=== PATIENT | female | born 1930 | race Caucasian/White ===

== ENCOUNTER 2016-10-11 08:20 | Emergency (ER) | payer MEDICARE ==
[~2016-10-11 08:20] MED LIST: ACYC400T21 PO; ASP81TEC PO; BACI30OI7 TP; BENZ200C25 PO; CALC-250 PO; CPR250T PO; DOCU-143 PO; DOCU-238 PO; HYDR-3816 PO; HYDR-707 PO; LEVO500T2 PO; LEVO500T69 PO; LEVO50TA6 PO; LEVO50TA63 PO; LVT.025T PO; METR500T PO; NITR-65 PO; POLY17PO23 PO; VIT1TABL93 PO; VITAMIN D 10000 UNIT PO; [UNRECOGNIZED DRUG - REMARK]
--- OUTSIDE RECORDS SUMMARY | 2016-10-11 08:25 | XMS REPORT | Continuity of Care Document ---
Author Author [facility] Organization [facility] Address Unknown Phone Unavailable Care Team Providers Care Body And Frame Man Name Role Phone Sasha Mcneil III PCP [phone] Source Comments Some departments are not documenting in the electronic medical record. If you do not see the information that you expected, contact Release of Information in the Health Information Management department at [phone] for further assistance in locating additional records.[facility] Active Allergies and Adverse Reactions Allergen Noted Date Severity Reactions Comments Pineapple 02/24/2015 Medium HIVES Sulfa (Sulfonamide 02/24/2015 High HIVES, SHORTNESS OF Antibiotics) BREATH, EDEMA Tomato 02/24/2015 Medium HIVES Current Medications Prescription Sig. Disp. Refills Start End Date Status Date levothyroxine (SYNTHROID) Take 50 mcg by mouth Active 50 mcg tablet daily. Cholecalciferol (Vitamin Take 5,000 Units by mouth Active D3) 5,000 unit tab at bedtime daily. senna/docusate Take 1 Tab by mouth twice 60 Tab 2 03/20/20 Active (SENOKOT-S) 8.6/50 mg daily. Hold for loose 15 tablet stools. 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 Sosa is an 85 yo with a diagnosis of Paget's disease of the Vulva. PRIOR THERAPY: 1. Status post WLE of a left vulvar lesion which was thought to be VICKIE III, cannot r/o microinvasion. On 03/19/2015 she underwent the WLE and the pathology was c/w: Pagets disease. 2. She presents to the office for postoperative followup. She had a negative mammogram and colonoscopy. L ast Assessment & Plan: The vulva has healed. However she has noted some LLE weakness, especially in getting up out of a sitting position. PLAN: Recommend that she contact her PCP, Dr. Mcneil, for a referral to PT for evaluation. Recommend that she follow up with her referral MD; however, as the patient lives in [place], she is desirous of seeing someone in [place]; so will have her see Dr. Eliazbeth Roper in [place] for routine followup, q 3 months x 2, then q 6 months. If recurrence I will see back. Syncopal episodes 02/24/2015 Overview: At least 4 episodes since summer. Unclear as to what workup done; told due to dehydration. Last 2 episodes over weekend, after showering. L ast Assessment & Plan: 02/24/2015 Due to the syncopal episodes, she will require a cardiac evaluation and workup prior to surgery. She would like done when she lives, in [place] Will need at least an ECHO; she has an intermittent murmur and may require a Holter. Social History Tobacco Use Types Packs/Day Years Used Date Never Smoker Smokeless Tobacco: Never Used Alcohol Use Drinks/Week oz/Week Comments No Last Filed Vital Signs Vital Sign Reading Time Taken Blood Pressure 137/80 06/30/2015 12:48 PM MERCANTILE REPORTER Pulse 65 06/30/2015 12:48 PM [employer]CANTILE REPORTER Temperature 36.4 C (97.5 F) 06/30/2015 12:48 PM MERCANTILE REPORTER Respiratory Rate - - Height 1.651 m (5' 5") 06/30/2015 12:48 PM MERCANTILE REPORTER Weight 66.679 kg (147 lb) 06/30/2015 12:48 PM MERCANTILE REPORTER Body Mass Index 24.46 06/30/2015 12:48 PM MERCANTILE REPORTER Oxygen Saturation 100% 06/30/2015 12:48 PM MERCANTILE REPORTER Plan of Care Health Maintenance Due Date Last Done Comments Physical (Comprehensive) 1938 Exam Pertussis Vaccine 1942 Tetanus Vaccine 01/29/1948 Shingles Vaccine 1991 Osteoporosis Screening 01/29/1996 Prevnar/Pneumovax (#1) 01/29/1996 Influenza Vaccine 04/29/2016 Results from Last 3 Months Not on file
== END 2016-10-11 08:26 | disposition left against medical advice (07) ==
LOC: EDUNIT# 08:20 → ER 08:21
DX: Z53.21 Procedure and treatment not carried out due to patient leaving prior to being seen by health care provider (principal)

== ENCOUNTER → 2018-08-08 | Outpatient (CLI) | payer MEDICARE ==
[~2018-08-08] MED LIST changes: +HYDR-34 PO; -HYDR-3816 PO; -POLY17PO23 PO; +POLY17PO31 PO
--- NOTE | 2018-08-08 17:36 | Diagnostic Imaging Report ---
PROCEDURE: US carotid duplex, bilateral. TECHNIQUE: Multiple real-time grayscale images were obtained over the carotid arteries in various projections, bilaterally. Additional spectral analysis and color Doppler duplex images were also obtained. DATE: August 08, 2018. INDICATION: 88-year-old female, transient ischemic attack. Altered speech. COMPARISON: November 05, 2013. FINDINGS: Peak systolic velocity in the right common carotid artery measures 84 cm/s. Peak systolic velocity in the right external carotid artery measures 77 cm/s. Peak systolic velocity in the right proximal internal carotid artery measures 62 cm/s, 63 cm/s in the mid right internal carotid artery, and 74 cm/s distally. There is patent antegrade flow in the right vertebral artery. Peak systolic velocity in the left common carotid artery measures 91 cm/s. Peak systolic velocity in the left external carotid artery measures 63 cm/s. Peak systolic velocity in the left proximal internal carotid artery measures 62 cm/s, 90 cm/s in the mid left internal carotid artery, and 63 cm/s distally. There is patent antegrade flow in the left vertebral artery. IMPRESSION: 1. Negative for hemodynamically significant right or left internal carotid artery stenosis. 2. Patent antegrade flow in the bilateral vertebral arteries. Parameters based on the consensus panel De Los Santos-Scale and Doppler ultrasound criteria published June 2003, Radiology, Volume 229. DOPPLER (peak systolic velocity M/S Right Left CCA .84 .73 ICA Proximal .61 .62 ICA Mid .63 .90 ICA Distal .73 .62 RATIO .88 1.23 ECA .77 .62 VERT .27 .31 Dictated by: Dictated on workstation # [id number]
== END ==
LOC: RAD 15:30
PROVIDERS: ATTEND Internal Medicine
DX: G45.9 Transient cerebral ischemic attack, unspecified (principal); R47.81 Slurred speech
CPT/HCPCS: 93880

== ENCOUNTER 2019-08-31 13:16 | Emergency (ER) | payer MEDICARE ==
[~2019-08-31] VITALS: Ht 165.1 cm; Wt 63.6 kg
[2019-08-31] MEDS ORDERED: fentaNYL INJECTION 100 MCG/2 ML AMP ONE (13:25)
--- NOTE | 2019-08-31 13:29 | ED Lower Extremity ---
General Chief Complaint: Trauma-Non Activation Stated Complaint: FALL Source: patient, EMS Exam Limitations: no limitations History of Present Illness Date Seen by Provider: Aug 31, 2019 Time Seen by Provider: 13:27 Initial Comments This 89-year-old white female presents after she fell and sustained an injury to her right hip shortly prior to presentation emergency department. She is complaining of pain and deformity of the right hip. She denies other signifi cant injury interaction. She denies injury to her head. She denies associated neck pain or paresthesias in extremities. She denied trauma to the chest abdomen or other extremities other than an abrasion to the right elbow. Allergies and Home Medications Allergies Coded Allergies: Sulfa (Sulfonamide Antibiotics) (Verified Allergy, Unknown, 05/04/14) Home Medications Cholecalciferol 5,000 Unit Capsule, 5,000 UNIT PO HS, (Reported) Hydrocodone Bit/Acetaminophen 1 Each Tablet, 0 EA PO Q4H PRN for PAIN Prescribed by: PAUL PACHECO on 05/22/16 1228 Levofloxacin 500 Mg Tablet, 500 MG PO DAILY Prescribed by: PAUL PACHECO on 05/22/16 1228 Levothyroxine Sodium 50 Mcg Tablet, 50 MCG PO DAILY, (Reported) Metronidazole 500 Mg Tablet, 500 MG PO TID Prescribed by: PAUL PACHECO on 05/22/16 1228 Polyethylene Glycol 3350 17 Gm Powd.pack, 17 GM PO BID Prescribed by: PAUL PACHECO on 05/22/16 1228 Patient Home Medication List Home Medication List Reviewed: Yes Review of Systems Constitutional: No chills, No fever EENTM: no symptoms reported Respiratory: no symptoms reported Cardiovascular: no symptoms reported; No chest pain Gastrointestinal: no symptoms reported; No abdominal pain, No nausea Musculoskeletal: see HPI, joint pain (right hip and right elbow) Skin: No change in color; other Psychiatric/Neurological: No Symptoms Reported (abrasion right elbow) Past Xeknogr-Fumudq-Xpewjo Hx Past Med/Social Hx: Reviewed Nursing Past Med/Soc Hx Patient Social History Recent Hopitalizations: No Immunizations Up To Date Tetanus Booster (TDap): Unknown Date of Pneumonia Vaccine: Aug 29, 2008 Date of Influenza Vaccine: Jun 19, 2015 Seasonal Allergies Seasonal Allergies: No Past Medical History Gallbladder Chronic Bronchitis Reproductive Disorders: No Bladder Infection, Kidney Stones Gastroesophageal Reflux, Pancreatitis, Gall Bladder Disease Osteoporosis Hypothyroidsim Cataract Eczema Family Medical History Cancer 09 BROTHER (ABDOMINAL CANCER ) Family history: Cardiovascular disease 03 MOTHER Family history: Diabetes mellitus 03 MOTHER 09 BROTHER Hypercholesterolemia 09 BROTHER Kidney disease 03 MOTHER 09 BROTHER Malignant neoplasm of lung 09 BROTHER Parkinson's disease 03 MOTHER No Family History of: Abdominal aortic aneurysm Jose Cruz's disease Alcoholism Cancer of colon Cataract Chest pain Congenital heart disease Congestive heart failure Cystic fibrosis Dementia Dysphagia Family history: Allergy Family history: Alzheimer's disease Family history: Arthritis Family history: Asthma Family history: Breast disease Family history: Coronary thrombosis Family history: Gastrointestinal disease Family history: Glaucoma Family history: Hypertension Family history: Osteoporosis Family history: Thyroid disorder Headache Hearing loss Heart disease Hereditary disease History of - anemia History of - disorder History of - respiratory disease History of drug abuse Human immunodeficiency virus (HIV) seropositivity Infertile Myocardial infarction Prostate cancer Psychotic disorder Seizure disorder Stroke Tuberculosis Visual impairment Physical Exam Vital Signs Vital Signs - First Documented 08/31/19 08/31/19 13:18 13:40 Temp 36.1 Pulse 69 Resp 18 B/P (MAP) 164/87 (112) Pulse Ox 96 O2 Delivery Nasal Cannula O2 Flow Rate 1.00 Capillary Refill : Height, Weight, BMI Height: 5'6.00" Weight: 142lbs. 0.0oz. 64.556531vl; 23.3 BMI Method:Stated General Appearance: WD/WN, mild distress HEENT: normal ENT inspection Neck: full range of motion, supple Cardiovascular: regular rate, rhythm Respiratory: lungs clear Gastrointestinal: normal bowel sounds, soft Back: normal inspection Hips: right hip pain Neurologic/Tendon: normal sensation, normal motor functions, normal tendon functions Neurologic/Psychiatric: no motor/sensory deficits, alert, normal mood/affect, oriented x 3 Skin: normal color, warm/dry Progress/Results/Core Measures Results/Orders Lab Results Laboratory Tests Test 08/31/19 13:29 Range/Units White Blood Count 7.3 4.3-11.0 10^3/uL Red Blood Count 5.54 4.35-5.85 10^6/uL Hemoglobin 16.1 H 11.5-16.0 G/DL Hematocrit 48 35-52 % Mean Corpuscular Volume 87 80-99 FL Mean Corpuscular Hemoglobin 29 25-34 PG Mean Corpuscular Hemoglobin Concent 33 32-36 G/DL Red Cell Distribution Width 13.3 10.0-14.5 % Platelet Count 148 130-400 10^3/uL Mean Platelet Volume 10.5 H 7.4-10.4 FL Neutrophils (%) (Auto) 65 42-75 % Lymphocytes (%) (Auto) 22 12-44 % Monocytes (%) (Auto) 9 0-12 % Eosinophils (%) (Auto) 3 0-10 % Basophils (%) (Auto) 0 0-10 % Neutrophils # (Auto) 4.8 1.8-7.8 X 10^3 Lymphocytes # (Auto) 1.6 1.0-4.0 X 10^3 Monocytes # (Auto) 0.7 0.0-1.0 X 10^3 Eosinophils # (Auto) 0.2 0.0-0.3 10^3/uL Basophils # (Auto) 0.0 0.0-0.1 10^3/uL Sodium Level 140 135-145 MMOL/L Potassium Level 4.4 3.6-5.0 MMOL/L Chloride Level 104 98-107 MMOL/L Carbon Dioxide Level 24 21-32 MMOL/L Anion Gap 12 5-14 MMOL/L Blood Urea Nitrogen 23 H 7-18 MG/DL Creatinine 1.39 H 0.60-1.30 MG/DL Estimat Glomerular Filtration Rate 36 BUN/Creatinine Ratio 17 Glucose Level 153 H 70-105 MG/DL Calcium Level 9.5 8.5-10.1 MG/DL Corrected Calcium 9.5 8.5-10.1 MG/DL Total Bilirubin 0.6 0.1-1.0 MG/DL Aspartate Amino Transf (AST/SGOT) 19 5-34 U/L Alanine Aminotransferase (ALT/SGPT) 15 0-55 U/L Alkaline Phosphatase 106 40-136 U/L Total Protein 7.2 6.4-8.2 GM/DL Albumin 4.0 3.2-4.5 GM/DL My Orders Orders - BRADY THAKKAR MD Fentanyl Injection (Sublimaze Injection (08/31/19 13:25) Fentanyl Injection (Sublimaze Injection (08/31/19 13:30) Cbc With Automated Diff (08/31/19 13:31) Comprehensive Metabolic Panel (08/31/19 13:31) Ua Culture If Indicated (08/31/19 13:31) Chest 1 View, Ap/Pa Only (08/31/19 13:31) Ekg Tracing (08/31/19 13:31) Hip, Right, 2 Views (08/31/19 13:47) Elbow, Right, 2 View (08/31/19 13:47) Morphine Injection (Morphine Injection (08/31/19 14:29) Catheter(Uri) To Dependent Ann-Marie (08/31/19 14:33) Medications Given in ED Current Medications Medications Dose Ordered Sig/Tri Route Start Time Stop Time Status Last Admin Dose Admin Fentanyl Citrate 100 mcg STK-MED ONCE .ROUTE 08/31/19 13:25 08/31/19 13:29 DC 08/31/19 13:30 50 MCG Vital Signs/I&O 08/31/19 08/31/19 13:18 13:40 Temp 36.1 Pulse 69 Resp 18 B/P (MAP) 164/87 (112) Pulse Ox 96 O2 Delivery Nasal Cannula O2 Flow Rate 1.00 Progress Progress Note : Time: 14:52 Progress Note The patient's right hip pain was treated initially with 50 g of fentanyl with good improvement for approximately an hour. The patient was then given 4 mg of morphine IV for her right hip pain which was returning. Patient was placed on supplemental oxygen and maintained sats in the high 90s. Radiographic evaluation demonstrated no evidence of fracture of the right elbow. The chest x-ray was unremarkable. X-ray of the right hip demonstrated a right neck fracture. [facility] has no orthopedic coverage this weekend. Telephone consultation was undertaken with Drs. Dowling and Efrain at [facility]. They were kind enough to accept the patient in transfer. Departure Impression Primary Impression: Closed right hip fracture Qualified Codes: S72.001A - Fracture of unspecified part of neck of right femur, initial encounter for closed fracture Disposition: XFER SHT-TRM HOSP Condition: Improved Transfer Transfer Reason: Exceeds level of care Time Spoke to Accepting Phy: 14:[address] Zuniga and Dr. Dowling. Patient is being transferred as we have no orthopedic coverage this weekend that [facility]. Transfer Time: 14:55 Transfer Facility: [facility]. Method of Transfer: EMS Departure-Patient Inst. Referrals: JUAN CARLOS MURILLO DO (PCP/Family) Primary Care Physician BRADY THAKKAR MD Aug 31, 2019 13:29
[2019-08-31] MEDS ORDERED: fentaNYL INJECTION 100 MCG/2 ML AMP IVP ONE (13:30)
[2019-08-31 13:37] LABS: BASOPHILS % (AUTO) 0 % (0-10); EOSINOPHILS # (AUTO) 0.2 10^3/uL (0.0-0.3); EOSINOPHILS % (AUTO) 3 % (0-10); HEMATOCRIT 48 % (35-52); HEMOGLOBIN 16.1 G/DL (11.5-16.0); LYMPHOCYTES # (AUTO) 1.6 X 10^3 (1.0-4.0); LYMPHOCYTES % (AUTO) 22 % (12-44); MEAN CORPUSCULAR HEMOGLOBIN 29 PG (25-34); MEAN CORPUSCULAR HGB CONC 33 G/DL (32-36); MEAN CORPUSCULAR VOLUME 87 FL (80-99); MEAN PLATELET VOLUME 10.5 FL (7.4-10.4); MONOCYTES # (AUTO) 0.7 X 10^3 (0.0-1.0); MONOCYTES % (AUTO) 9 % (0-12); NEUTROPHILS # (AUTO) 4.8 X 10^3 (1.8-7.8); NEUTROPHILS % (AUTO) 65 % (42-75); PLATELET COUNT 148 10^3/uL (130-400); RED CELL DISTRIBUTION WIDTH 13.3 % (10.0-14.5); WHITE BLOOD COUNT 7.3 10^3/uL (4.3-11.0)
[2019-08-31 13:54] LABS: BILIRUBIN,TOTAL 0.6 MG/DL (0.1-1.0); CALCIUM 9.5 MG/DL (8.5-10.1); CREATININE SERUM 1.39 MG/DL (0.60-1.30); POTASSIUM 4.4 MMOL/L (3.6-5.0); TOTAL PROTEIN 7.2 GM/DL (6.4-8.2)
[2019-08-31] MEDS ORDERED: morphine INJ 10 MG/ML 1ML (SYR OR VIAL) IVP STA ×2 (14:29→16:11)
--- NOTE | 2019-08-31 14:29 | Diagnostic Imaging Report ---
INDICATION: Fall. TIME OF EXAM: 2:08 PM COMPARISON is made with prior chest from 05/04/2014. Heart size is stable. The lungs appear to be clear. No infiltrates are seen. There is no effusion or pneumothorax. There is some linear scarring or atelectasis in the left base. IMPRESSION: Stable chest. No acute feature is detected. Dictated by: Dictated on workstation # [id number]
--- NOTE | 2019-08-31 14:30 | Diagnostic Imaging Report ---
INDICATION: Fall onto right hip. TIME OF EXAM: 2:08 PM 2 views of the right hip demonstrate a fracture of the right femoral neck. Femoral acetabular alignment is maintained. Joint space is maintained. Mild coxa varus deformity is seen. IMPRESSION: Right femoral neck fracture. Dictated by: Dictated on workstation # [id number]
--- NOTE | 2019-08-31 14:34 | Diagnostic Imaging Report ---
INDICATION: Fall with right elbow injury. TIME OF EXAM: 02:09 p.m. FINDINGS: Two views of the right elbow were obtained. Alignment is normal. No fracture, dislocation, or effusion is detected. IMPRESSION: No acute bony abnormality is detected. Dictated by: Dictated on workstation # [id number]
[2019-08-31 15:02] LABS: BILIRUBIN,URINE NEGATIVE (NEGATIVE); CLARITY,URINE CLEAR; COLOR,URINE YELLOW; GLUCOSE, URINE (UA) NEGATIVE (NEGATIVE); KETONES,URINE NEGATIVE (NEGATIVE); LEUKOCYTE ESTERASE ,URINE NEGATIVE (NEGATIVE); NITRITE,URINE NEGATIVE (NEGATIVE); PH,URINE 5.5 (5-9); PROTEIN,URINE NEGATIVE (NEGATIVE)
[2019-08-31 15:14] LABS: AMORPHOUS SEDIMENT,UR MOD AMOR URATES /LPF; BACTERIA,URINE TRACE /HPF
[2019-08-31 16:10] VITALS: BP 136/80
== END 2019-08-31 16:10 | disposition short-term general hospital (02) ==
LOC: EDUNIT# 13:16 → ER 13:17
DX: S72.001A Fracture of unspecified part of neck of right femur, initial encounter for closed fracture (principal); J42 Unspecified chronic bronchitis; K21.9 Gastro-esophageal reflux disease without esophagitis; M81.0 Age-related osteoporosis without current pathological fracture; E03.9 Hypothyroidism, unspecified; Z88.2 Allergy status to sulfonamides; Z87.442 Personal history of urinary calculi; Z88.8 Allergy status to other drugs, medicaments and biological substances; Z82.49 Family history of ischemic heart disease and other diseases of the circulatory system; Z80.1 Family history of malignant neoplasm of trachea, bronchus and lung; W19.XXXA Unspecified fall, initial encounter
CPT/HCPCS: 36415; 51702; 71045; 73070; 73502; 80053; 81000; 85025; 93005; 96374; 96375

== ENCOUNTER 2019-09-04 03:30 | Inpatient (IN) | payer MEDICARE ==
[~2019-09-04] VITALS: Ht 165.1 cm; Wt 66.2 kg
[2019-09-04] MEDS ORDERED: ALPRAZolam 0.25 MG (XANAX) TAB PO PRN (13:15)
[2019-09-04] MEDS ORDERED: ONDANSETRON 4 MG (ZOFRAN) ORAL DISSOLVE TAB PO PRN (13:15)
[2019-09-04] MEDS ORDERED: CALCIUM CARBONATE 500 MG (TUMS) TAB.CHEW PO PRN (13:15)
[2019-09-04] MEDS ORDERED: LOPERAMIDE 2 MG (IMODIUM) TABLET PO PRN (13:15)
[2019-09-04] MEDS ORDERED: guaiFENesin/CODEINE (ROBITUSSIN AC) 10ML UDC PO PRN (13:15)
[2019-09-04] MEDS ORDERED: diphenhydrAMINE 25 MG TAB (BENADRYL) PO PRN (13:15)
[2019-09-04] MEDS ORDERED: DOCUSATE SODIUM 100 MG (COLACE) CAP PO PRN (13:15)
[2019-09-04] MEDS ORDERED: ACETAMINOPHEN 500 MG TAB (TYLENOL) PO PRN (13:15)
[2019-09-04] MEDS ORDERED: LACTULOSE SYRUP 10GM/15ML (ENULOSE) 30ML UDC PO PRN (13:15)
[2019-09-04] MEDS ORDERED: FLEET ENEMA ADULT 1 EA BTL PR PRN (13:15)
[2019-09-04] MEDS ORDERED: RIVA10TA PO (13:31)
[2019-09-04] MEDS ORDERED: HYDR-3812 PO (13:31)
--- NOTE | 2019-09-04 13:32 | NUR ---
UPDATED MED REC WITH THE DISCHARGE ORDERS FROM [facility]. NOTE THE FOLLOWING CHANGES WERE MADE AT THAT DISCHARGE. START TAKING: HYDROCODONE 5-325MG 1 TAB Q4H PRN XARELTO 10MG DAILY STOP TAKING: LEVOTHYROXINE 88MCG DAILY I WILL UPDATE THE MED REC BACK TO THE LIST OF MEDICATIONS THE PATIENT WAS TAKING PRIOR TO THIS DISCHARGE AT A LATER DATE FOR PROPER DISCHARGE TO HOME ORDERS. Addendum: 09/05/19 at [address] [facility] REMOVED THE TWO NEW MEDICATIONS THAT WERE ORDERED AT DISCHARGE, XARELTO AND HYDROCODONE. NURSE HAD ALREADY ADDED BACK THE LEVOTHYROXINE THAT WAS DISCONTINUED AT [facility] AND CONTINUED IT. SHE ALSO ADDED OTC VITAMIN D AND COLACE. I LEFT THEM THEY WERE REPORTED BY NURSE ASSUMING THE OTC MEDS WERE HOME MEDS [facility] DID NOT HAVE ON THE DISCHARGE ORDERS.
--- NOTE | 2019-09-04 15:30 | NUR ---
BECKA HU admitted to room 223, with an admitting diagnosis of RIGHT HIP FX S/P HEMIARTHROPLASTY, on 09/04/18 from [facility] via [facility], accompanied by ORACLE BRM DEVELOPER. BECKA HU introduced to surroundings, call light, bed controls, phone, TV, temperature control, lights, meal times, smoking policy, visitor policy, side rail policy, bathrooms and showers. Patient Rights given to patient in the handbook. BECKA HU verbalizes understanding that [facility] is not responsible for the loss or damage to any personal effects or valuables that are kept in the patient's possession during their hospitalization. The following Patient Care Plans were discussed with the PATIENT: Discharge Planning, IMPAIRED MOBILITY, HIGH RISK: IMPAIRED SKIN INTEGRITY, HIGH RISK: INJURY, POTENTIAL FOR INJURY, HIGH RISK: ACTIVITY INTOLERANCE, and KNOWLEDGE DEFICIT. BECKA HU verbalizes understanding of Interdisciplinary Patient Education. Patient received Patient Rights Booklet, which includes Privacy Act Statement and Data Collection Information Summary.
--- NOTE | 2019-09-04 16:01 | Physical Therapy Evaluation ---
PT Evaluation-General Medical Diagnosis Admission Date Medical Diagnosis: right MILAGRO Onset Date: Sep 04, 2019 Therapy Diagnosis Therapy Diagnosis: impaired mobility, strength, endurance, balance Height/Weight Height (Feet): 5 Height (Inches): 6.00 Weight (Pounds): 142 Weight (Ounces): 0.0 Referral Physician: Areli Vazquez DO Reason for Referral: Evaluation/Treatment Social History Home: Single Level Current Living Status: Children Entry Into Home: Stairs Without Railing PT Steps Into Home: 2 Prior Prior Level of Function SCALE: Activities may be completed with or without assistive devices. 3-Chheyookqx-uuvddvh completes the activity by him/herself with no assistance from a helper. 5-Set-up or Clean-up Assistance-helper sets up or cleans up; patient completes activity. Hague assists only prior to or following the activity. 4-Supervision or Touching Assistance-helper provides verbal cues and/or touching/steadying and/or contact guard assistance as patient completes activity. Assistance may be provided throughout the activity or intermittently. 3-Partial/Moderate Assistance-helper does LESS THAN HALF the effort. Hague lifts, holds or supports trunk or limbs, but provides less than half the effort. 2-Substantial/Maximal Assistance-helper does MORE THAN HALF the effort. Hague lifts or holds trunk or limbs and provides more than half the effort. 8-Fndpeyzuw-xunuys does ALL the effort. Patient does none of the effort to complete the activity. Or, the assistance of 2 or more helpers is required for the patient to complete the activity. If activity was not attempted, code reason: 7-Patient Refused. 9-Not Applicable-not attempted and the patient did not perform the activity before the current illness, exacerbation or injury. 10-Not Attempted due to Environmental Limitations-(lack of equipment, weather restraints, etc.). 88-Not Attempted due to Medical Conditions or Safety Concerns. Bed Mobility: 6 Transfers (B,C,W/C): 6 Gait: 6 Stairs: 6 Indoor Mobility (Ambulation): Independent Stairs: Independent PT Evaluation-Current Subjective Patient in WC pre tx, agrees to PT, has 7/10 pain in right hip. Patient just got to this facility via van. Will be co-treating with OT for part of treatment. Pt/Family Goals to be independent at home Objective Patient Orientation: Person, Place, Situation ROM/Strength ROM Lower Extremities limited due to pain and surgery Strength Lower Extremities knee flexion 3-/5 on the right, knee flexion 3/5, dorsiflexion 4/5, LLE 4/5 gross Sensory Hearing: Functional Sensation Right Lower Extremit: Intact Sensation Left Lower Extremity: Intact Transfers Roll Left to Right (QC): 2 Lying to Sitting/Side of Bed(Q: 2 Sit to Stand (QC): 3 Chair/Tie-hd-Bjzrl Xfer(QC): 3 Toilet Transfer: 3 Patient performs bed mobility with max assist, supine <-> sit max assist, sit <- > stand mod assist, transfers mod assist. Patient doesn't bear much weight on her right leg, very antalgic. Gait Does the Patient Walk?: Yes Mode of Locomotion: Walk Anticipated Mode of Locomotion: Walk Gait Assistive Device: FWW Comments/Gait Description Patient can only ambulate a couple of feet using a rolling walker with mod assist. She cannot bear much weight on her right leg and cannot support her weight through her arms. Wheelchair Training Does the Pt Use a Wheelchair?: Yes Wheel 50 ft with 2 turns (QC): 1 Wheel 150 ft (QC): 1 Type of Wheelchair: Manual Stairs No stairs performed at this time because patient is not able to ambulate more than a couple of feet. Balance Sitting Static: Normal Sitting Dynamic: Fair Standing Static: Poor Standing Dynamic: Poor Picking up an Object (QC): 88 Treatment Patient was toileted, needed mod assist for toilet transfer, she was able to wipe herself while standing. Patient in bed post tx with nurse call, phone, tray, all needs met. Assessment/Needs Patient has impaired mobility, strength, endurance, balance post right MILAGRO. Patient cannot bear much weight through her right leg due to pain and cannot support herself through her arms. Rehab Potential: Fair PT Short Term Goals Short Term Goals Time Frame: Sep 11, 2019 Roll Left & Right: 3 Sit to lyin Lying to sitting on side of be: 3 Sit to stand: 3 Chair/oqa-gt-icfqp transfer: 3 Walk 10 feet: 3 PT Supervisor Audit Clerks Goals Supervisor Audit Clerks Goals PT Intermediate Goals Time Frame: Sep 25, 2019 Roll Left & Right (QC): 6 Sit to Lying (QC): 6 Lying-Sitting on Side/Bed(QC): 6 Sit to Stand (QC): 4 Chair/Izv-by-Qzaru Xfer(QC): 4 Toilet Transfer (QC): 4 Car Transfer (QC): 3 Walk 10 feet (QC): 3 Walk 50ft with 2 Turns (QC): 3 Walk 150 ft (QC): 3 Walking 10ft on Uneven Surface: 3 1 Step (curb) (QC): 3 4 Steps (QC): 3 PT Plan Problem List Problem List: Activity Tolerance, Functional Strength, Safety, Balance, Gait, Transfer, Bed Mobility, ROM Treatment/Plan Treatment Plan: Continue Plan of Care Treatment Plan: Bed Mobility, Education, Functional Activity Dexter, Functional Strength, Group Therapy, Gait, Safety, Therapeutic Exercise, Transfers Treatment Duration: Sep 25, 2019 Frequency: At least 5 of 7 days/Wk (IRF) Estimated Hrs Per Day: 1.5 hours per day Patient and/or Family Agrees t: Yes Safety Risks/Education Patient Education: Gait Training, Transfer Techniques, Reviewed Precautions, Correct Positioning, Safety Issues Teaching Recipient: Patient Teaching Methods: Demonstration, Discussion Response to Teaching: Reinforcement Needed Discharge Recommendations Plan Patient will perform bed mobility and transfer training, balance and endurance training, functional strengthening, stair training, gait training, and education, to improve functional mobility and independence at home. Therapy Discharge Recommendati: Other, See Comments (home with family) Time/GCodes Time In: 1520 Time Out: 1600 Total Billed Treatment Time: 30 Total Billed Treatment 1 visit EVM 10' OT eval from [id number], PT eval from [id number], co-treat from [id number]. ABE LEE PT Sep 04, 2019 16:01
[2019-09-04 16:30] VITALS: BP 142/77
[2019-09-04] MEDS ORDERED: ENOXAPARIN 40 MG/0.4 ML (LOVENOX) SYR SC SCH (16:30)
[2019-09-04 16:34] VITALS: BP 142/77
--- NOTE | 2019-09-04 16:41 | Occupational Therapy Eval ---
OT Evaluation-General/PLF Medical Diagnosis Admission Date Sep 04, 2019 at 03:30 Medical Diagnosis: Right hip fx, hip arthroplasty Onset Date: Sep 04, 2019 Therapy Diagnosis Therapy Diagnosis: Weakness Height/Weight Height (Feet): 5 Height (Inches): 6.00 Weight (Pounds): 142 Weight (Ounces): 0.0 Precautions Precautions/Isolations: Fall Prevention, Standard Precautions, Pressure Ulcer Weight Bear Status Weight Bearing Restriction: Weight Bearing/Tolerated Hip precautions Referral Physician: Dr. Vazquez Referral Reason: Activity Tolerance, Self Care, Evaluation/Treatment, Strengthening/ROM Medical History Current History Pt. fell at home and sustained right hip fx. [place] completed. WBAT. Reviewed History: Yes Social History Home: Single Level Current Living Status: Children Entry Into Home: Stairs With Railing Steps Into Home: 2 ADL-Prior Level of Function SCALE: Activities may be completed with or without assistive devices. 7-Drktvfzpdd-pcxvyvx completes the activity by him/herself with no assistance from a helper. 5-Set-up or Clean-up Assistance-helper sets up or cleans up; patient completes activity. [place] assists only prior to or following the activity. 4-Supervision or Touching Assistance-helper provides verbal cues and/or touchi ng/steadying and/or contact guard assistance as patient completes activity. Assistance may be provided throughout the activity or intermittently. 3-Partial/Moderate Assistance-helper does LESS THAN HALF the effort. [place] lifts, holds or supports trunk or limbs, but provides less than half the effort. 2-Substantial/Maximal Assistance-helper does MORE THAN HALF the effort. [place] lifts or holds trunk or limbs and provides more than half the effort. 5-Yhmdpptqi-zdveom does ALL the effort. Patient does none of the effort to complete the activity. Or, the assistance of 2 or more helpers is required for the patient to complete the activity. If activity was not attempted, code reason: 7-Patient Refused. 9-Not Applicable-not attempted and the patient did not perform the activity before the current illness, exacerbation or injury. 10-Not Attempted due to Environmental Limitations-(lack of equipment, weather restraints, etc.). 88-Not Attempted due to Medical Conditions or Safety Concerns. ADL PLOF Comments Pt. states that she was independent with daily tasks. Reports that she did not use a walker. Self Care: Independent Functional Cognition: Independent OT Current Status Subjective Pt. reports 7/10 pain in right hip. Had pain medication approximately 2 hours previous in prior hospital. Appearance Pt. up in wheelchair. Has just arrived to ARU. Mental Status/Objective Patient Orientation: Person, Place Current Glasses/Contacts: Yes ADL-Treatment Lower Body Dressing (QC): 1 On/Off Footwear (QC): 1 Toileting Hygiene (QC): 3 Pt. stood from wheelchair with max assist. While in stance, another therapist placed BSC. Mod to sit on BSC. Co-treatment completed as pt. has arrived from [place], and reports pain and fatigue. OT facilitated ADL skill with toileting and PT addressed transfer. Pt. stood again with mod assist and able to cleanse autumn area. Pt. does not have underwear on to manage. Pt. stands again and transfers to bedside. All needs met and PT took over session. Education OT Patient Education: Correct positioning, Modified ADL techniques, Progress toward Goal/Update tx plan, Purpose of tx/functional activities, Reviewed precautions, Rehab process, Transfer techniques Teaching Recipient: Patient Teaching Methods: Demonstration, Discussion Response to Teaching: Verbalize Understanding, Return Demonstration OT Short Term Goals Short Term Goals Time Frame: Sep 11, 2019 Eatin Oral hygiene: 5 Toileting hygiene: 4 Shower/bathe self: 3 Upper body dressin Lower body dressin Putting on/taking off footwear: 3 OT Fci Goals Fci Goals Time Frame: Sep 18, 2019 Eating (QC): 6 Oral Hygiene (QC): 6 Toileting Hygiene (QC): 5 Shower/Bathe Self (QC): 5 Upper Body Dressing (QC): 5 Lower Body Dressing (QC): 5 On/Off Footwear (QC): 5 Additional Goals: 1-Demonstrate ADL Tasks, 2-Verbalize Understanding, 3- ImproveStrength/[place] 1=Demonstrate adherence to instructed precautions during ADL tasks. 2=Patient will verbalize/demonstrate understanding of assistive devices/modifications for ADL. 3=Patient will improve strength/tolerance for activity to enable patient to perform ADL's. OT Education/Plan Problem List/Assessment Assessment: Decreased Activ Tolerance, Dependent Transfers, Impaired Bed M obility, Impaired Funct Balance, Impaired I ADL's, Impaired Self-Care Skills Discharge Recommendations Plan/Recommendations: Continue POC Therapy Discharge Recommendati: Home & Family, Post Acute OT Comment Further equipment needs to be determined. Treatment Plan/Plan of Care Treatment,Training & Education: Yes Patient would benefit from OT for education, treatment and training to promote independence in ADL's, mobility, safety and/or upper extremity function for ADL's. Plan of Care: ADL Retraining, Functional Mobility, Group Exercise/Act as Ind, UE Funct Exercise/Act Treatment Duration: Sep 18, 2019 Frequency: At least 5 of 7 days/Wk (IRF) Estimated Hrs Per Day: 1.5 hours per day Agreement: Yes Rehab Potential: Good Time/GCodes Start Time: 15:20 Stop Time: 15:45 Total Time Billed (hr/min): 15 Billed Treatment Time [id number] 1, EVH x 10 minutes [id number] PT eval, no charge [phone] 1, visit no charge- co-treatment briefly. Please see above note for designated roles. SEAN MORIN OT Sep 04, 2019 16:41
--- NOTE | 2019-09-04 17:00 | NUR ---
NO BM X 4 DAYS AND MEDICATED WITH DULCOLAX SUPPOSITORY. DENIES PAIN WHILE LYING STILL, BUT RIGHT HIP PAIN WITH ANY MOVEMENT. REFUSES NEED FOR LORTAB. SON VISITING. STATES HAS POOR APPETITE AND ENSURE ADDED TO MEALS.
[2019-09-04 17:04] VITALS: BP 142/77
[2019-09-04] MEDS ORDERED: DOCU-238 PO (17:25)
[2019-09-04] MEDS ORDERED: CALC-250 PO (17:25)
[2019-09-04] MEDS ORDERED: LEVO88TA54 PO (17:25)
[2019-09-04] MEDS ORDERED: RX-HYDROCODONE/APAP 5/325 MG #4 TAB PK PO PRN (17:45)
[2019-09-04] MEDS: BISACODYL 10 MG SUPP (DULCOLAX) PR PRN (17:54)
[2019-09-04] MEDS: POLYETHYLENE GLYCOL 17 GM (MIRALAX) PACK PO SCH (19:48)
[2019-09-04] MEDS: DOCUSATE SODIUM 100 MG (COLACE) CAP PO SCH (19:49)
[2019-09-04] MEDS: HYDROcodone/APAP 5 MG/325 MG (LORTAB) TAB PO PRN (19:49)
[2019-09-04] MEDS: SENNA W/DOCUSATE (SENOKOT S) TABLET PO SCH (19:49)
[2019-09-04] MEDS: MELATONIN 3 MG TABLET PO PRN (19:49)
[2019-09-05 05:21] LABS: BASOPHILS % (AUTO) 0 % (0-10); EOSINOPHILS # (AUTO) 0.5 10^3/uL (0.0-0.3); EOSINOPHILS % (AUTO) 5 % (0-10); HEMATOCRIT 33 % (35-52); LYMPHOCYTES # (AUTO) 1.4 X 10^3 (1.0-4.0); LYMPHOCYTES % (AUTO) 15 % (12-44); MEAN CORPUSCULAR HEMOGLOBIN 29 PG (25-34); MEAN CORPUSCULAR HGB CONC 33 G/DL (32-36); MEAN CORPUSCULAR VOLUME 88 FL (80-99); MEAN PLATELET VOLUME 10.6 FL (7.4-10.4); MONOCYTES % (AUTO) 11 % (0-12); NEUTROPHILS # (AUTO) 6.2 X 10^3 (1.8-7.8); NEUTROPHILS % (AUTO) 68 % (42-75); PLATELET COUNT 158 10^3/uL (130-400); RED CELL DISTRIBUTION WIDTH 13.1 % (10.0-14.5); WHITE BLOOD COUNT 9.2 10^3/uL (4.3-11.0)
[2019-09-05 05:26] LABS: HEMOGLOBIN 10.7 G/DL (11.5-16.0)
[2019-09-05] MEDS: LEVOTHYROXINE 88 MCG (LEVOTHORID) TAB PO SCH (05:41)
[2019-09-05] MEDS: HYDROcodone/APAP 5 MG/325 MG (LORTAB) TAB PO PRN ×3 (05:41→20:03)
[2019-09-05 05:45] LABS: ALBUMIN 2.8 GM/DL (3.2-4.5); BILIRUBIN,TOTAL 0.9 MG/DL (0.1-1.0); CALCIUM 8.8 MG/DL (8.5-10.1); CREATININE SERUM 0.96 MG/DL (0.60-1.30); POTASSIUM 4.3 MMOL/L (3.6-5.0); TOTAL PROTEIN 5.6 GM/DL (6.4-8.2)
[2019-09-05 06:00] VITALS: BP 134/78
--- NOTE | 2019-09-05 06:48 | NUR ---
CONTACTED DR. PACHECO OF [facility] 10.1 THIS MORNING FROM PREVIOUS [facility] ON 08/31 BEING 16.1, OF SUCH A DRASTIC CHANGE. NO NEW ORDERS AT THIS TIME.
--- NOTE | 2019-09-05 08:00 | NUR ---
COMPLAIN RESTLESS NIGHT - "KEPT TRYING TO GET SUZANNE HOSE OFF". K PAD ORDERED FOR COMPLAINTS OF BACK SPASMS. STATES LORTAB IS HELPING RIGHT HIP PAIN. NO BM AFTER DULCOLAX SUPPOSITORY YESTERDAY AFTERNOON AND WILL REMEDICATE THIS AM. 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
[2019-09-05] MEDS: RIVAROXABAN 10 MG TABLET (XARELTO) PO SCH (08:17)
[2019-09-05] MEDS: SENNA W/DOCUSATE (SENOKOT S) TABLET PO SCH ×2 (08:17→20:01)
[2019-09-05] MEDS: VITAMIN D3 5,000 UNITS (CHOLECALCIFEROL ) CAPSULE PO SCH (08:17)
[2019-09-05] MEDS: DOCUSATE SODIUM 100 MG (COLACE) CAP PO SCH ×2 (08:17→20:01)
[2019-09-05] MEDS: BISACODYL 10 MG SUPP (DULCOLAX) PR PRN (08:18)
[2019-09-05] MEDS: POLYETHYLENE GLYCOL 17 GM (MIRALAX) PACK PO SCH ×2 (08:18→19:52)
--- NOTE | 2019-09-05 10:02 | PM&R Post Admission Assessment ---
PM&R HP Date of Visit: Sep 05, 2019 Time of Visit: 09:00 History of Present Illness Chief complaint: Right hip fracture sustained in fall in need of inpatient rehabilitation for recovery History of present illness: This is an 89-year-old white female clinic patient of Dr. Mcneil who has a past medical history of diverticulosis, Paget's disease and hypothyroidism who presents to the [facility] inpatient rehabilitation to recover after suffering a right hip fracture in a fall at home. 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 We will work on aggressive therapies in order to regain function enough to return to independent living. She is the sister of one of my current patient's and she helps out a great deal taking care of her who is about to turn 89. Her bowels have not moved for 5 days so we have given a great deal of laxatives and will try another suppository that's not successful will initiate a soapsuds enema. Patient does not like to take the hydrocodone but when she takes it it does help with the pain. We did restart all of her home medications which also includes Eliquis for DVT prophylaxis which was started at [facility]. 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[place]) Alcohol Use: Denies Use Recreational Drug Use: No Smoking Status: Never a Smoker 2nd Hand Smoke Exposure: No Physical Abuse Screen: No Sexual Abuse: No Recent Foreign Travel: No Contact w/other who traveled: No Recent Hopitalizations: No (AT [facility] FOR RIGHT HIP HEMIARTHOPLASTY 20) Recent Infectious Disease Expo: No Immunizations Up To Date Tetanus Booster (TDap): Unknown Date of Pneumonia Vaccine: Aug 29, 2008 Date of Influenza Vaccine: May 29, 2019 Seasonal Allergies Seasonal Allergies: No Past Medical History Surgeries: Gallbladder, Orthopedic Currently Using CPAP: No Currently Using BIPAP: No Reproductive: No Genitourinary: Kidney Stones Gastrointestinal: Gastroesophageal Reflux, Diverticulosis, Pancreatitis, Gall Bladder Disease Musculoskeletal: Osteoporosis Paget's disease Endocrine: Hypothyroidsim HEENT: Cataract Skin/Integumentary: Eczema History of Blood Disorders: No Family History Cancer 09 BROTHER (ABDOMINAL CANCER ) Family history: Cardiovascular disease 03 MOTHER Family history: Diabetes mellitus 03 MOTHER 09 BROTHER Hypercholesterolemia 09 BROTHER Kidney disease 03 MOTHER 09 BROTHER Malignant neoplasm of lung 09 BROTHER Parkinson's disease 03 MOTHER No Family History of: Abdominal aortic aneurysm [place]'s disease Alcoholism Cancer of colon Cataract Chest pain Congenital heart disease Congestive heart failure Cystic fibrosis Dementia Dysphagia Family history: Allergy Family history: Alzheimer's disease Family history: Arthritis Family history: Asthma Family history: Breast disease Family history: Coronary thrombosis Family history: Gastrointestinal disease Family history: Glaucoma Family history: Hypertension Family history: Osteoporosis Family history: Thyroid disorder Headache Hearing loss Heart disease Hereditary disease History of - anemia History of - disorder History of - respiratory disease History of drug abuse Human immunodeficiency virus (HIV) seropositivity Infertile Myocardial infarction Prostate cancer Psychotic disorder Seizure disorder Stroke Tuberculosis Visual impairment Prior Level of Function Bed Mobility: 6 Transfers: 6 Gait: 6 Stairs: 6 Indoor Mobility (Ambulation): Independent Stairs: Independent Self Care: Independent Functional Cognition: Independent Current Level of Fuctioning Roll Left to Right: 2 Lying to Sitting/Side of Bed: 2 Sit to Stand: 3 Chair/Got-fc-Hemjh Xfer: 3 Does the Patient Walk: Yes Mode of Locomotion: Walk Anticipated Mode of Locomotion: Walk Gait Assistive Device: FWW Does the Pt Use a Wheelchair: Yes Wheel 50 ft with 2 turns: 1 Wheel 150 ft: 1 Type of Wheelchair: Manual Picking up an Object: 89 Lower Body Dressin On/Off Footwear: 1 Toileting Hygiene: 3 PM&R Allergy/Meds/Data Review Allergies Coded Allergies: Sulfa (Sulfonamide Antibiotics) (Verified Allergy, Unknown, 05/04/14) Home Medications Scheduled Cholecalciferol (Vitamin D), 5,000 UNIT PO DAILY Docusate Sodium (Stool Softener), 100 MG PO DAILY Levothyroxine Sodium (Levothyroxine Sodium), 88 MCG PO DAILY Discontinued Medications Cholecalciferol (Vitamin D), 5,000 UNIT PO HS, (Reported) Discontinued Reason: No Longer Taking Hydrocodone Bit/Acetaminophen (Lortab 7.5 Mg Tablet), 0 EA PO Q4H PRN for PAIN Discontinued Reason: No Longer Taking Levofloxacin (Levaquin), 500 MG PO DAILY Discontinued Reason: No Longer Taking Levothyroxine Sodium (Levothyroxine Sodium), 50 MCG PO DAILY, (Reported) Discontinued Reason: No Longer Taking Metronidazole (Flagyl), 500 MG PO TID Discontinued Reason: No Longer Taking Polyethylene Glycol 3350 (Polyethylene Glycol 3350), 17 GM PO BID Discontinued Reason: No Longer Taking Current Medications Current Medications Reviewed Laboratory Data Laboratory Tests 09/05/19 05:04: White Blood Count 9.2, Red Blood Count 3.70L, Hemoglobin 10.7#L, Hematocrit 33L, Mean Corpuscular Volume 88, Mean Corpuscular Hemoglobin 29, Mean Corpuscular Hemoglobin Concent 33, Red Cell Distribution Width 13.1, Platelet Count 158, Mean Platelet Volume 10.6H, Neutrophils (%) (Auto) 68, Lymphocytes (%) (Auto) 15, Monocytes (%) (Auto) 11, Eosinophils (%) (Auto) 5, Basophils (%) (Auto) 0, Neutrophils # (Auto) 6.2, Lymphocytes # (Auto) 1.4, Monocytes # (Auto) 1.0, Eosinophils # (Auto) 0.5H, Basophils # (Auto) 0.0, Sodium Level 138, Potassium Level 4.3, Chloride Level 105, Carbon Dioxide Level 23, Anion Gap 10, Blood Urea Nitrogen 25H, Creatinine 0.96, Estimat Glomerular Filtration Rate 55, BUN/Creatinine Ratio 26, Glucose Level 149H, Calcium Level 8.8, Corrected Calcium 9.8, Total Bilirubin 0.9, Aspartate Amino Transf (AST/SGOT) 30, Alanine Aminotransferase (ALT/SGPT) 22, Alkaline Phosphatase 83, Total Protein 5.6L, Albumin 2.8L Review of Systems Constitutional: see HPI, dizziness, malaise, weakness EENTM: no symptoms reported Respiratory: no symptoms reported Cardiovascular: no symptoms reported Gastrointestinal: constipation Genitourinary: incontinence Musculoskeletal: back pain, joint pain Skin: no symptoms reported Psychiatric/Neurological: Depressed All Other Systems Reviewed Negative Unless Noted: Yes Physical Exam Physical Exam Vital Signs Vital Signs - First Documented 09/04/19 16:30 Temp 36.2 Pulse 86 Resp 16 B/P (MAP) 142/77 (98) Pulse Ox 93 O2 Delivery Room Air Capillary Refill : Less Than 3 SecondsLess Than 3 Seconds Height, Weight, BMI Height: 5'6.00" Weight: 142lbs. 0.0oz. [id number]; 25.31 BMI Method:Stated General Appearance: No Apparent Distress, WD/WN, Chronically ill, Thin Eyes: Bilateral Eye Normal Inspection, Bilateral Eye PERRL HEENT: PERRL/EOMI, Normal ENT Inspection, Pharynx Normal Neck: Full Range of Motion, Normal Inspection, Non Tender, Supple, Carotid Bruit Respiratory: Chest Non Tender, Lungs Clear, Normal Breath Sounds, No Accessory Muscle Use, No Respiratory Distress Cardiovascular: Regular Rate, Rhythm, No Edema, No Gallop, No JVD, No Murmur, Normal Peripheral Pulses Gastrointestinal: Normal Bowel Sounds, No Organomegaly, No Pulsatile Mass, Non Tender, Soft Back: Normal Inspection, Decreased Range of Motion Extremity: Normal Capillary Refill, Normal Inspection, Normal Range of Motion (right leg limited range of motion due to pain), Non Tender, No Calf Tenderness, No Pedal Edema Neurologic/Psychiatric: Alert, Oriented x3, No Motor/Sensory Deficits, Normal Mood/Affect, 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 II-XII Norm as Tested, Other (limited range of motion from right leg pain) Skin: Normal Color, Warm/Dry Lymphatic: No Adenopathy PM&R Medical Assessment & Plan REHAB/MEDICAL ASSESSMENT AND PLAN: REHAB IMPAIRMENT GROUP: Right femoral neck fracture ETIOLOGIC DIAGNOSIS: Right femoral neck fracture The comorbidities that impact the patients function and/or functional outcome by: Advanced age of 89, Paget's disease, history of diverticulosis, narcotic ginger wel severe constipation currently REHAB PLAN: The patient is being admitted to our comprehensive inpatient rehabilitation facility and can tolerate the intensity of service consisting of at least: 180 minutes of therapy a day, 5 out of 7 days a week Rehab treatment will consist of: Physical therapy and occupational therapy will work on regaining enough independence to return home to live independently The patient/family has a good understanding of our discharge process and will benefit from an interdisciplinary inpatient rehabilitation program. The patient has potential to make improvement and is in need of at least two of the following multidisciplinary therapies including but not limited to physical, occupational, speech, and prosthetics and orthotics. Additionally the patient will need services from respiratory, nutritional services, wound care, psychology, etc. (Customize this to each patient). Given the patients complex condition and risk of further medical complications, rehabilitation services cannot be safely or effectively provided at a lower level of care such as a residential facility. BARRIERS TO DISCHARGE: Lives alone and currently having severe pain ESTIMATED LOS: 10 days DISPOSITION: Home with home care RELEVANT CHANGES SINCE PREADMISSION SCREENING: I have compared the patients medical and functional status at the time of the preadmission screening and there are: no changes PROGNOSIS: Good REHABILITATION GOALS: 1. PT OT ST will focus on regaining enough independence in order to return back to independent living while decreasing pain and the use of assistive devices All the above goals were reviewed with the patient and he/she is in agreement. By signing this document, I acknowledge that I have personally performed a full physical examination on this patient within 24 hours of admission to this inpatient rehabilitation facility and have determined the patient to be able to tolerate the above course of treatment at an intensive level for a reasonable period of time. I will be completing a detailed individualized Plan of Care for this patient by day #4 of the patients stay based upon the Preadmission Screen, the Post-Admission Evaluation, and the therapy evaluations. Admission Dx/Comorbidities: (1) Closed right hip fracture Status: Acute ICD Codes: S72.001A - Fracture of unspecified part of neck of right femur, initial encounter for closed fracture (2) Hypothyroidism ICD Codes: E03.9 - Hypothyroidism, unspecified (3) Paget's disease (4) Osteoporosis ICD Codes: M81.0 - Age-related osteoporosis without current pathological fracture (5) Falls ICD Codes: W19.XXXA - Unspecified fall, initial encounter (6) DVT prophylaxis ICD Codes: Z29.9 - Encounter for prophylactic measures, unspecified (7) Anemia ICD Codes: D64.9 - Anemia, unspecified (8) Diverticulosis ICD Codes: K57.90 - Diverticulosis of intestine, part unspecified, without perforation or abscess without bleeding (9) Constipation ICD Codes: K59.00 - Constipation, unspecified (10) Incontinence ICD Codes: R32 - Unspecified urinary incontinence (11) Advanced age ICD Codes: R54 - Age-related physical debility PAUL PACHECO DO Sep 05, 2019 10:02
--- NOTE | 2019-09-05 10:15 | ST Cognitive Linguistic Eval ---
Speech Evaluation-General Medical Diagnosis Right hip fx, hip arthroplasty Onset Date: Sep 04, 2019 Therapy Diagnosis Therapy Diagnosis: Cognitive-Communication Referral Referring Physician: Dr. Vazquez Reason for Referral: Evaluation/Treatment Medical History Reviewed History: Yes Social History Current Living Status: Children Speech PLF-Current Status Prior Level of Function Patient lived with her son at home and was assisted with daily activities as needed. Subjective Patient was finishing her breakfast in her bed upon arrival. She was alert and cooperative throughout the evaluation. Language Eval: Auditory Comprehends Simple Yes/No Ques: Functional Indent/Objects Multiple Pereira: Functional Ident/Pics in Multiple Pereira: Functional Follows 1-Step Commands: Functional Follows Complex Directions: Functional Follows General Conversations: Functional Language Eval: Verbal Language Completes Spontaneous Greeting: Functional Produces Auto, Serial Info: Functional Imitates Simple Words/Phrases: Functional Word Finding: Functional Requests Basic Needs: Functional States Basic Personal Info: Functional Expresses Complex Ideas: Functional Objective Cognitive Domain Attention: WNL Memory: Mild Problem Solving: Functional Executive Functions: Mild Visuospatial Skills: WNL Composite Severity Rating: Mild Clock Drawing Severity Rating: Mild Objective Formal/Standardized Tests [facility] Mental Status (UMS) Results Patient scored 24/30 on the SLUMS which is 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 Oral Motor/Speech Production Within normal limits. Impression Patient was admitted to ARU s/p right hip fracture. Patient was given the SLUMS at bedside. Patient scored 24/30 was obtained, which is in the MNCD range of function. Patient qualifies for skilled speech therapy to address cognitive-co mmunication deficits and improve safety and independence when she returns home. Speech Patient Assess Expression of Ideas/Wants: Expression (4) Understanding Verbal Content: Understands (4) Brief Interview-Mental Status: Yes Repetition of Three Words: Three (3) Temporal Orientation: Year: Correct (3) Temporal Orientation: Month: Accurate within 5 days(2) Temporal Orientation: Day: Correct (1) Recall : Wear to say "Sock": Yes, no cue required (2) Recall : Color: Yes, no cue required (2) Recall : Bed: Yes,after cueing (1) Memory/Recall Ability: Current season, That he or she is in a hsp/hsp unit Speech Short Term Goals Short Term Goals Short Term Goals 1. Patient will complete memory tasks related to her daily needs with 90% or greater with minimal cues. 2. Patient will complete problem-solving tasks related to her daily needs with 90% or greater with minimal cues. 3. Patient will complete safety awareness tasks related to her daily needs with 90% or greater with minimal cues. Speech Prison Goals Graphic Coordinator Goals Patient will improve cognitive-communication necessary for safety and daily living tasks with minimal assist. Speech-Plan Patient/Family Goals Patient/Family Goals: Patient will return to prior living situation or most appropriate accomodation as determined by the rehab team. Treatment Plan Speech Therapy Treatment Plan: Continue Plan of Care Patient will receive skilled speech therapy to address cognitive-communication. Treatment Duration: Sep 14, 2019 Frequency: 5 times per week Estimated Hrs Per Day: .5 hour per day Rehab Potential: Fair Barriers to Learning: Patient has cognitive deficits. Pt/Family Agrees to Plan: Yes Safety Risks/Education Teaching Recipient: Patient Teaching Methods: Discussion Response to Teaching: Verbalize Understanding Education Topics Provided: Patient was educated on the need for speech therapy in order to safely return home. Time Speech Therapy Time In: 08:15 Speech Therapy Time Out: 08:30 Total Billed Time: 15 Billed Treatment Time 1, COGN TEST No DYAN MCGRAW Sep 05, 2019 10:15
--- NOTE | 2019-09-05 11:15 | Occupational Ther Daily Note ---
OT Current Status-Daily Note Subjective Pt in bed, agrees to therapy. Pt has no c/o pain at rest and reports 5/10 pain with movement. ADL-Treatment Pt supine to sit with max assist and increased time, skilled cues for technique. Sit to stand with mod assist from raised bed. Pt able to take a few small steps to BSC with mod assist using FWW, cues for safety and walker use. Pt moves slowly and requires increased time for mobility. Pt requires assist to manage brief down/up, but pt able to complete toileting hygiene after BM. Transfer to w/c with mod assist. Pt declined to attempt shower today secondary to fatigue, but agrees to sponge bath. Pt able to wash upper body with increased time. Pt requires assist to complete lower body hygiene. Don pullover shirt with minimal assistance to pull down in back. Pt requires assist to thread bilateral LE into Depends and pants. Sit to stand with mod assist. Pt requires assist to pull pants up over hips. Increased time for bathing and dressing tasks. Pt unable to doff/don socks without AE. Pt instructed in use of AE for LE dressing. Pt doffed socks with SBA and increased time using dressing stick, skilled cues for use. Pt donned socks with mod assist using sock aid. Grooming tasks completed seated at sink. Pt brushed teeth and combed hair with set up. Pt fatigues with activity and requires occasional rest breaks throughout treatment. Pt sitting in w/c with needs met and RN present after session. Therapy Code Descriptions/Definitions Functional [place] Measure: 0=Not Assessed/NA 4=Minimal Assistance 1=Total Assistance 5=Supervision or Setup 2=Maximal Assistance 6=Modified [place] 3=Moderate Assistance 7=Complete IndependenceSCALE: Activities may be completed with or without assistive devices. 9-Baektyrrqj-dsjoltq completes the activity by him/herself with no assistance from a helper. 5-Set-up or Clean-up Assistance-helper sets up or cleans up; patient completes activity. [place] assists only prior to or following the activity. 4-Supervision or Touching Assistance-helper provides verbal cues and/or touching/steadying and/or contact guard assistance as patient completes activity. Assistance may be provided throughout the activity or intermittently. 3-Partial/Moderate Assistance-helper does LESS THAN HALF the effort. [place] lifts, holds or supports trunk or limbs, but provides less than half the effort. 2-Substantial/Maximal Assistance-helper does MORE THAN HALF the effort. [place] lifts or holds trunk or limbs and provides more than half the effort. 5-Wzusaywje-vqalxr does ALL the effort. Patient does none of the effort to complete the activity. Or, the assistance of 2 or more helpers is required for the patient to complete the activity. If activity was not attempted, code reason: 7-Patient Refused. 9-Not Applicable-not attempted and the patient did not perform the activity before the current illness, exacerbation or injury. 10-Not Attempted due to Environmental Limitations-(lack of equipment, weather restraints, etc.). 88-Not Attempted due to Medical Conditions or Safety Concerns. Oral Hygiene (QC): 5 Shower/Bathe Self (QC): 3 Upper Body Dressing (QC): 3 Lower Body Dressing (QC): 2 On/Off Footwear: 1 Toileting Hygiene (QC): 2 Toilet Transfer (QC): 3 Education OT Patient Education: Modified ADL techniques, Rehab process Teaching Recipient: Patient Teaching Methods: Discussion Response to Teaching: Verbalize Understanding, Reinforcement Needed OT Short Term Goals Short Term Goals Time Frame: Sep 11, 2019 Eatin Oral hygiene: 5 Toileting hygiene: 4 Shower/bathe self: 3 Upper body dressin Lower body dressin Putting on/taking off footwear: 3 OT Business Management Specialist Goals Long-Term Goals Time Frame: Sep 18, 2019 Eating (QC): 6 Oral Hygiene (QC): 6 Toileting Hygiene (QC): 5 Shower/Bathe Self (QC): 5 Upper Body Dressing (QC): 5 Lower Body Dressing (QC): 5 On/Off Footwear (QC): 5 Additional Goals: 1-Demonstrate ADL Tasks, 2-Verbalize Understanding, 3- ImproveStrength/[place] 1=Demonstrate adherence to instructed precautions during ADL tasks. 2=Patient will verbalize/demonstrate understanding of assistive devices/modifications for ADL. 3=Patient will improve strength/tolerance for activity to enable patient to perform ADL's. OT Education/Plan Discharge Recommendations Plan/Recommendations: Continue POC Treatment Plan/Plan of Care Patient would benefit from OT for education, treatment and training to promote independence in ADL's, mobility, safety and/or upper extremity function for ADL's. Plan of Care: ADL Retraining, Functional Mobility, Group Exercise/Act as Ind, UE Funct Exercise/Act Treatment Duration: Sep 18, 2019 Frequency: At least 5 of 7 days/Wk (IRF) Estimated Hrs Per Day: 1.5 hours per day Agreement: Yes Rehab Potential: Fair Time/GCodes Start Time: 09:30 Stop Time: 11:00 Total Time Billed (hr/min): 90 Billed Treatment Time 1 visit, ADLx6(90minutes) PIO MORTENSEN OT Sep 05, 2019 11:15
--- NOTE | 2019-09-05 12:06 | Physical Therapy Daily Note ---
PT Daily Note-Current Subjective Pt sitting in W/C upon arrival. Pt reports 10/10 pain in R hip. Pain meds have been given and cannot be given at this time. Pt agrees to limited PT. Pain Numeric Pain Scale: 10-Worst Possible Pain Location: Right Location Body Site: Hip Pain Description: Ache, Sharp Comment: Pain 10/10 with movement, describing as stabbing with movement Mental Status Patient Orientation: Person, Place, Situation Transfers SCALE: Activities may be completed with or without assistive devices. 8-Qdyzjuzdrl-wwodooj completes the activity by him/herself with no assistance from a helper. 5-Set-up or Clean-up Assistance-helper sets up or cleans up; patient completes activity. [place] assists only prior to or following the activity. 4-Supervision or Touching Assistance-helper provides verbal cues and/or touching/steadying and/or contact guard assistance as patient completes activity. Assistance may be provided throughout the activity or intermittently. 3-Partial/Moderate Assistance-helper does LESS THAN HALF the effort. [place] lifts, holds or supports trunk or limbs, but provides less than half the effort. 2-Substantial/Maximal Assistance-helper does MORE THAN HALF the effort. [place] lifts or holds trunk or limbs and provides more than half the effort. 6-Vmdizdsgc-kqnbmq does ALL the effort. Patient does none of the effort to complete the activity. Or, the assistance of 2 or more helpers is required for the patient to complete the activity. If activity was not attempted, code reason: 7-Patient Refused. 9-Not Applicable-not attempted and the patient did not perform the activity before the current illness, exacerbation or injury. 10-Not Attempted due to Environmental Limitations-(lack of equipment, weather restraints, etc.). 88-Not Attempted due to Medical Conditions or Safety Concerns. Sit to Lying (QC): 3 Lying to Sitting/Side of Bed(Q: 3 Sit to Stand (QC): 3 Chair/Cth-tp-Yresr Xfer(QC): 3 Weight Bearing Right Lower Extremity: Right Weight Bearing/Tolerated Left Lower Extremity: Left Full Weight Bearing Gait Training Does the Patient Walk?: No and Walking Goal IS indicated Wheelchair Training Does the Pt Use a Wheelchair?: Yes Type of Wheelchair: Manual Exercises Supine Ex: Ankle pumps, Quad Set, Hip abd/add Supine Reps: 15 Treatments HONEY EXTRACTOR asks pt to transfer to recliner but pt declines citing pain too unbearable at this time and asks to return to bed to stretch hip. HONEY EXTRACTOR assists pt in transferring to Supine in bed. Pt is able to complete limited Supine EX w/in pain tolerance. Pt takes RB as needed and HONEY EXTRACTOR discusses pursed lip breathing technique. HONEY EXTRACTOR applies WMH to pt's R hip & Nurse is notified of pain. Pt has all needs met, call light in hand. Assessment Current Status: Fair Progress Pt is limited by pain at this time. Pt reports pain with movement. PT Short Term Goals Short Term Goals Time Frame: Sep 11, 2019 Roll Left & Right: 3 Sit to lyin Lying to sitting on side of be: 3 Sit to stand: 3 Chair/ymg-ny-oiobj transfer: 3 Walk 10 feet: 3 PT Assisted Goals Recovery Assistant Goals PT Recovery Assistant Goals Time Frame: Sep 25, 2019 Roll Left & Right (QC): 6 Sit to Lying (QC): 6 Lying-Sitting on Side/Bed(QC): 6 Sit to Stand (QC): 4 Chair/Lad-lm-[place]jpuh Xfer(QC): 4 Toilet Transfer (QC): 4 Car Transfer (QC): 3 Walk 10 feet (QC): 3 Walk 50ft with 2 Turns (QC): 3 Walk 150 ft (QC): 3 Walking 10ft on Uneven Surface: 3 1 Step (curb) (QC): 3 4 Steps (QC): 3 PT Plan Problem List Problem List: Activity Tolerance, Functional Strength, Safety, Balance, Gait, Transfer, Bed Mobility Treatment/Plan Treatment Plan: Continue Plan of Care Treatment Plan: Bed Mobility, Education, Functional Activity Dexter, Functional Strength, Group Therapy, Gait, Safety, Therapeutic Exercise, Transfers Treatment Duration: Sep 25, 2019 Frequency: At least 5 of 7 days/Wk (IRF) Estimated Hrs Per Day: 1.5 hours per day Patient and/or Family Agrees t: Yes Safety Risks/Education Patient Education: Transfer Techniques, Reviewed Precautions, Correct Positioning, Safety Issues Teaching Recipient: Patient Teaching Methods: Discussion Response to Teaching: Verbalize Understanding Time/GCodes Time In: 1100 Time Out: 1200 Total Billed Treatment Time: 60 Total Billed Treatment 1, FA x2 (30m), EX (20m) & WCH (10m) ALKA VERDUGO PTA Sep 05, 2019 12:06
--- NOTE | 2019-09-05 14:40 | NUR ---
Weekly Team Conference Met with patient to discuss weekly team conference and team's recommendation to reevaluate progress next week. Patient is in agreement with this plan. Patient confirmed that, prior to this hospitalization, she was independent with functional mobility and ADLs, and did not use any adaptive equipment. Patient appears motivated to participate with therapies so that she is able to return home and to be as independent as possible. Continue plan of care.
--- NOTE | 2019-09-05 14:55 | Physical Therapy Daily Note ---
PT Daily Note-Current Subjective Pt asleep Supine in bed upon arrival. Pt agrees to PT for limited Supine EX. Pain Numeric Pain Scale: 8 Location: Right Location Body Site: Hip Pain Description: Ache Mental Status Patient Orientation: Person, Place, Situation Transfers SCALE: Activities may be completed with or without assistive devices. 6-Zjdnwbcdlq-xkxitmu completes the activity by him/herself with no assistance from a helper. 5-Set-up or Clean-up Assistance-helper sets up or cleans up; patient completes activity. [place] assists only prior to or following the activity. 4-Supervision or Touching Assistance-helper provides verbal cues and/or touching/steadying and/or contact guard assistance as patient completes activity. Assistance may be provided throughout the activity or intermittently. 3-Partial/Moderate Assistance-helper does LESS THAN HALF the effort. [place] lifts, holds or supports trunk or limbs, but provides less than half the effort. 2-Substantial/Maximal Assistance-helper does MORE THAN HALF the effort. [place] lifts or holds trunk or limbs and provides more than half the effort. 9-Tsxbefmdv-rwcgjv does ALL the effort. Patient does none of the effort to complete the activity. Or, the assistance of 2 or more helpers is required for the patient to complete the activity. If activity was not attempted, code reason: 7-Patient Refused. 9-Not Applicable-not attempted and the patient did not perform the activity before the current illness, exacerbation or injury. 10-Not Attempted due to Environmental Limitations-(lack of equipment, weather restraints, etc.). 88-Not Attempted due to Medical Conditions or Safety Concerns. Weight Bearing Right Lower Extremity: Right Weight Bearing/Tolerated Left Lower Extremity: Left Full Weight Bearing Exercises Supine Ex: Ankle pumps, Quad Set, Glut sets, Heel Slides, Hip abd/add Supine Reps: 15 Treatments Pt completes Supine EX with several RB as needed due to fatigue and pain. Pt reports increasing pain with AP & AB/ADD. Pt resting and visits with family member after Rx. Pt has all needs met, call light in hand. Assessment Current Status: Fair Progress Pt is limited by drowsiness and pain. PT Short Term Goals Short Term Goals Time Frame: Sep 11, 2019 Roll Left & Right: 3 Sit to lyin Lying to sitting on side of be: 3 Sit to stand: 3 Chair/hjw-ss-vrlqr transfer: 3 Walk 10 feet: 3 PT Jail Goals Retort Kiln Burner Goals PT Retort Kiln Burner Goals Time Frame: Sep 25, 2019 Roll Left & Right (QC): 6 Sit to Lying (QC): 6 Lying-Sitting on Side/Bed(QC): 6 Sit to Stand (QC): 4 Chair/Pch-aj-Efrus Xfer(QC): 4 Toilet Transfer (QC): 4 Car Transfer (QC): 3 Walk 10 feet (QC): 3 Walk 50ft with 2 Turns (QC): 3 Walk 150 ft (QC): 3 Walking 10ft on Uneven Surface: 3 1 Step (curb) (QC): 3 4 Steps (QC): 3 PT Plan Problem List Problem List: Activity Tolerance, Functional Strength, Safety, Balance, Gait, Transfer, Bed Mobility Treatment/Plan Treatment Plan: Continue Plan of Care Treatment Plan: Bed Mobility, Education, Functional Activity [place], Functional Strength, Group Therapy, Gait, Safety, Therapeutic Exercise, Transfers Treatment Duration: Sep 25, 2019 Frequency: At least 5 of 7 days/Wk (IRF) Estimated Hrs Per Day: 1.5 hours per day Patient and/or Family Agrees t: Yes Safety Risks/Education Patient Education: Correct Positioning, Safety Issues Teaching Recipient: Patient Teaching Methods: Discussion Response to Teaching: Verbalize Understanding Time/GCodes Time In: 1345 Time Out: 1415 Total Billed Treatment Time: 30 Total Billed Treatment 1, EX x2 (30m) ALKA VERDUGO CLEANERS Sep 05, 2019 14:55
[2019-09-05] MEDS ORDERED: CHOL5000 PO (15:33)
--- NOTE | 2019-09-05 16:15 | NUR ---
"RD ASSESSMENT PMHx: GERD; diverticulosis; pancreatitis; Paget's disease PT INTERACTION: Pt was awake and pleasant during nutrition assessment. Pt states current appetite is poor and has been this way for months. Pt sates following a regular diet at home, but avoids nuts and seeds d/t diverticulosis. Pt states no recent issues with chewing/swallowing food. Pt states no recent issues with n/v/c/d at this time, and that her last BM was 09/05. Pt states recent wt loss, but unsure of amount/timeframe. Note unable to determine recent wt hx, per chart review. ABNORMAL NUTRITION-RELATED LAB VALUES LOW: HIGH: BUN 25; glu 149 Est. kcal needs: 1578-9650 kcal | 25-30 kcal/kg Est. Pro needs: 69-83 g Pro | 1.0-1.2 g Pro/kg PES STATEMENT: Inadequate oral intake (NI-2.1) related to loss of appetite as evidenced by pt interview | avg PO intake 18% x2meal INTERVENTION: Continue with current diet order of Regular diet. Add Ensure Enlive (chocolate) to meals TID, for increased kcal intake. Provides 350 kcal and 13 g Pro per serving. Will continue to follow and reassess as pt needs and status change. MONITOR/EVALUATE: PO Intake; Plan of Care; Hydration Status; Weight Status; Lab Values Meggan Oroan, , RD, LD"
--- NOTE | 2019-09-05 17:00 | NUR ---
NAPPED AT FREQUENT INTERVALS TODAY. UP TO COMMODE WITH ASST. OF 2 NURSES AND VOIDED. NO INCONTINENCY TODAY. HAS BEEN FATIGUED TODAY.
[2019-09-05 18:00] VITALS: BP 120/71
[2019-09-05] MEDS: MELATONIN 3 MG TABLET PO PRN (20:01)
[2019-09-06] MEDS: HYDROcodone/APAP 5 MG/325 MG (LORTAB) TAB PO PRN ×3 (02:42→18:17)
[2019-09-06] MEDS: LEVOTHYROXINE 88 MCG (LEVOTHORID) TAB PO SCH (05:28)
[2019-09-06 05:40] VITALS: BP 128/71
[2019-09-06] MEDS: RIVAROXABAN 10 MG TABLET (XARELTO) PO SCH (08:28)
[2019-09-06] MEDS: DOCUSATE SODIUM 100 MG (COLACE) CAP PO SCH ×2 (08:28→19:25)
[2019-09-06] MEDS: SENNA W/DOCUSATE (SENOKOT S) TABLET PO SCH ×2 (08:28→19:25)
[2019-09-06] MEDS: VITAMIN D3 5,000 UNITS (CHOLECALCIFEROL ) CAPSULE PO SCH (08:28)
[2019-09-06] MEDS: POLYETHYLENE GLYCOL 17 GM (MIRALAX) PACK PO SCH ×2 (08:35→19:26)
--- NOTE | 2019-09-06 08:44 | Individualized Plan of Care ---
Individualized Plan of Care Rehab Nursing IPOC Order Admission Date Sep 04, 2019 at 15:30 Current Orders Orders Admission Order(Inpt,Obs,Sdc) (09/04/19 13:07) Vital Signs: Per Unit Policy ( 08,16,00 (09/04/19 13:07) Tapan Andres 09,21 (09/04/19 13:07) Sequential Compression Device Q4H (09/04/19 13:07) Brick Chimney Builder-Inpt Rehab Con (09/04/19 13:07) Rehab Nursing Orders-Ipoc (09/04/19 13:07) Physical Therapy Rehab Orders (09/04/19 13:07) Occupational Therapy Rehab Ord (09/04/19 13:07) Speech Therapy Rehab Orders (09/04/19 13:07) Cbc With Automated Diff (09/05/19 06:00) Comprehensive Metabolic Panel (09/05/19 06:00) Intake & Output 06,14,22 (09/04/19 13:07) Precautions (Aru) (09/04/19 13:07) Weekly Weight WEEK (09/04/19 13:07) Rehab-Intensity Of Therapy (09/04/19 13:07) Initiate Admission Nursing Pro .admission (09/04/19 13:07) Acetaminophen Tablet (Tylenol Tablet) (09/04/19 13:15) Alprazolam Tablet (Xanax Tablet) (09/04/19 13:15) Calcium Carbonate Chew Tablet (Antacid C (09/04/19 13:15) Diphenhydramine Tablet (Benadryl Tablet) (09/04/19 13:15) Docusate Sodium Capsule (Colace Capsule) (09/04/19 21:00) Docusate Sodium Capsule (Colace Capsule) (09/04/19 13:15) Bisacodyl Suppository (Dulcolax Supposit (09/04/19 13:15) Lactulose Oral Solution (Enulose Oral So (09/04/19 13:15) Na Phos/Na Biphos Enema (Fleet Enema Choco (09/04/19 13:15) Guaifenesin/Codeine Syrup (Robitussin Ac (09/04/19 13:15) Loperamide Tablet (Imodium Tablet) (09/04/19 13:15) Melatonin Tablet (Melatonin Tablet) (09/04/19 13:15) Polyethylene Glycol Powder Pkt (Miralax (09/04/19 21:00) Ondansetron Oral Dissolve Tab (Zofran (09/04/19 13:15) Senna S Tablet (Senokot S Tablet) (09/04/19 21:00) Initiate Admission Nursing Pro .admission (09/04/19 13:07) Nursing Communication (Order) (09/04/19 15:33) Follow-Up Appointment D/C (09/04/19 15:42) Admission Arrival Bed Request (09/04/19 15:55) Ensure Enlive (09/05/19 Lunch) Nursing Communication (Order) (09/04/19 16:24) Follow-Up Appointment (09/04/19 16:29) Ambulate 08,12,20 (09/04/19 16:33) Sequential Compression Device Q4H (09/04/19 16:33) Dvt/Vte Risk - Notifiy Physici Q4H (09/04/19 16:33) General/Regular (09/04/19 Dinner) Cholecalciferol Capsule/Tablet (Vitamin (09/05/19 09:00) Rx-Hydrocodone/Apap 5-325 Mg (Rx-Vicodin (09/04/19 17:45) Levothyroxine Tablet (Synthroid Tablet) (09/05/19 06:30) Rivaroxaban Tablet (Xarelto Tablet) (09/05/19 09:00) Hydrocodone/Apap 5/325 Tablet (Lortab 5 (09/04/19 18:00) Incentive Spirometry (Nursing) Q2H (09/04/19 18:26) Patient Visit (09/05/19 ) Pt Eval Moderate Complexity (09/05/19 ) Functional Activities, Ea 15 (09/05/19 ) General/Regular (09/05/19 Lunch) Patient Visit (09/05/19 ) Functional Activities, Ea 15 (09/05/19 ) Exercise Therap, Ea 15 Min (09/05/19 ) Wheelchair Mgmt/Propulsn 15min (09/05/19 ) Hydrocodone/Apap 5/325 Tablet (Lortab 5 (09/05/19 18:00) (Nf) Cholecalciferol (Vitamin D3) (Vitam (09/06/19 09:00) Patient Visit (09/05/19 ) Speech Sound Lang Comp (09/05/19 ) Ensure Enlive (09/05/19 Dinner) Patient Visit (09/04/19 ) Pt Eval Moderate Complexity (09/04/19 ) Dietary Consult (09/06/19 11:53) Patient Visit (09/06/19 ) Treat. Speech/Lang/Voice (09/06/19 ) Patient Visit (09/06/19 ) Exercise Therap, Ea 15 Min (09/06/19 ) Functional Activities, Ea 15 (09/06/19 ) Patient Visit (09/07/19 ) Gait Training, Ea 15 Min (09/07/19 ) Exercise Therap, Ea 15 Min (09/07/19 ) Functional Activities, Ea 15 (09/07/19 ) Patient Visit (09/07/19 ) Treat. Speech/Lang/Voice (09/07/19 ) Rehab Nursing Orders: Ongoing Assess. of Cognitive Status, Ongoing Assess. of Function Status, Bladder Management, Bladder Scan, Bladder Training, Bowel Management, Bowel Training, Disease Management & Educaiton, DVT Prophylaxis, Fall Prevention, Fluid/Electrolyte/Nutrition Mgmt, Infection Prevention, M edication Management & Education, Management of Risks & Complications, Management of Skin Intergrity, Nutrition Management, Pain Management, Patient/Family Support, Safety Management Intensity of Therapy to be met Patient to be seen: 15 hrs over 7 cons. days PT IPOC Problem List: Activity Tolerance, Functional Strength, Safety, Balance, Gait, Transfer, Bed Mobility Treatment Plan: Continue Plan of Care Bed Mobility, Education, Functional Activity [place]ter, Functional Strength, Group Therapy, Gait, Safety, Therapeutic Exercise, Transfers Treatment Duration: Sep 25, 2019 Frequency: At least 5 of 7 days/Wk (IRF) Estimated Hrs Per Day: 1.5 hours per day OT IPOC Problems: Decreased Activ Tolerance, Dependent Transfers, Impaired Bed Mobility, Impaired Funct Balance, Impaired I ADL's, Impaired Self-Care Skills OT Treatment, Training and Edu: Yes Plan of Care: ADL Retraining, Functional Mobility, Group Exercise/Act as Ind, UE Funct Exercise/Act Treatment Duration: Sep 18, 2019 Frequency: At least 5 of 7 days/Wk (IRF) Estimated Hrs Per Day: 1.[address] IPOC Speech Therapy Treatment Plan: Continue Plan of Care Treatment Duration: Sep 14, 2019 Frequency: 5 times per week Estimated Hrs Per Day: .5 hour per day Brick Chimney Builder/Case Mgmt Brick Chimney Builder/Case Managemen: Discharge Planning Dietitian/Financial Services Associate Dietitian/Financial Services Associate to monitor nutritional status and make changes and/or recommendations as needed and work with speech pathology on dietary upgrades as the occur. 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 with narcotic bowel and lethargy due to narcotics will need close monitoring for decompensation Medical Issues: Bowel/Bladder Function, DVT Prophylaxis, Falls Precautions, Fluid/Electrolyte/Nutrition Balance, Infection Protection, Pain Management Brief Synthesis of Preadmission Screen, Post-Admission Evaluation, and Therapy Evaluations: PT and OT we'll focus on regaining balance and fall risk prevention and amb ulation with walker in addition to strengthening and working through pain with healing process Medical Prognosis: Good Anticipated Length of Stay: 10 days PAUL PACHECO DO Sep 06, 2019 08:44
--- NOTE | 2019-09-06 08:44 | PM&R Progress Note ---
Subjective HPI/CC On Admission Date Seen by Provider: Sep 06, 2019 Time Seen by Provider: 09:00 Subjective/Events-last exam Pt doing much better Cutting the Hydrocodone in half has worked a lot better controlling the pain in addition decreasing the sedative factor Bowels moved just a little bit yesterday so will likely need some more medications today Overall feels much better Checked meds and labs Conferred with RN Reviewed therapy notes Review of Systems General: Fatigue Gastrointestinal: Constipation Musculoskeletal: leg pain Neurological: Confusion Objective Exam Vital Signs Vital Signs Date Time Temp Pulse Resp B/P (MAP) Pulse Ox O2 Delivery O2 Flow Rate FiO2 09/08/19 05:08 36.8 73 18 146/76 (99) 92 Room Air Capillary Refill : Less Than 3 SecondsLess Than 3 Seconds General Appearance: No Apparent Distress, WD/WN, Chronically ill, Thin HEENT: PERRL/EOMI, Normal ENT Inspection, Pharynx Normal Neck: Full Range of Motion, Normal Inspection, Non Tender, Supple, Carotid Bruit Respiratory: Chest Non Tender, Lungs Clear, Normal Breath Sounds, No Accessory Muscle Use, No Respiratory Distress Cardiovascular: Regular Rate, Rhythm, No Edema, No Gallop, No JVD, No Murmur, Normal Peripheral Pulses Gastrointestinal: Normal Bowel Sounds, No Organomegaly, No Pulsatile Mass, Non Tender, Soft Back: Normal Inspection, Decreased Range of Motion Extremity: Normal Capillary Refill, Normal Inspection, Normal Range of Motion (right leg limited range of motion due to pain), Non Tender, No Calf Tenderness, No Pedal Edema Neurologic/Psychiatric: Alert, Oriented x3, No Motor/Sensory Deficits, Normal Mood/Affect, dish network installer II-XII Norm as Tested, Other (limited range of motion from right leg pain) Skin: Normal Color, Warm/Dry Lymphatic: No Adenopathy Results/Procedures Lab Patient resulted labs reviewed. FIM Transfers Therapy Code Descriptions/Definitions Functional [place] Measure: 0=Not Assessed/NA 4=Minimal Assistance 1=Total Assistance 5=Supervision or Setup 2=Maximal Assistance 6=Modified [place] 3=Moderate Assistance 7=Complete IndependenceSCALE: Activities may be completed with or without assistive devices. 9-Fsmnmwrsyq-pjvwmub completes the activity by him/herself with no assistance from a helper. 5-Set-up or Clean-up Assistance-helper sets up or cleans up; patient completes activity. [place] assists only prior to or following the activity. 4-Supervision or Touching Assistance-helper provides verbal cues and/or touching/steadying and/or contact guard assistance as patient completes activity. Assistance may be provided throughout the activity or intermittently. 3-Partial/Moderate Assistance-helper does LESS THAN HALF the effort. [place] lifts, holds or supports trunk or limbs, but provides less than half the effort. 2-Substantial/Maximal Assistance-helper does MORE THAN HALF the effort. [place] lifts or holds trunk or limbs and provides more than half the effort. 6-Vvzqawgde-cmezkn does ALL the effort. Patient does none of the effort to complete the activity. Or, the assistance of 2 or more helpers is required for the patient to complete the activity. If activity was not attempted, code reason: 7-Patient Refused. 9-Not Applicable-not attempted and the patient did not perform the activity before the current illness, exacerbation or injury. 10-Not Attempted due to Environmental Limitations-(lack of equipment, weather restraints, etc.). 88-Not Attempted due to Medical Conditions or Safety Concerns. Roll Left to Right (QC): 2 Sit to Lying (QC): 3 Sit to Stand (QC): 3 Chair/Fmx-db-Kmctx Xfer(QC): 3 Gait Training Does the Patient Walk?: No and Walking Goal IS indicated Gait Assistive Device: FWW Wheelchair Training Does the Pt Use a Wheelchair?: Yes Wheel 50 ft with 2 turns (QC): 1 Wheel 150 ft (QC): 1 Type of Wheelchair: Manual Balance Picking up an Object (QC): 88 ADL-Treatment Oral Hygiene (QC): 5 Shower/Bathe Self (QC): 3 Upper Body Dressing (QC): 3 Lower Body Dressing (QC): 2 On/Off Footwear (QC): 1 Toileting Hygiene (QC): 2 Toilet Transfer (QC): 3 Assessment/Plan Assessment and Plan Assess & Plan/Chief Complaint Assessment: 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 Severe constipation narcotic induced Hypothyroidism Subtle confusion Fall risk Advanced age Plan: Pain meds but decreased Monitor blood pressure Maintain bowel regimen Inpatient rehabilitation protocol 12/03 (1) Closed right hip fracture Status: Acute (2) Hypothyroidism (3) Paget's disease (4) Osteoporosis (5) Falls (6) DVT prophylaxis (7) Anemia (8) Diverticulosis (9) Constipation (10) Incontinence (11) Advanced age PAUL PACHECO DO Sep 06, 2019 08:44
[2019-09-06] MEDS ORDERED: NON-FORMULARY MEDICATION 1 EA EA (Cholecalciferol (Vitamin D3) (Vitamin D3) 5,000 UNIT) PO SCH (09:00)
--- NOTE | 2019-09-06 10:08 | Occupational Ther Daily Note ---
OT Current Status-Daily Note Subjective Pt. reports 10/10 pain in right hip with movement. Pt. has had pain medication. Appearance Pt. in bed. Alert and agreeable to work with OT. Mental Status/Objective Patient Orientation: Person, Place, Time, Situation ADL-Treatment Therapy Code Descriptions/Definitions Functional [place] Measure: 0=Not Assessed/NA 4=Minimal Assistance 1=Total Assistance 5=Supervision or Setup 2=Maximal Assistance 6=Modified [place] 3=Moderate Assistance 7=Complete IndependenceSCALE: Activities may be completed with or without assistive devices. 9-Vhlsyawntw-wneqmyc completes the activity by him/herself with no assistance from a helper. 5-Set-up or Clean-up Assistance-helper sets up or cleans up; patient completes activity. [place] assists only prior to or following the activity. 4-Supervision or Touching Assistance-helper provides verbal cues and/or touching/steadying and/or contact guard assistance as patient completes activity. Assistance may be provided throughout the activity or intermittently. 3-Partial/Moderate Assistance-helper does LESS THAN HALF the effort. [place] lifts, holds or supports trunk or limbs, but provides less than half the effort. 2-Substantial/Maximal Assistance-helper does MORE THAN HALF the effort. [place] lifts or holds trunk or limbs and provides more than half the effort. 3-Nlfeleucf-zsehky does ALL the effort. Patient does none of the effort to complete the activity. Or, the assistance of 2 or more helpers is required for the patient to complete the activity. If activity was not attempted, code reason: 7-Patient Refused. 9-Not Applicable-not attempted and the patient did not perform the activity before the current illness, exacerbation or injury. 10-Not Attempted due to Environmental Limitations-(lack of equipment, weather restraints, etc.). 88-Not Attempted due to Medical Conditions or Safety Concerns. Shower/Bathe Self (QC): 3 Upper Body Dressing (QC): 4 Lower Body Dressing (QC): 2 On/Off Footwear: 2 Toileting Hygiene (QC): 3 (Mod assist in stance ) Toilet Transfer (QC): 3 (Mod assist) Other Treatment Pt. declines showering, but agrees to sponge bathe. Requests to use BSC first. Does not feel she can ambulate into bathroom. Transferred supine-sit with max assist. Stood with mod assist and pivoted to BSC. Increased time needed. Pt. upset that she has not urinated in brief. OT educates her that it is a good thing that she is continent. Able to urinate in BSC. Stood with mod assist. Able to cleanse self. Pivoted to wheelchair and set up with bath. Overall, pt. requires mod assist to bathe self using LH sponge. Mod assist in stance for balance while pt. cleanses autumn area. Max assist to don brief, pants, and slipper socks. Pt. states that she is hurting, and would like to go back to bed. Mod assist to transfer to bed, and max assist for sit-supine. Max x 2 for bed mobility. All needs met. Education OT Patient Education: Correct positioning, Exercise program, Modified ADL techniques, Progress toward Goal/Update tx plan, Purpose of tx/functional activities, Reviewed precautions, Rehab process, Transfer techniques, Use of adapted equipment Teaching Recipient: Patient Teaching Methods: Demonstration, Discussion Response to Teaching: Verbalize Understanding, Return Demonstration OT Short Term Goals Short Term Goals Time Frame: Sep 11, 2019 Eatin Oral hygiene: 5 Toileting hygiene: 4 Shower/bathe self: 3 Upper body dressin Lower body dressin Putting on/taking off footwear: 3 OT Cdl Driver Goals Cdl Driver Goals Time Frame: Sep 18, 2019 Eating (QC): 6 Oral Hygiene (QC): 6 Toileting Hygiene (QC): 5 Shower/Bathe Self (QC): 5 Upper Body Dressing (QC): 5 Lower Body Dressing (QC): 5 On/Off Footwear (QC): 5 Additional Goals: 1-Demonstrate ADL Tasks, 2-Verbalize Understanding, 3-ImproveStrength/Dexter 1=Demonstrate adherence to instructed precautions during ADL tasks. 2=Patient will verbalize/demonstrate understanding of assistive devices/modifications for ADL. 3=Patient will improve strength/tolerance for activity to enable patient to perform ADL's. OT Education/Plan Problem List/Assessment Assessment: Decreased Activ Tolerance, Decreased UE Strength, Dependent Transfers, Impaired Bed Mobility, Impaired Funct Balance, Impaired I ADL's, Impaired Self-Care Skills Discharge Recommendations Plan/Recommendations: Continue POC Therapy Discharge Recommendati: Post Acute OT Equpiment Recommendations-D/C: Hip Kit Treatment Plan/Plan of Care Treatment,Training & Education: Yes Patient would benefit from OT for education, treatment and training to promote independence in ADL's, mobility, safety and/or upper extremity function for ADL's. Plan of Care: ADL Retraining, Functional Mobility, Group Exercise/Act as Ind, UE Funct Exercise/Act Treatment Duration: Sep 18, 2019 Frequency: At least 5 of 7 days/Wk (IRF) Estimated Hrs Per Day: 1.5 hours per day Agreement: Yes Rehab Potential: Fair Time/GCodes Start Time: 08:45 Stop Time: 10:00 Total Time Billed (hr/min): 75 Billed Treatment Time 1, ADL x 5 SEAN MORIN OT Sep 06, 2019 10:08
--- NOTE | 2019-09-06 11:56 | NUR ---
Pt states that she has lost about 10# in the last year, has a poor appetite. States that she has to make herself eat, drinks a lot of chocolate Ensure. Cant eat berries w seeds, which she spoke to the sample prep technician about when he brought tray in. Dietary consult placed.
--- NOTE | 2019-09-06 12:03 | Physical Therapy Daily Note ---
PT Daily Note-Current Subjective Pt laying Supine in bed upon arrival. Pt declines needing to use BSC at this time but agrees to PT. Pain Numeric Pain Scale: 8 Location: Right Location Body Site: Hip Pain Description: Ache, Sharp Comment: Pain is achy until moving then becomes stabbing Mental Status Patient Orientation: Person, Confused, Place Transfers SCALE: Activities may be completed with or without assistive devices. 3-Awssczxdjo-qbeszcu completes the activity by him/herself with no assistance from a helper. 5-Set-up or Clean-up Assistance-helper sets up or cleans up; patient completes activity. [place] assists only prior to or following the activity. 4-Supervision or Touching Assistance-helper provides verbal cues and/or touching/steadying and/or contact guard assistance as patient completes activity. Assistance may be provided throughout the activity or intermittently. 3-Partial/Moderate Assistance-helper does LESS THAN HALF the effort. [place] lifts, holds or supports trunk or limbs, but provides less than half the effort. 2-Substantial/Maximal Assistance-helper does MORE THAN HALF the effort. [place] lifts or holds trunk or limbs and provides more than half the effort. 2-Etvznsrks-trvqjn does ALL the effort. Patient does none of the effort to comp lete the activity. Or, the assistance of 2 or more helpers is required for the patient to complete the activity. If activity was not attempted, code reason: 7-Patient Refused. 9-Not Applicable-not attempted and the patient did not perform the activity before the current illness, exacerbation or injury. 10-Not Attempted due to Environmental Limitations-(lack of equipment, weather restraints, etc.). 88-Not Attempted due to Medical Conditions or Safety Concerns. Weight Bearing Right Lower Extremity: Right Weight Bearing/Tolerated Left Lower Extremity: Left Full Weight Bearing Exercises Supine Ex: Ankle pumps, Quad Set, Glut sets, Straight leg raise, Hip abd/add Supine Reps: 15 Treatments Pt reports pain and Nurse is notified. Pt completes Supine EX w/RB as needed for pain. Pt asks for lotion for feet and MEDICAL RECORDS FIELD TECHNICIAN assists with applying to B LE. Pt resting at end of Rx. Nurse giving pain med. Pt has call light, phone, ice pack and MHP. Assessment Current Status: Fair Progress Pt is motivated to get back to active social life but is confused at times. Pain continues to limit participation w/Therapy. PT Short Term Goals Short Term Goals Time Frame: Sep 11, 2019 Roll Left & Right: 3 Sit to lyin Lying to sitting on side of be: 3 Sit to stand: 3 Chair/jbp-km-nbnwf transfer: 3 Walk 10 feet: 3 PT Personal Care Service Provider Goals Retirement Goals PT Personal Care Service Provider Goals Time Frame: Sep 25, 2019 Roll Left & Right (QC): 6 Sit to Lying (QC): 6 Lying-Sitting on Side/Bed(QC): 6 Sit to Stand (QC): 4 Chair/Sbp-el-Hjwjq Xfer(QC): 4 Toilet Transfer (QC): 4 Car Transfer (QC): 3 Walk 10 feet (QC): 3 Walk 50ft with 2 Turns (QC): 3 Walk 150 ft (QC): 3 Walking 10ft on Uneven Surface: 3 1 Step (curb) (QC): 3 4 Steps (QC): 3 PT Plan Problem List Problem List: Activity Tolerance, Functional Strength, Safety, Balance, Gait, Transfer, Bed Mobility, ROM Treatment/Plan Treatment Plan: Continue Plan of Care Treatment Plan: Bed Mobility, Education, Functional Activity Dexter, Functional Strength, Group Therapy, Gait, Safety, Therapeutic Exercise, Transfers Treatment Duration: Sep 25, 2019 Frequency: At least 5 of 7 days/Wk (IRF) Estimated Hrs Per Day: 1.5 hours per day Patient and/or Family Agrees t: Yes Safety Risks/Education Patient Education: Transfer Techniques, Correct Positioning, Safety Issues Teaching Recipient: Patient Teaching Methods: Discussion Response to Teaching: Reinforcement Needed Time/GCodes Time In: 1045 Time Out: 1130 Total Billed Treatment Time: 45 Total Billed Treatment 1, EX (20m) & FA x2 (25m) ALKA VERDUGO MEDICAL RECORDS FIELD TECHNICIAN Sep 06, 2019 12:03
--- NOTE | 2019-09-06 13:31 | Speech Therapy Daily Note ---
Speech Daily Progress Note Subjective Date Seen by Provider: Sep 06, 2019 Time Seen by Provider: 08:15 Patient was pleasant and cooperative during all therapy tasks. Patient was sitting upright in her bed eating her breakfast during therapy. Objective Patient completed memory tasks of previous education and work history with 90% and above with minimal cues. Assessment Assessment Current Status: Good Progress Treatment Plan Continue Plan of Care Speech Short Term Goals Short Term Goals Short Term Goals 1. Patient will complete memory tasks related to her daily needs with 90% or greater with minimal cues. 2. Patient will complete problem-solving tasks related to her daily needs with 90% or greater with minimal cues. 3. Patient will complete safety awareness tasks related to her daily needs with 90% or greater with minimal cues. Speech Commercial Sales Consultant Goals Commercial Sales Consultant Goals Patient will improve cognitive-communication necessary for safety and daily living tasks with minimal assist. Speech-Plan Patient/Family Goals Patient/Family Goals: Patient reported that she is not the sole caregiver of her sister. Patient reported wanting to return home with her son. 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 Pt/Family Agrees to Plan: Yes Safety Risks/Education Teaching Recipient: Patient Teaching Methods: Demonstration, Discussion Response to Teaching: Verbalize Understanding Education Topics Provided: Importance of nurtritional intake and safety awareness. Time Speech Therapy Time In: 08:15 Speech Therapy Time Out: 08:45 Total Billed Time: 30 Billed Treatment Time 1. DYAN RIDLEY Sep 06, 2019 13:31
--- NOTE | 2019-09-06 14:28 | Physical Therapy Daily Note ---
PT Daily Note-Current Subjective Pt laying Supine in bed visiting with friend upon arrival. Pt agrees to PT. Pain Numeric Pain Scale: 8 Location: Right Location Body Site: Hip Pain Description: Ache, Stabbing, Sharp Comment: Pain is achy w/intermittent sharp/stabbing w/movement Mental Status Patient Orientation: Person, Confused, Place Transfers SCALE: Activities may be completed with or without assistive devices. 8-Wjsobxphnp-eptzjsl completes the activity by him/herself with no assistance from a helper. 5-Set-up or Clean-up Assistance-helper sets up or cleans up; patient completes activity. [place] assists only prior to or following the activity. 4-Supervision or Touching Assistance-helper provides verbal cues and/or touching/steadying and/or contact guard assistance as patient completes activity. Assistance may be provided throughout the activity or intermittently. 3-Partial/Moderate Assistance-helper does LESS THAN HALF the effort. [place] lifts, holds or supports trunk or limbs, but provides less than half the effort. 2-Substantial/Maximal Assistance-helper does MORE THAN HALF the effort. [place] lifts or holds trunk or limbs and provides more than half the effort. 3-Frfnaylxx-cyfmrr does ALL the effort. Patient does none of the effort to complete the activity. Or, the assistance of 2 or more helpers is required for the patient to complete the activity. If activity was not attempted, code reason: 7-Patient Refused. 9-Not Applicable-not attempted and the patient did not perform the activity before the current illness, exacerbation or injury. 10-Not Attempted due to Environmental Limitations-(lack of equipment, weather restraints, etc.). 88-Not Attempted due to Medical Conditions or Safety Concerns. Roll Left & Right (QC): 2 Sit to Lying (QC): 3 Lying to Sitting/Side of Bed(Q: 3 Sit to Stand (QC): 3 Chair/Jzi-pl-Xbqwc Xfer(QC): 3 Toilet Transfer (QC): 3 Weight Bearing Right Lower Extremity: Right Weight Bearing/Tolerated Left Lower Extremity: Left Full Weight Bearing Treatments Pt transfers from Supine to EOB to Standing then slowly completes SPT with VC for sequencing. Pt uses BSC then stands to don brief and pants. CERTIFIED NURSING ASSISTANT INSTRUCTOR assists pt with SPT to EOB then Supine in bed. CERTIFIED NURSING ASSISTANT INSTRUCTOR assists pt with positioning. Pt has ice pack for groin, MHP for R hip and call light and phone in hand. Assessment Current Status: Fair Progress Pt is very anxious with WB and transfers. Pt needs encouragement & VC for sequencing. Pt continues to limit progress. PT Short Term Goals Short Term Goals Time Frame: Sep 11, 2019 Roll Left & Right: 3 Sit to lyin Lying to sitting on side of be: 3 Sit to stand: 3 Chair/bdf-fs-gbzfq transfer: 3 Walk 10 feet: 3 PT Assisted Goals Assisted Goals PT Facing End Trimmer Goals Time Frame: Sep 25, 2019 Roll Left & Right (QC): 6 Sit to Lying (QC): 6 Lying-Sitting on Side/Bed(QC): 6 Sit to Stand (QC): 4 Chair/Swu-zl-Pvoil Xfer(QC): 4 Toilet Transfer (QC): 4 Car Transfer (QC): 3 Walk 10 feet (QC): 3 Walk 50ft with 2 Turns (QC): 3 Walk 150 ft (QC): 3 Walking 10ft on Uneven Surface: 3 1 Step (curb) (QC): 3 4 Steps (QC): 3 PT Plan Problem List Problem List: Activity Tolerance, Functional Strength, Safety, Balance, Gait, Transfer, Bed Mobility, ROM Treatment/Plan Treatment Plan: Continue Plan of Care Treatment Plan: Bed Mobility, Education, Functional Activity Dexter, Functional Strength, Group Therapy, Gait, Safety, Therapeutic Exercise, Transfers Treatment Duration: Sep 25, 2019 Frequency: At least 5 of 7 days/Wk (IRF) Estimated Hrs Per Day: 1.5 hours per day Patient and/or Family Agrees t: Yes Safety Risks/Education Patient Education: Transfer Techniques, Correct Positioning, Safety Issues Teaching Recipient: Patient Teaching Methods: Discussion Response to Teaching: Reinforcement Needed Time/GCodes Time In: 1330 Time Out: 1400 Total Billed Treatment Time: 30 Total Billed Treatment 1, FA x2 (30m) ALKA VERDUGO CERTIFIED NURSING ASSISTANT INSTRUCTOR Sep 06, 2019 14:28
--- NOTE | 2019-09-06 15:49 | NUR ---
CM/SS ADMISSION Patient was admitted to ARU from [facility] status post hemiarthroplasty for right hip fracture. She presented to [facility] 08/31/19 after fall with injury and was transferred to [facility] at that time. Prior to hospitalization, patient indicates she was IADL. She and her son reside together in [place] and she wishes to return home with him when able. DME: Will be explored with patient and family with recommendations to follow from therapy team. PCP: Dr. Usman Mcneil INSURED: Medicare and [facility] Supplement PHARMACY: [facility] Patient experiencing difficulty with pain control, team continues care plan toward pain management relative to influence on movement/weight bearing and participation. CONTACTS: Yeyo Sosa, Son [phone] Tereza Jericho, Friend [phone]
[2019-09-06 15:59] VITALS: BP 144/68
[2019-09-07] MEDS: HYDROcodone/APAP 5 MG/325 MG (LORTAB) TAB PO PRN ×2 (05:26→15:19)
[2019-09-07] MEDS: LEVOTHYROXINE 88 MCG (LEVOTHORID) TAB PO SCH (05:26)
[2019-09-07 05:29] VITALS: BP 136/74
[2019-09-07] MEDS: SENNA W/DOCUSATE (SENOKOT S) TABLET PO SCH ×2 (07:59→20:01)
[2019-09-07] MEDS: POLYETHYLENE GLYCOL 17 GM (MIRALAX) PACK PO SCH ×2 (07:59→20:05)
[2019-09-07] MEDS: DOCUSATE SODIUM 100 MG (COLACE) CAP PO SCH ×2 (07:59→20:01)
[2019-09-07] MEDS: RIVAROXABAN 10 MG TABLET (XARELTO) PO SCH (08:05)
[2019-09-07] MEDS: VITAMIN D3 5,000 UNITS (CHOLECALCIFEROL ) CAPSULE PO SCH (08:05)
--- NOTE | 2019-09-07 09:15 | PM&R Progress Note ---
Subjective HPI/CC On Admission Date Seen by Provider: Sep 07, 2019 Time Seen by Provider: 09:00 Subjective/Events-last exam Bowels are regular. No pain is reported other than the right hip. BP well controlled. Improved status dramatically since admission. Half of a Lortab helps the pain but doesn't cause her to be lethargic. Check meds and labs Conferred with metal bench patternmaker therapy notes Review of Systems General: Fatigue Musculoskeletal: leg pain Neurological: Confusion Objective Exam Vital Signs Vital Signs Date Time Temp Pulse Resp B/P (MAP) Pulse Ox O2 Delivery O2 Flow Rate FiO2 09/08/19 05:08 36.8 73 18 146/76 (99) 92 Room Air Capillary Refill : Less Than 3 SecondsLess Than 3 Seconds General Appearance: No Apparent Distress, WD/WN, Chronically ill, Thin HEENT: PERRL/EOMI, Normal ENT Inspection, Pharynx Normal Neck: Full Range of Motion, Normal Inspection, Non Tender, Supple, Carotid Bruit Respiratory: Chest Non Tender, Lungs Clear, Normal Breath Sounds, No Accessory Muscle Use, No Respiratory Distress Cardiovascular: Regular Rate, Rhythm, No Edema, No Gallop, No JVD, No Murmur, Normal Peripheral Pulses Gastrointestinal: Normal Bowel Sounds, No Organomegaly, No Pulsatile Mass, Non Tender, Soft Back: Normal Inspection, Decreased Range of Motion Extremity: Normal Capillary Refill, Normal Inspection, Normal Range of Motion (right leg limited range of motion due to pain), Non Tender, No Calf Tenderness, No Pedal Edema Neurologic/Psychiatric: Alert, Oriented x3, No Motor/Sensory Deficits, Normal Mood/Affect, chemical reclamation equipment operator II-XII Norm as Tested, Other (limited range of motion from right leg pain) Skin: Normal Color, Warm/Dry Lymphatic: No Adenopathy Results/Procedures Lab Patient resulted labs reviewed. FIM Transfers Therapy Code Descriptions/Definitions Functional [place] Measure: 0=Not Assessed/NA 4=Minimal Assistance 1=Total Assistance 5=Supervision or Setup 2=Maximal Assistance 6=Modified [place] 3=Moderate Assistance 7=Complete IndependenceSCALE: Activities may be completed with or without assistive devices. 2-Itzlzpprab-sivjquo completes the activity by him/herself with no assistance from a helper. 5-Set-up or Clean-up Assistance-helper sets up or cleans up; patient completes activity. [place] assists only prior to or following the activity. 4-Supervision or Touching Assistance-helper provides verbal cues and/or touching/steadying and/or contact guard assistance as patient completes act ivity. Assistance may be provided throughout the activity or intermittently. 3-Partial/Moderate Assistance-helper does LESS THAN HALF the effort. [place] lifts, holds or supports trunk or limbs, but provides less than half the effort. 2-Substantial/Maximal Assistance-helper does MORE THAN HALF the effort. [place] lifts or holds trunk or limbs and provides more than half the effort. 8-Rvgrapzeg-axpmpa does ALL the effort. Patient does none of the effort to complete the activity. Or, the assistance of 2 or more helpers is required for the patient to complete the activity. If activity was not attempted, code reason: 7-Patient Refused. 9-Not Applicable-not attempted and the patient did not perform the activity before the current illness, exacerbation or injury. 10-Not Attempted due to Environmental Limitations-(lack of equipment, weather restraints, etc.). 88-Not Attempted due to Medical Conditions or Safety Concerns. Roll Left to Right (QC): 2 Sit to Lying (QC): 3 Sit to Stand (QC): 3 Chair/Fpv-ki-Nyroj Xfer(QC): 3 Gait Training Does the Patient Walk?: No and Walking Goal IS indicated Gait Assistive Device: FWW Wheelchair Training Does the Pt Use a Wheelchair?: Yes Wheel 50 ft with 2 turns (QC): 1 Wheel 150 ft (QC): 1 Type of Wheelchair: Manual Balance Picking up an Object (QC): 88 ADL-Treatment Oral Hygiene (QC): 5 Shower/Bathe Self (QC): 3 Upper Body Dressing (QC): 4 Lower Body Dressing (QC): 2 On/Off Footwear (QC): 2 Toileting Hygiene (QC): 3 (Mod assist in stance ) Toilet Transfer (QC): 3 (Mod assist) Assessment/Plan Assessment and Plan Assess & Plan/Chief Complaint Assessment: 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 Severe constipation narcotic induced Hypothyroidism Subtle confusion Fall risk Advanced age Plan: Pain meds but decreased Monitor blood pressure Maintain bowel regimen Inpatient rehabilitation protocol 12/03 (1) Closed right hip fracture Status: Acute (2) Hypothyroidism (3) Paget's disease (4) Osteoporosis (5) Falls (6) DVT prophylaxis (7) Anemia (8) Diverticulosis (9) Constipation (10) Incontinence (11) Advanced age (1) Closed right hip fracture Status: Acute (2) Hypothyroidism (3) Paget's disease (4) Osteoporosis (5) Falls (6) DVT prophylaxis (7) Anemia (8) Diverticulosis (9) Constipation (10) Incontinence (11) Advanced age PAUL PACHECO DO Sep 07, 2019 09:15
--- NOTE | 2019-09-07 09:16 | Physical Therapy Daily Note ---
PT Daily Note-Current Subjective Pt. in bed upon arrival. States she is very active at home and in her community and doesnt take naps during the day. Rates pain in her right groin at 6/10 Pain Numeric Pain Scale: 6 Location: Right Location Body Site: Hip Pain Description: Pressure Mental Status Patient Orientation: Normal For Age Transfers SCALE: Activities may be completed with or without assistive devices. 4-Lgzmmznyll-qjuhxzb completes the activity by him/herself with no assistance from a helper. 5-Set-up or Clean-up Assistance-helper sets up or cleans up; patient completes activity. [place] assists only prior to or following the activity. 4-Supervision or Touching Assistance-helper provides verbal cues and/or touching/steadying and/or contact guard assistance as patient completes activity. Assistance may be provided throughout the activity or intermittently. 3-Partial/Moderate Assistance-helper does LESS THAN HALF the effort. [place] lifts, holds or supports trunk or limbs, but provides less than half the effort. 2-Substantial/Maximal Assistance-helper does MORE THAN HALF the effort. [place] lifts or holds trunk or limbs and provides more than half the effort. 9-Kkkeumerk-siohcs does ALL the effort. Patient does none of the effort to complete the activity. Or, the assistance of 2 or more helpers is required for the patient to complete the activity. If activity was not attempted, code reason: 7-Patient Refused. 9-Not Applicable-not attempted and the patient did not perform the activity before the current illness, exacerbation or injury. 10-Not Attempted due to Environmental Limitations-(lack of equipment, weather restraints, etc.). 88-Not Attempted due to Medical Conditions or Safety Concerns. Roll Left & Right (QC): 5 Sit to Lying (QC): 4 Lying to Sitting/Side of Bed(Q: 5 Sit to Stand (QC): 4 Chair/Ujy-rw-Zotox Xfer(QC): 4 needs instruction and cues for sup to sit and safe sit to stand Weight Bearing Right Lower Extremity: Right Weight Bearing/Tolerated Left Lower Extremity: Left Full Weight Bearing Gait Training Does the Patient Walk?: Yes Walk 10 feet (QC): 4 Gait Persons Needed: 1 Gait Assistive Device: FWW 40ft x 4 CGA and instruction for sequence, heavy wt bearing on FWW, decreased step length right Exercises Supine Ex: Ankle pumps, Quad Set, Rolling, Glut sets, Heel Slides, Short Arc Quads, Scooting, Straight leg raise (assisted), Hip abd/add (assisted) Supine Reps: 20 Seated Therapy Exercises: Ankle pumps, Sit to stand, Long arc quads, Hip abd/add Seated Reps: 10 Assessment Current Status: Good Progress PT Short Term Goals Short Term Goals Time Frame: Sep 11, 2019 Roll Left & Right: 3 Sit to lyin Lying to sitting on side of be: 3 Sit to stand: 3 Chair/yrp-kt-ntzrc transfer: 3 Walk 10 feet: 3 PT Snf Goals Qa Automation Architect Goals PT Snf Goals Time Frame: Sep 25, 2019 Roll Left & Right (QC): 6 Sit to Lying (QC): 6 Lying-Sitting on Side/Bed(QC): 6 Sit to Stand (QC): 4 Chair/Mub-jl-Wmjep Xfer(QC): 4 Toilet Transfer (QC): 4 Car Transfer (QC): 3 Walk 10 feet (QC): 3 Walk 50ft with 2 Turns (QC): 3 Walk 150 ft (QC): 3 Walking 10ft on Uneven Surface: 3 1 Step (curb) (QC): 3 4 Steps (QC): 3 PT Plan Treatment/Plan Treatment Plan: Continue Plan of Care Treatment Plan: Bed Mobility, Education, Functional Activity [place], Functional Strength, Group Therapy, Gait, Safety, Therapeutic Exercise, Transfers Treatment Duration: Sep 25, 2019 Frequency: At least 5 of 7 days/Wk (IRF) Estimated Hrs Per Day: 1.5 hours per day Patient and/or Family Agrees t: Yes Safety Risks/Education Patient Education: Gait Training, Transfer Techniques, Correct Positioning, Disease Process, Safety Issues Teaching Recipient: Patient Teaching Methods: Demonstration, Discussion Response to Teaching: Verbalize Understanding, Return Demonstration, Reinforcement Needed Time/GCodes Time In: 800 Time Out: 915 Total Billed Treatment Time: 75 Total Billed Treatment 1,GT25m,EX20m,FA30m MATILDA POLLARD CLOTH COLORS EXAMINER Sep 07, 2019 09:16
--- NOTE | 2019-09-07 11:03 | Occupational Ther Daily Note ---
OT Current Status-Daily Note Subjective Pt. reports pain in right hip with movement, but does not state pain level. Has had pain medication. Appearance Pt. up in chair. Declines shower but agrees to work with OT. Mental Status/Objective Patient Orientation: Person, Place ADL-Treatment Therapy Code Descriptions/Definitions Functional [place] Measure: 0=Not Assessed/NA 4=Minimal Assistance 1=Total Assistance 5=Supervision or Setup 2=Maximal Assistance 6=Modified [place] 3=Moderate Assistance 7=Complete IndependenceSCALE: Activities may be completed with or without assistive devices. 7-Gtlzvfnrhi-mjgvwrp completes the activity by him/herself with no assistance from a helper. 5-Set-up or Clean-up Assistance-helper sets up or cleans up; patient completes activity. [place] assists only prior to or following the activity. 4-Supervision or Touching Assistance-helper provides verbal cues and/or touching/steadying and/or contact guard assistance as patient completes activity. Assistance may be provided throughout the activity or intermittently. 3-Partial/Moderate Assistance-helper does LESS THAN HALF the effort. [place] lifts, holds or supports trunk or limbs, but provides less than half the effort. 2-Substantial/Maximal Assistance-helper does MORE THAN HALF the effort. [place] lifts or holds trunk or limbs and provides more than half the effort. 7-Pmfkaizah-qezlpu does ALL the effort. Patient does none of the effort to complete the activity. Or, the assistance of 2 or more helpers is required for the patient to complete the activity. If activity was not attempted, code reason: 7-Patient Refused. 9-Not Applicable-not attempted and the patient did not perform the activity b efore the current illness, exacerbation or injury. 10-Not Attempted due to Environmental Limitations-(lack of equipment, weather restraints, etc.). 88-Not Attempted due to Medical Conditions or Safety Concerns. Eating (QC): 6 (Per pt.) Oral Hygiene (QC): 5 (Set up at sink from wheelchair level.) Shower/Bathe Self (QC): 7 Upper Body Dressing (QC): 7 (Pt. requested to leave her hospital gown on, as all the shirts she had were too warm.) Lower Body Dressing (QC): 3 (Mod assist and max cues to don underwear and pants using AE. Pt. doffed LE clothing after putting on as she was concerned that they would be too warm and tight.) On/Off Footwear: 3 (Mod assist to doff/don slipper socks using equipment. Pt. declines shoes as she has bandage on right heel, and shoes are tight.) Toileting Hygiene (QC): 3 (Mod assist to cleanse self thoroughly. Pt. is able to cleanse after BM, but unable to do thoroughly.) Toilet Transfer (QC): 3 (Mod assist and cues with walker to pivot/take steps from one surface to another.) Pt. requires multiple rest breaks throughout treatment, and requires increased time and cues. Pt. transferred back to bed after ADLs. Max assist sit-supine. Max cues for re-positioning in bed. All needs met. Education OT Patient Education: Correct positioning, Modified ADL techniques, Progress toward Goal/Update tx plan, Purpose of tx/functional activities, Reviewed precautions, Rehab process, Transfer techniques, Use of adapted equipment Teaching Recipient: Patient Teaching Methods: Demonstration, Discussion Response to Teaching: Verbalize Understanding, Return Demonstration OT Short Term Goals Short Term Goals Time Frame: Sep 11, 2019 Eatin Oral hygiene: 5 Toileting hygiene: 4 Shower/bathe self: 3 Upper body dressin Lower body dressin Putting on/taking off footwear: 3 OT Senior Living Goals Power Shovel Mechanic Goals Time Frame: Sep 18, 2019 Eating (QC): 6 Oral Hygiene (QC): 6 Toileting Hygiene (QC): 5 Shower/Bathe Self (QC): 5 Upper Body Dressing (QC): 5 Lower Body Dressing (QC): 5 On/Off Footwear (QC): 5 Additional Goals: 1-Demonstrate ADL Tasks, 2-Verbalize Understanding, 3-Imp roveStrength/[place] 1=Demonstrate adherence to instructed precautions during ADL tasks. 2=Patient will verbalize/demonstrate understanding of assistive devices/modifications for ADL. 3=Patient will improve strength/tolerance for activity to enable patient to perform ADL's. OT Education/Plan Problem List/Assessment Assessment: Decreased Activ Tolerance, Dependent Transfers, Impaired Funct Balance, Impaired I ADL's, Impaired Self-Care Skills Discharge Recommendations Plan/Recommendations: Continue POC Therapy Discharge Recommendati: Home & Family, Post Acute OT Equpiment Recommendations-D/C: Hip Kit Treatment Plan/Plan of Care Treatment,Training & Education: Yes Patient would benefit from OT for education, treatment and training to promote independence in ADL's, mobility, safety and/or upper extremity function for ADL's. Plan of Care: ADL Retraining, Functional Mobility, Group Exercise/Act as Ind, UE Funct Exercise/Act Treatment Duration: Sep 18, 2019 Frequency: At least 5 of 7 days/Wk (IRF) Estimated Hrs Per Day: 1.5 hours per day Agreement: Yes Rehab Potential: Fair Time/GCodes Start Time: 09:15 Stop Time: 10:30 Total Time Billed (hr/min): 75 Billed Treatment Time 1, ADL x 5 SEAN MORIN OT Sep 07, 2019 11:03
--- NOTE | 2019-09-07 13:28 | NUR ---
"RD ASSESSMENT PMHx: GERD; diverticulosis; pancreatitis; Paget's disease PT INTERACTION: Pt was awake and pleasant during dietary consult for intake. Pt states she has been eating poorly since last assessment. Note avg PO intake of 20% x2d per chart review. Pt states she just eats the fruit and drinks her juice and Ensures. Pt states tolerating Ensures very well. Pt states no recent issues with n/v/c/d. ABNORMAL NUTRITION-RELATED LAB VALUES LOW: Pro 5.6; alb 2.8 HIGH: BUN 25; glu 149 Est. kcal needs: 1690-1178 kcal | 25-30 kcal/kg Est. Pro needs: 69-83 g Pro | 1.0-1.2 g Pro/kg PES STATEMENT: Inadequate oral intake (NI-2.1) related to loss of appetite as evidenced by pt interview | avg PO intake 20% x2d INTERVENTION: Continue with current diet order of Regular diet. Encouraged pt to eat when able. Continue with current supplementation order of Ensure Enlive (vary) with meals TID for icreased kcal intake. Provides 350 kcal and 13 g Pro per serving. Will continue to follow and reassess as pt needs and status change. MONITOR/EVALUATE: PO Intake; Plan of Care; Hydration Status; Weight Status; Lab Values Meggan Orona, MS, RD, LD"
--- NOTE | 2019-09-07 14:35 | Speech Therapy Daily Note ---
Speech Daily Progress Note Subjective Date Seen by Provider: Sep 07, 2019 Time Seen by Provider: 11:15 Patient was alert and cooperative for all therapy tasks. Patient son arrived towards the end of the session and noted concerns with her not eating enough to heal. Patient agreed that having small snacks on her table would benefit her throughout the day and provide a reminder to eat. Objective Patient completed memory tasks with 90% accuracy and safety awareness with 85% accuracy with minimal cues. Assessment Assessment Current Status: Good Progress Treatment Plan Continue Plan of Care Speech Short Term Goals Short Term Goals Short Term Goals 1. Patient will complete memory tasks related to her daily needs with 90% or greater with minimal cues. 2. Patient will complete problem-solving tasks related to her daily needs with 90% or greater with minimal cues. 3. Patient will complete safety awareness tasks related to her daily needs with 90% or greater with minimal cues. Speech Skilled Nursing Goals Skilled Nursing Goals Patient will improve cognitive-communication necessary for safety and daily living tasks with minimal assist. Speech-Plan Patient/Family Goals Patient/Family Goals: Patient reports wanting to return home and to prior level of independence. Treatment Plan Speech Therapy Treatment Plan: Continue Plan of Care Treatment Duration: Sep 14, 2019 Frequency: 5 times per week Estimated Hrs Per Day: .5 hour per day Rehab Potential: Fair Barriers to Learning: Mild cognitive deficits Pt/Family Agrees to Plan: Yes Safety Risks/Education Teaching Recipient: Patient, Family Teaching Methods: Demonstration, Discussion Response to Teaching: Verbalize Understanding Education Topics Provided: Patient was educated on importance of daily nutrition and reminders to eat throughout the day to improve overall rehabilitation. Time Speech Therapy Time In: 11:15 Speech Therapy Time Out: 11:45 Total Billed Time: 30 Billed Treatment Time 1DYAN De Leon Sep 07, 2019 14:35
[2019-09-07 18:00] VITALS: BP 137/59
[2019-09-08] MEDS: LEVOTHYROXINE 88 MCG (LEVOTHORID) TAB PO SCH (04:56)
[2019-09-08] MEDS: HYDROcodone/APAP 5 MG/325 MG (LORTAB) TAB PO PRN ×2 (04:56→10:25)
[2019-09-08 05:08] VITALS: BP 146/76
[2019-09-08] MEDS: SENNA W/DOCUSATE (SENOKOT S) TABLET PO SCH ×2 (09:00→21:35)
[2019-09-08] MEDS: POLYETHYLENE GLYCOL 17 GM (MIRALAX) PACK PO SCH ×2 (09:00→21:35)
--- NOTE | 2019-09-08 09:00 | Occupational Ther Daily Note ---
OT Current Status-Daily Note Subjective Pt in bed upon therapist arrival, and was willing to work with OT this date. Pain Numeric Pain Scale: 5-Moderate Pain Location Body Site: Hip Pain Description: Ache Mental Status/Objective Patient Orientation: Normal For Age ADL-Treatment Therapy Code Descriptions/Definitions Functional [place] Measure: 0=Not Assessed/NA 4=Minimal Assistance 1=Total Assistance 5=Supervision or Setup 2=Maximal Assistance 6=Modified [place] 3=Moderate Assistance 7=Complete IndependenceSCALE: Activities may be completed with or without assistive devices. 2-Sravcdpobn-gauyrhh completes the activity by him/herself with no assistance from a helper. 5-Set-up or Clean-up Assistance-helper sets up or cleans up; patient completes activity. [place] assists only prior to or following the activity. 4-Supervision or Touching Assistance-helper provides verbal cues and/or touching/steadying and/or contact guard assistance as patient completes activity. Assistance may be provided throughout the activity or intermittently. 3-Partial/Moderate Assistance-helper does LESS THAN HALF the effort. [place] lifts, holds or supports trunk or limbs, but provides less than half the effort. 2-Substantial/Maximal Assistance-helper does MORE THAN HALF the effort. [place] lifts or holds trunk or limbs and provides more than half the effort. 8-Nmwlreisl-nkycmb does ALL the effort. Patient does none of the effort to complete the activity. Or, the assistance of 2 or more helpers is required for the patient to complete the activity. If activity was not attempted, code reason: 7-Patient Refused. 9-Not Applicable-not attempted and the patient did not perform the activity before the current illness, exacerbation or injury. 10-Not Attempted due to Environmental Limitations-(lack of equipment, weather restraints, etc.). 88-Not Attempted due to Medical Conditions or Safety Concerns. Upper Body Dressing (QC): 5 Lower Body Dressing (QC): 3 (Melanie with use of chemical process equipment operator to thread pant legs. ) On/Off Footwear: 1 (MaxA for donning socks with use of sock aide. ) Toileting Hygiene (QC): 4 (CGA) Toilet Transfer (QC): 4 (CGA) Education OT Patient Education: Correct positioning, Modified ADL techniques, Purpose of tx/functional activities, Reviewed precautions, Safety issues, Transfer techniques, Use of adapted equipment Teaching Recipient: Patient Teaching Methods: Demonstration, Discussion Response to Teaching: Verbalize Understanding, Return Demonstration, Reinforcement Needed OT Short Term Goals Short Term Goals Time Frame: Sep 11, 2019 Eatin Oral hygiene: 5 Toileting hygiene: 4 Shower/bathe self: 3 Upper body dressin Lower body dressin Putting on/taking off footwear: 3 OT [employer] Lead Goals Citrix Lead Goals Time Frame: Sep 18, 2019 Eating (QC): 6 Oral Hygiene (QC): 6 Toileting Hygiene (QC): 5 Shower/Bathe Self (QC): 5 Upper Body Dressing (QC): 5 Lower Body Dressing (QC): 5 On/Off Footwear (QC): 5 Additional Goals: 1-Demonstrate ADL Tasks, 2-Verbalize Understanding, 3- ImproveStrength/[place] 1=Demonstrate adherence to instructed precautions during ADL tasks. 2=Patient will verbalize/demonstrate understanding of assistive devices /modifications for ADL. 3=Patient will improve strength/tolerance for activity to enable patient to perform ADL's. OT Education/Plan Discharge Recommendations Plan/Recommendations: Continue POC Treatment Plan/Plan of Care Patient would benefit from OT for education, treatment and training to promote independence in ADL's, mobility, safety and/or upper extremity function for ADL's. Plan of Care: ADL Retraining, Functional Mobility, Group Exercise/Act as Ind, UE Funct Exercise/Act Treatment Duration: Sep 18, 2019 Frequency: At least 5 of 7 days/Wk (IRF) Estimated Hrs Per Day: 1.5 hours per day Agreement: Yes Rehab Potential: Fair Time/GCodes Start Time: 08:00 Stop Time: 09:05 Total Time Billed (hr/min): 65 Billed Treatment Time 1, ADL4 LG FORD OT Sep 08, 2019 09:00
[2019-09-08] MEDS: RIVAROXABAN 10 MG TABLET (XARELTO) PO SCH (09:54)
[2019-09-08] MEDS: DOCUSATE SODIUM 100 MG (COLACE) CAP PO SCH ×2 (09:54→21:35)
[2019-09-08] MEDS: VITAMIN D3 5,000 UNITS (CHOLECALCIFEROL ) CAPSULE PO SCH (09:54)
--- NOTE | 2019-09-08 09:54 | Physical Therapy Daily Note ---
PT Daily Note-Current Subjective Pt. up in bedside chair and agrees to therapy. Pain rated 8/10 in the R hip with walking. Pt. declines pain medicine. Mental Status Patient Orientation: Person, Place, Time, Situation Transfers SCALE: Activities may be completed with or without assistive devices. 0-Woevzbprje-iedkpxu completes the activity by him/herself with no assistance from a helper. 5-Set-up or Clean-up Assistance-helper sets up or cleans up; patient completes activity. [place] assists only prior to or following the activity. 4-Supervision or Touching Assistance-helper provides verbal cues and/or touching/steadying and/or contact guard assistance as patient completes activity. Assistance may be provided throughout the activity or intermittently. 3-Partial/Moderate Assistance-helper does LESS THAN HALF the effort. [place] lifts, holds or supports trunk or limbs, but provides less than half the effort. 2-Substantial/Maximal Assistance-helper does MORE THAN HALF the effort. [place] lifts or holds trunk or limbs and provides more than half the effort. 8-Rysdbfmai-eppzdp does ALL the effort. Patient does none of the effort to complete the activity. Or, the assistance of 2 or more helpers is required for the patient to complete the activity. If activity was not attempted, code reason: 7-Patient Refused. 9-Not Applicable-not attempted and the patient did not perform the activity before the current illness, exacerbation or injury. 10-Not Attempted due to Environmental Limitations-(lack of equipment, weather restraints, etc.). 88-Not Attempted due to Medical Conditions or Safety Concerns. Sit to Stand (QC): 3 initially min A with sit to stand but by end of session was mod A to stand up Weight Bearing Right Lower Extremity: Right Weight Bearing/Tolerated Left Lower Extremity: Left Full Weight Bearing Gait Training Does the Patient Walk?: Yes Distance: x 25 ft, x 45 ft, x 20 ft Gait Persons Needed: 1 Gait Assistive Device: FWW several cues needed to keep walker close to self and step sequence Exercises Seated Therapy Exercises: Ankle pumps, Long arc quads, Hamstring Curls, Hip abd/add, Glut set Seated Reps: 20 NuStep Minutes: 7 NuStep Workload: 3 Treatments gait and exercise Assessment Current Status: Good Progress Pt. needed several cues for gait sequence and safety, walker lowered to better utilize UE's during gait. Pt. had increased R groin pain during session, particularly with Nustep. She had increased difficulty with gait at end of session. Nursing notified post session for patient request of pain medication. Pt. up in bedside chair post session with call light and all needs met. PT Short Term Goals Short Term Goals Time Frame: Sep 11, 2019 Roll Left & Right: 3 Sit to lyin Lying to sitting on side of be: 3 Sit to stand: 3 Chair/tqf-gb-lhzcc transfer: 3 Walk 10 feet: 3 PT Photographic Enlarger Operator Goals Senior Living Goals PT Photographic Enlarger Operator Goals Time Frame: Sep 25, 2019 Roll Left & Right (QC): 6 Sit to Lying (QC): 6 Lying-Sitting on Side/Bed(QC): 6 Sit to Stand (QC): 4 Chair/Jve-ne-Lfweo Xfer(QC): 4 Toilet Transfer (QC): 4 Car Transfer (QC): 3 Walk 10 feet (QC): 3 Walk 50ft with 2 Turns (QC): 3 Walk 150 ft (QC): 3 Walking 10ft on Uneven Surface: 3 1 Step (curb) (QC): 3 4 Steps (QC): 3 PT Plan Treatment/Plan Treatment Plan: Continue Plan of Care Treatment Plan: Bed Mobility, Education, Functional Activity Dexter, Functional Strength, Group Therapy, Gait, Safety, Therapeutic Exercise, Transfers Treatment Duration: Sep 25, 2019 Frequency: At least 5 of 7 days/Wk (IRF) Estimated Hrs Per Day: 1.5 hours per day Patient and/or Family Agrees t: Yes Time/GCodes Time In: 920 Time Out: 1020 Total Billed Treatment Time: 60 Total Billed Treatment 1, GT 30', Ex 30' JAZMINE MCMAHON PT Sep 08, 2019 09:54
--- NOTE | 2019-09-08 10:57 | PM&R Progress Note ---
Subjective HPI/CC On Admission Date Seen by Provider: Sep 08, 2019 Time Seen by Provider: 13:00 Subjective/Events-last exam Patient much improved Bowels move this morning Pain is well-controlled Confusion much better Pain comes and goes in waves Checked meds and labs Previously therapy notes Conferred with conference producer of Systems General: Fatigue Musculoskeletal: leg pain Neurological: Weakness Objective Exam Vital Signs Vital Signs Date Time Temp Pulse Resp B/P (MAP) Pulse Ox O2 Delivery O2 Flow Rate FiO2 09/08/19 09:00 Room Air 09/08/19 05:08 36.8 73 18 146/76 (99) 92 Capillary Refill : Less Than 3 SecondsLess Than 3 Seconds General Appearance: No Apparent Distress, WD/WN, Chronically ill, Thin HEENT: PERRL/EOMI, Normal ENT Inspection, Pharynx Normal Neck: Full Range of Motion, Normal Inspection, Non Tender, Supple, Carotid Bruit Respiratory: Chest Non Tender, Lungs Clear, Normal Breath Sounds, No Accessory Muscle Use, No Respiratory Distress Cardiovascular: Regular Rate, Rhythm, No Edema, No Gallop, No JVD, No Murmur, Normal Peripheral Pulses Gastrointestinal: Normal Bowel Sounds, No Organomegaly, No Pulsatile Mass, Non Tender, Soft Back: Normal Inspection, Decreased Range of Motion Extremity: Normal Capillary Refill, Normal Inspection, Normal Range of Motion (right leg limited range of motion due to pain), Non Tender, No Calf Tenderness, No Pedal Edema Neurologic/Psychiatric: Alert, Oriented x3, No Motor/Sensory Deficits, Normal Mood/Affect, web site administrator II-XII Norm as Tested, Other (limited range of motion from right leg pain) Skin: Normal Color, Warm/Dry Lymphatic: No Adenopathy Results/Procedures Lab Patient resulted labs reviewed. FIM Transfers Therapy Code Descriptions/Definitions Functional [place] Measure: 0=Not Assessed/NA 4=Minimal Assistance 1=Total Assistance 5=Supervision or Setup 2=Maximal Assistance 6=Modified [place] 3=Moderate Assistance 7=Complete IndependenceSCALE: Activities may be completed with or without assistive devices. 2-Ftvrkvdjuw-ltohyqs completes the activity by him/herself with no assistance from a helper. 5-Set-up or Clean-up Assistance-helper sets up or cleans up; patient completes activity. [place] assists only prior to or following the activity. 4-Supervision or Touching Assistance-helper provides verbal cues and/or touc breann/steadying and/or contact guard assistance as patient completes activity. Assistance may be provided throughout the activity or intermittently. 3-Partial/Moderate Assistance-helper does LESS THAN HALF the effort. [place] lifts, holds or supports trunk or limbs, but provides less than half the effort. 2-Substantial/Maximal Assistance-helper does MORE THAN HALF the effort. [place] lifts or holds trunk or limbs and provides more than half the effort. 2-Oneujieat-wevhlr does ALL the effort. Patient does none of the effort to complete the activity. Or, the assistance of 2 or more helpers is required for the patient to complete the activity. If activity was not attempted, code reason: 7-Patient Refused. 9-Not Applicable-not attempted and the patient did not perform the activity before the current illness, exacerbation or injury. 10-Not Attempted due to Environmental Limitations-(lack of equipment, weather restraints, etc.). 88-Not Attempted due to Medical Conditions or Safety Concerns. Roll Left to Right (QC): 5 Sit to Lying (QC): 4 Sit to Stand (QC): 4 Chair/Wrh-hf-Ejebj Xfer(QC): 4 Gait Training Does the Patient Walk?: Yes Distance: x 25 ft, x 45 ft Walk 10 feet (QC): 4 Gait Persons Needed: 1 Gait Assistive Device: FWW Wheelchair Training Does the Pt Use a Wheelchair?: Yes Wheel 50 ft with 2 turns (QC): 1 Wheel 150 ft (QC): 1 Type of Wheelchair: Manual Balance Picking up an Object (QC): 88 ADL-Treatment Eating (QC): 6 (Per pt.) Oral Hygiene (QC): 5 (Set up at sink from wheelchair level.) Shower/Bathe Self (QC): 7 Upper Body Dressing (QC): 5 Lower Body Dressing (QC): 3 (Melanie with use of early childhood aide classroom to thread pant legs. ) On/Off Footwear (QC): 1 (MaxA for donning socks with use of sock aide. ) Toileting Hygiene (QC): 4 (CGA) Toilet Transfer (QC): 4 (CGA) Assessment/Plan Assessment and Plan Assess & Plan/Chief Complaint Assessment: 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 Severe constipation narcotic induced Hypothyroidism Subtle confusion Fall risk Advanced age Plan: Pain meds but decreased Monitor blood pressure Maintain bowel regimen Inpatient rehabilitation protocol 12/03 (1) Closed right hip fracture Status: Acute (2) Hypothyroidism (3) Paget's disease (4) Osteoporosis (5) Falls (6) DVT prophylaxis (7) Anemia (8) Diverticulosis (9) Constipation (10) Incontinence (11) Advanced age (1) Closed right hip fracture Status: Acute (2) Hypothyroidism (3) Paget's disease (4) Osteoporosis (5) Falls (6) DVT prophylaxis (7) Anemia (8) Diverticulosis (9) Constipation (10) Incontinence (11) Advanced age (1) Closed right hip fracture Status: Acute (2) Hypothyroidism (3) Paget's disease (4) Osteoporosis (5) Falls (6) DVT prophylaxis (7) Anemia (8) Diverticulosis (9) Constipation (10) Incontinence (11) Advanced age PAUL PACHECO DO Sep 08, 2019 10:57
--- NOTE | 2019-09-08 12:51 | Therapy Group Daily Note ---
Therapy Daily Group Note Patient Education Topic Exercises Exercises LE Seated Exercise (15), Sit to/from Stand (3), ROM (15), UE Exercise (10) Session Ratio (pt:therapist): 4:1 Goal of Session: Education on ARU Expectations, UE/LE Strengthing Goal Met for this Session: Yes Pt Benefit of Group: Increased Functional Strength, Socialization Other/Notes Pt. participated fully in group therapy. She was min A with bed to/from w/c transfer and utilized w/c to move to gym. Pt. socialized freely with other group participants. She needed assist with R LE exercises, unable to complete hip flex on R. Pt. was min A with sit to stand x 3. Pt. returned to bedside chair post session, lunch in place and all needs met. Start Time: 11:35 Stop Time: 12:35 Total Billed Treatment Time: 60 Total Billed Treatment 1, GRP 60' JAZMINE MCMAHON PT Sep 08, 2019 12:51
[2019-09-08 18:00] VITALS: BP 131/64
[2019-09-09] MEDS: HYDROcodone/APAP 5 MG/325 MG (LORTAB) TAB PO PRN ×2 (02:12→23:52)
[2019-09-09 05:18] VITALS: BP 129/72
[2019-09-09] MEDS: LEVOTHYROXINE 88 MCG (LEVOTHORID) TAB PO SCH (06:28)
[2019-09-09] MEDS: SENNA W/DOCUSATE (SENOKOT S) TABLET PO SCH ×2 (08:33→20:53)
[2019-09-09] MEDS: POLYETHYLENE GLYCOL 17 GM (MIRALAX) PACK PO SCH ×2 (08:33→21:01)
[2019-09-09] MEDS: RIVAROXABAN 10 MG TABLET (XARELTO) PO SCH (08:33)
[2019-09-09] MEDS: DOCUSATE SODIUM 100 MG (COLACE) CAP PO SCH ×2 (08:33→20:53)
[2019-09-09] MEDS: VITAMIN D3 5,000 UNITS (CHOLECALCIFEROL ) CAPSULE PO SCH (08:33)
--- NOTE | 2019-09-09 12:28 | PM&R Progress Note ---
Subjective HPI/CC On Admission Date Seen by Provider: Sep 09, 2019 Time Seen by Provider: 12:00 Subjective/Events-last exam Patient much improved Bowels moved this morning and now more regular with that issue Pain is well-controlled until she moves Confusion much better Poor appetite gives rise to poor prognosis overall but this is a chronic issue per patient Getting OOB with walker much better Checked meds and labs Previously therapy notes Conferred with veneer joiner of Systems General: Fatigue, Appetite Musculoskeletal: leg pain Objective Exam Vital Signs Vital Signs Date Time Temp Pulse Resp B/P (MAP) Pulse Ox O2 Delivery O2 Flow Rate FiO2 09/09/19 09:00 Room Air 09/09/19 05:18 36.2 86 18 129/72 (91) 92 Capillary Refill : Less Than 3 SecondsLess Than 3 Seconds General Appearance: No Apparent Distress, WD/WN, Chronically ill, Thin HEENT: PERRL/EOMI, Normal ENT Inspection, Pharynx Normal Neck: Full Range of Motion, Normal Inspection, Non Tender, Supple, Carotid Bruit Respiratory: Chest Non Tender, Lungs Clear, Normal Breath Sounds, No Accessory Muscle Use, No Respiratory Distress Cardiovascular: Regular Rate, Rhythm, No Edema, No Gallop, No JVD, No Murmur, Normal Peripheral Pulses Gastrointestinal: Normal Bowel Sounds, No Organomegaly, No Pulsatile Mass, Non Tender, Soft Back: Normal Inspection, Decreased Range of Motion Extremity: Normal Capillary Refill, Normal Inspection, Normal Range of Motion (right leg limited range of motion due to pain), Non Tender, No Calf Tenderness, No Pedal Edema Neurologic/Psychiatric: Alert, Oriented x3, No Motor/Sensory Deficits, Normal Mood/Affect, procurement professional II-XII Norm as Tested, Other (limited range of motion from right leg pain) Skin: Normal Color, Warm/Dry Lymphatic: No Adenopathy Results/Procedures Lab Patient resulted labs reviewed. FIM Transfers Therapy Code Descriptions/Definitions Functional [place] Measure: 0=Not Assessed/NA 4=Minimal Assistance 1=Total Assistance 5=Supervision or Setup 2=Maximal Assistance 6=Modified [place] 3=Moderate Assistance 7=Complete IndependenceSCALE: Activities may be completed with or without assistive devices. 0-Tcdgodxjgv-deourcf completes the activity by him/herself with no assistance from a helper. 5-Set-up or Clean-up Assistance-helper sets up or cleans up; patient completes activity. [place] assists only prior to or following the activity. 4-Supervision or Touching Assistance-helper provides verbal cues and/or touching/steadying and/or contact guard assistance as patient completes activity. Assistance may be provided throughout the activity or intermittently. 3-Partial/Moderate Assistance-helper does LESS THAN HALF the effort. [place] lifts, holds or supports trunk or limbs, but provides less than half the effort. 2-Substantial/Maximal Assistance-helper does MORE THAN HALF the effort. [place] lifts or holds trunk or limbs and provides more than half the effort. 5-Qczowlrzo-nptzei does ALL the effort. Patient does none of the effort to complete the activity. Or, the assistance of 2 or more helpers is required for the patient to complete the activity. If activity was not attempted, code reason: 7-Patient Refused. 9-Not Applicable-not attempted and the patient did not perform the activity before the current illness, exacerbation or injury. 10-Not Attempted due to Environmental Limitations-(lack of equipment, weather restraints, etc.). 88-Not Attempted due to Medical Conditions or Safety Concerns. Roll Left to Right (QC): 5 Sit to Lying (QC): 4 Sit to Stand (QC): 3 Chair/Qrd-bk-Vprum Xfer(QC): 4 Gait Training Does the Patient Walk?: Yes Distance: x 25 ft, x 45 ft, x 20 ft Walk 10 feet (QC): 4 Gait Persons Needed: 1 Gait Assistive Device: FWW Wheelchair Training Does the Pt Use a Wheelchair?: Yes Wheel 50 ft with 2 turns (QC): 1 Wheel 150 ft (QC): 1 Type of Wheelchair: Manual Balance Picking up an Object (QC): 88 ADL-Treatment Eating (QC): 6 (Per pt.) Oral Hygiene (QC): 5 (Set up at sink from wheelchair level.) Shower/Bathe Self (QC): 7 Upper Body Dressing (QC): 5 Lower Body Dressing (QC): 3 (Melanie with use of grinding machine tender to thread pant legs. ) On/Off Footwear (QC): 1 (MaxA for donning socks with use of sock aide. ) Toileting Hygiene (QC): 4 (CGA) Toilet Transfer (QC): 4 (CGA) Assessment/Plan Assessment and Plan Assess & Plan/Chief Complaint Assessment: 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 Severe constipation narcotic induced Hypothyroidism Subtle confusion Fall risk Advanced age Poor nutritional intake acute on chronic Plan: Pain meds but decreased Monitor blood pressure Maintain bowel regimen Inpatient rehabilitation protocol 12/03 (1) Closed right hip fracture Status: Acute (2) Hypothyroidism (3) Paget's disease (4) Osteoporosis (5) Falls (6) DVT prophylaxis (7) Anemia (8) Diverticulosis (9) Constipation (10) Incontinence (11) Advanced age (1) Closed right hip fracture Status: Acute (2) Hypothyroidism (3) Paget's disease (4) Osteoporosis (5) Falls (6) DVT prophylaxis (7) Anemia (8) Diverticulosis (9) Constipation (10) Incontinence (11) Advanced age (1) Closed right hip fracture Status: Acute (2) Hypothyroidism (3) Paget's disease (4) Osteoporosis (5) Falls (6) DVT prophylaxis (7) Anemia (8) Diverticulosis (9) Constipation (10) Incontinence (11) Advanced age PAUL PACHECO DO Sep 09, 2019 12:28
--- NOTE | 2019-09-09 14:51 | NUR ---
Adela is an 89 yo female who is currently on ARU after a right hip hemiarthroplasty preformed by Dr. Dowling at [facility]. Patient is A&O X4 and does occasionally have pain present in right hip but nothing severe reported. She has been transferring 1:1 min with a walker. She did complete a shower today and was only supervision. Patient does have currently three dressing, right hip (belem intact, no drainage noted, dressing change today 09/09/2019), right elbow (skin tear present, skant serosanguineous drainage, Aelvan dressing change completed today 09/09/2019), right heel is boggy and red (Aelvan dressing change, no bruising noted, heals floated as well). Patient is continent of bowel and bladder, she is however currently wearing a brief d/t not having any clean underwear. No further issues noted with patient. Dr. Vazquez rounded and concerns voiced. This nurse will continue to monitor patient throughout shift.
[2019-09-09 17:20] VITALS: BP 135/59
[2019-09-10] MEDS: LEVOTHYROXINE 88 MCG (LEVOTHORID) TAB PO SCH (04:52)
[2019-09-10] MEDS: HYDROcodone/APAP 5 MG/325 MG (LORTAB) TAB PO PRN ×3 (04:53→18:53)
[2019-09-10 05:00] VITALS: BP 118/70
[2019-09-10 06:11] LABS: BASOPHILS # (AUTO) 0.1 10^3/uL (0.0-0.1); BASOPHILS % (AUTO) 1 % (0-10); EOSINOPHILS # (AUTO) 0.8 10^3/uL (0.0-0.3); EOSINOPHILS % (AUTO) 9 % (0-10); HEMATOCRIT 35 % (35-52); HEMOGLOBIN 11.4 G/DL (11.5-16.0); LYMPHOCYTES # (AUTO) 1.8 X 10^3 (1.0-4.0); LYMPHOCYTES % (AUTO) 21 % (12-44); MEAN CORPUSCULAR HEMOGLOBIN 29 PG (25-34); MEAN CORPUSCULAR HGB CONC 33 G/DL (32-36); MEAN CORPUSCULAR VOLUME 89 FL (80-99); MEAN PLATELET VOLUME 10.3 FL (7.4-10.4); MONOCYTES # (AUTO) 0.8 X 10^3 (0.0-1.0); MONOCYTES % (AUTO) 9 % (0-12); NEUTROPHILS # (AUTO) 5.4 X 10^3 (1.8-7.8); NEUTROPHILS % (AUTO) 61 % (42-75); PLATELET COUNT 248 10^3/uL (130-400); RED CELL DISTRIBUTION WIDTH 13.7 % (10.0-14.5); WHITE BLOOD COUNT 8.9 10^3/uL (4.3-11.0)
[2019-09-10 06:33] LABS: ALBUMIN 2.9 GM/DL (3.2-4.5); BILIRUBIN,TOTAL 0.7 MG/DL (0.1-1.0); CALCIUM 8.8 MG/DL (8.5-10.1); CREATININE SERUM 1.19 MG/DL (0.60-1.30); POTASSIUM 4.2 MMOL/L (3.6-5.0); TOTAL PROTEIN 5.9 GM/DL (6.4-8.2)
[2019-09-10] MEDS: SENNA W/DOCUSATE (SENOKOT S) TABLET PO SCH ×2 (09:02→19:36)
[2019-09-10] MEDS: DOCUSATE SODIUM 100 MG (COLACE) CAP PO SCH ×2 (09:02→19:51)
[2019-09-10] MEDS: POLYETHYLENE GLYCOL 17 GM (MIRALAX) PACK PO SCH ×2 (09:02→19:36)
[2019-09-10] MEDS: RIVAROXABAN 10 MG TABLET (XARELTO) PO SCH (09:02)
[2019-09-10] MEDS: VITAMIN D3 5,000 UNITS (CHOLECALCIFEROL ) CAPSULE PO SCH (09:02)
--- NOTE | 2019-09-10 09:15 | Physical Therapy Daily Note ---
PT Daily Note-Current Subjective Pt. agrees to Rx and states she is sleeping better and feels a little better but is worried about her sister who is in and out of the hospital. Pain Numeric Pain Scale: 5-Moderate Pain Location: Right Location Body Site: Hip Pain Description: Ache Mental Status Patient Orientation: Normal For Age Transfers SCALE: Activities may be completed with or without assistive devices. 7-Dstmnvehkw-ochdrjt completes the activity by him/herself with no assistance from a helper. 5-Set-up or Clean-up Assistance-helper sets up or cleans up; patient completes activity. [place] assists only prior to or following the activity. 4-Supervision or Touching Assistance-helper provides verbal cues and/or touching/steadying and/or contact guard assistance as patient completes a ctivity. Assistance may be provided throughout the activity or intermittently. 3-Partial/Moderate Assistance-helper does LESS THAN HALF the effort. [place] lifts, holds or supports trunk or limbs, but provides less than half the effort. 2-Substantial/Maximal Assistance-helper does MORE THAN HALF the effort. [place] lifts or holds trunk or limbs and provides more than half the effort. 6-Exsldjaqk-efxmnv does ALL the effort. Patient does none of the effort to complete the activity. Or, the assistance of 2 or more helpers is required for the patient to complete the activity. If activity was not attempted, code reason: 7-Patient Refused. 9-Not Applicable-not attempted and the patient did not perform the activity before the current illness, exacerbation or injury. 10-Not Attempted due to Environmental Limitations-(lack of equipment, weather restraints, etc.). 88-Not Attempted due to Medical Conditions or Safety Concerns. Roll Left & Right (QC): 6 Sit to Lying (QC): 6 Lying to Sitting/Side of Bed(Q: 6 Sit to Stand (QC): 5 Chair/Gax-kx-Dkdbh Xfer(QC): 5 Toilet Transfer (QC): 5 educated, demonstrated and practiced sit to stand and stand to sit using proper safe hand placement on arms of chair or on bed. Pt. reaches for FWW to stand etc. states she is fearful of falling if she does not reach for FWW Weight Bearing Right Lower Extremity: Right Weight Bearing/Tolerated Left Lower Extremity: Left Full Weight Bearing Gait Training Does the Patient Walk?: Yes Walk 10 feet (QC): 5 Walk 50 ft with 2 Turns(QC): 5 Walk 150 ft (QC): 5 Gait Persons Needed: 1 Gait Assistive Device: FWW some c/o pain when fatigued. improved gait pattern, more equal step length Stair Training Stair Training: Handrails/: uses walker #of Steps: 4 4 Steps (QC): 4 Stairs: Pattern: Step to fearful of step but did well with instruction and encouragement Exercises Supine Ex: Ankle pumps, Quad Set, Rolling, Glut sets, Heel Slides, Short Arc Quads, Scooting (up in bed using rails bilat), Straight leg raise (assisted), Hip abd/add (assisted) Supine Reps: 12 (x2) Seated Therapy Exercises: Ankle pumps, Sit to stand, Long arc quads, Hip abd/add Seated Reps: 12 NuStep Minutes: 8 NuStep Workload: 3 Treatments toileted and washed hands in bthrm with CGA Assessment Current Status: Good Progress PT Short Term Goals Short Term Goals Time Frame: Sep 11, 2019 Roll Left & Right: 3 Sit to lyin Lying to sitting on side of be: 3 Sit to stand: 3 Chair/ega-kf-oykly transfer: 3 Walk 10 feet: 3 PT Chief Radiologic Technologist Goals Chief Radiologic Technologist Goals PT Chief Radiologic Technologist Goals Time Frame: Sep 25, 2019 Roll Left & Right (QC): 6 Sit to Lying (QC): 6 Lying-Sitting on Side/Bed(QC): 6 Sit to Stand (QC): 4 Chair/Pbp-lq-Vvabj Xfer(QC): 4 Toilet Transfer (QC): 4 Car Transfer (QC): 3 Walk 10 feet (QC): 3 Walk 50ft with 2 Turns (QC): 3 Walk 150 ft (QC): 3 Walking 10ft on Uneven Surface: 3 1 Step (curb) (QC): 3 4 Steps (QC): 3 PT Plan Treatment/Plan Treatment Plan: Continue Plan of Care Treatment Plan: Bed Mobility, Education, Functional Activity Dexter, Functional Strength, Group Therapy, Gait, Safety, Therapeutic Exercise, Transfers Treatment Duration: Sep 25, 2019 Frequency: At least 5 of 7 days/Wk (IRF) Estimated Hrs Per Day: 1.5 hours per day Patient and/or Family Agrees t: Yes Safety Risks/Education Patient Education: Gait Training, Transfer Techniques, Steps, Correct Positioning, Disease Process, Safety Issues Teaching Recipient: Patient Teaching Methods: Demonstration, Discussion Response to Teaching: Verbalize Understanding, Return Demonstration, Reinforcement Needed Time/GCodes Time In: 800 Time Out: 915 Total Billed Treatment Time: 75 Total Billed Treatment 1,EX30m,FA25m,GT20 MATILDA POLLARD BIOMEDICAL SERVICE ENGINEER Sep 10, 2019 09:15
--- NOTE | 2019-09-10 11:00 | PM&R Progress Note ---
Subjective HPI/CC On Admission Date Seen by Provider: Sep 10, 2019 Time Seen by Provider: 09:45 Subjective/Events-last exam Labs are good. Out of bed walking with therapy. Pain is about the same. Bowels are moving after meds taken. Poor appetite is chronic. Checked meds and labs Previously therapy notes Conferred with manager organizational of Systems Musculoskeletal: leg pain Objective Exam Vital Signs Vital Signs Date Time Temp Pulse Resp B/P (MAP) Pulse Ox O2 Delivery O2 Flow Rate FiO2 09/11/19 05:13 36.5 86 18 143/82 (102) 98 Room Air Capillary Refill : Less Than 3 SecondsLess Than 3 Seconds General Appearance: No Apparent Distress, WD/WN, Chronically ill, Thin HEENT: PERRL/EOMI, Normal ENT Inspection, Pharynx Normal Neck: Full Range of Motion, Normal Inspection, Non Tender, Supple, Carotid Bruit Respiratory: Chest Non Tender, Lungs Clear, Normal Breath Sounds, No Accessory Muscle Use, No Respiratory Distress Cardiovascular: Regular Rate, Rhythm, No Edema, No Gallop, No JVD, No Murmur, Normal Peripheral Pulses Gastrointestinal: Normal Bowel Sounds, No Organomegaly, No Pulsatile Mass, Non Tender, Soft Back: Normal Inspection, Decreased Range of Motion Extremity: Normal Capillary Refill, Normal Inspection, Normal Range of Motion (right leg limited range of motion due to pain), Non Tender, No Calf Tenderness, No Pedal Edema Neurologic/Psychiatric: Alert, Oriented x3, No Motor/Sensory Deficits, Normal Mood/Affect, contract loader II-XII Norm as Tested, Other (limited range of motion from right leg pain) Skin: Normal Color, Warm/Dry Lymphatic: No Adenopathy Results/Procedures Lab Patient resulted labs reviewed. FIM Transfers Therapy Code Descriptions/Definitions Functional [place] Measure: 0=Not Assessed/NA 4=Minimal Assistance 1=Total Assistance 5=Supervision or Setup 2=Maximal Assistance 6=Modified [place] 3=Moderate Assistance 7=Complete IndependenceSCALE: Activities may be completed with or without assistive devices. 7-Sfuwlkgeub-htoktue completes the activity by him/herself with no assistance from a helper. 5-Set-up or Clean-up Assistance-helper sets up or cleans up; patient completes activity. [place] assists only prior to or following the activity. 4-Supervision or Touching Assistance-helper provides verbal cues and/or touching/steadying and/or contact guard assistance as patient completes activity. Assistance may be provided throughout the activity or intermittently. 3-Partial/Moderate Assistance-helper does LESS THAN HALF the effort. [place] lifts, holds or supports trunk or limbs, but provides less than half the effort. 2-Substantial/Maximal Assistance-helper does MORE THAN HALF the effort. [place] lifts or holds trunk or limbs and provides more than half the effort. 4-Eelvfrows-iuwavz does ALL the effort. Patient does none of the effort to complete the activity. Or, the assistance of 2 or more helpers is required for the patient to complete the activity. If activity was not attempted, code reason: 7-Patient Refused. 9-Not Applicable-not attempted and the patient did not perform the activity before the current illness, exacerbation or injury. 10-Not Attempted due to Environmental Limitations-(lack of equipment, weather restraints, etc.). 88-Not Attempted due to Medical Conditions or Safety Concerns. Roll Left to Right (QC): 6 Sit to Lying (QC): 6 Sit to Stand (QC): 5 Chair/Hfr-xi-Fdvnx Xfer(QC): 5 Gait Training Does the Patient Walk?: Yes Distance: x 25 ft, x 45 ft, x 20 ft Walk 10 feet (QC): 5 Walk 50 ft with 2 Turns(QC): 5 Walk 150 ft (QC): 5 Gait Persons Needed: 1 Gait Assistive Device: FWW Wheelchair Training Does the Pt Use a Wheelchair?: Yes Wheel 50 ft with 2 turns (QC): 1 Wheel 150 ft (QC): 1 Type of Wheelchair: Manual Stair Training Stair Training: Handrails/: uses walker #of Steps: 4 4 Steps (QC): 4 Stairs: Pattern: Step to Balance Picking up an Object (QC): 88 ADL-Treatment Eating (QC): 6 (Per pt.) Oral Hygiene (QC): 5 (Set up at sink from wheelchair level.) Shower/Bathe Self (QC): 7 Upper Body Dressing (QC): 5 Lower Body Dressing (QC): 3 (Melanie with use of senior principal to thread pant legs. ) On/Off Footwear (QC): 1 (MaxA for donning socks with use of sock aide. ) Toileting Hygiene (QC): 4 (CGA) Toilet Transfer (QC): 4 (CGA) Assessment/Plan Assessment and Plan Assess & Plan/Chief Complaint Assessment: 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 Severe constipation narcotic induced Hypothyroidism Subtle confusion Fall risk Advanced age Poor nutritional intake acute on chronic Plan: Pain meds but decreased Monitor blood pressure Maintain bowel regimen Inpatient rehabilitation protocol 12/03 Doing well but very frail (1) Closed right hip fracture Status: Acute (2) Hypothyroidism (3) Paget's disease (4) Osteoporosis (5) Falls (6) DVT prophylaxis (7) Anemia (8) Diverticulosis (9) Constipation (10) Incontinence (11) Advanced age (1) Closed right hip fracture Status: Acute (2) Hypothyroidism (3) Paget's disease (4) Osteoporosis (5) Falls (6) DVT prophylaxis (7) Anemia (8) Diverticulosis (9) Constipation (10) Incontinence (11) Advanced age (1) Closed right hip fracture Status: Acute (2) Hypothyroidism (3) Paget's disease (4) Osteoporosis (5) Falls (6) DVT prophylaxis (7) Anemia (8) Diverticulosis (9) Constipation (10) Incontinence (11) Advanced age PAUL PACHECO DO Sep 10, 2019 11:00
--- NOTE | 2019-09-10 13:02 | Occupational Ther Daily Note ---
OT Current Status-Daily Note Subjective No pain reported. Pt. states, "I just feel foggy today from the pain meds." Appearance Pt. up in chair. Agrees to sponge bathe but declines showering. Mental Status/Objective Patient Orientation: Person ADL-Treatment Therapy Code Descriptions/Definitions Functional [place] Measure: 0=Not Assessed/NA 4=Minimal Assistance 1=Total Assistance 5=Supervision or Setup 2=Maximal Assistance 6=Modified [place] 3=Moderate Assistance 7=Complete IndependenceSCALE: Activities may be completed with or without assistive devices. 9-Tlzunvwlzs-luofzif completes the activity by him/herself with no assistance from a helper. 5-Set-up or Clean-up Assistance-helper sets up or cleans up; patient completes activity. [place] assists only prior to or following the activity. 4-Supervision or Touching Assistance-helper provides verbal cues and/or touching/steadying and/or contact guard assistance as patient completes activity. Assistance may be provided throughout the activity or intermittently. 3-Partial/Moderate Assistance-helper does LESS THAN HALF the effort. [place] lifts, holds or supports trunk or limbs, but provides less than half the effort. 2-Substantial/Maximal Assistance-helper does MORE THAN HALF the effort. [place] lifts or holds trunk or limbs and provides more than half the effort. 4-Loquygbjt-yheovd does ALL the effort. Patient does none of the effort to complete the activity. Or, the assistance of 2 or more helpers is required for the patient to complete the activity. If activity was not attempted, code reason: 7-Patient Refused. 9-Not Applicable-not attempted and the patient did not perform the activity before the current illness, exacerbation or injury. 10-Not Attempted due to Environmental Limitations-(lack of equipment, weather restraints, etc.). 88-Not Attempted due to Medical Conditions or Safety Concerns. Oral Hygiene (QC): 5 (Set up at wheelchair level at sink.) Shower/Bathe Self (QC): 3 (Min assist to stand and balance while washing autumn area. Cues to remember equipment use.) Upper Body Dressing (QC): 4 (SBA) On/Off Footwear: 3 (Min assist to doff/don slipper socks with AE.) Toileting Hygiene (QC): 4 (CGA in stance) Toilet Transfer (QC): 4 Other Treatment Pt. transferred sit-supine after treatment. Required mod assist and max cues to position self in bed. All needs met. Education OT Patient Education: Correct positioning, Modified ADL techniques, Progress toward Goal/Update tx plan, Purpose of tx/functional activities, Reviewed precautions, Rehab process, Transfer techniques Teaching Recipient: Patient Teaching Methods: Demonstration, Discussion Response to Teaching: Verbalize Understanding, Return Demonstration, Reinforcement Needed OT Short Term Goals Short Term Goals Time Frame: Sep 11, 2019 Eatin Oral hygiene: 5 Toileting hygiene: 4 Shower/bathe self: 3 Upper body dressin Lower body dressin Putting on/taking off footwear: 3 OT Group Home Goals Group Home Goals Time Frame: Sep 18, 2019 Eating (QC): 6 Oral Hygiene (QC): 6 Toileting Hygiene (QC): 5 Shower/Bathe Self (QC): 5 Upper Body Dressing (QC): 5 Lower Body Dressing (QC): 5 On/Off Footwear (QC): 5 Additional Goals: 1-Demonstrate ADL Tasks, 2-Verbalize Understanding, 3- ImproveStrength/[place] 1=Demonstrate adherence to instructed precautions during ADL tasks. 2=Patient will verbalize/demonstrate understanding of assistive devices/modifications for ADL. 3=Patient will improve strength/tolerance for activity to enable patient to perform ADL's. OT Education/Plan Problem List/Assessment Assessment: Decreased Activ Tolerance, Dependent Transfers, Impaired Bed Mobility, Impaired Funct Balance, Impaired I ADL's, Impaired Self-Care Skills Discharge Recommendations Plan/Recommendations: Continue POC Therapy Discharge Recommendati: Post Acute OT Equpiment Recommendations-D/C: Toilet Riser with Rails, Hip Kit Treatment Plan/Plan of Care Treatment,Training & Education: Yes Patient would benefit from OT for education, treatment and training to promote independence in ADL's, mobility, safety and/or upper extremity function for ADL's. Plan of Care: ADL Retraining, Functional Mobility, Group Exercise/Act as Ind, UE Funct Exercise/Act Treatment Duration: Sep 18, 2019 Frequency: At least 5 of 7 days/Wk (IRF) Estimated Hrs Per Day: 1.5 hours per day Agreement: Yes Rehab Potential: Fair Time/GCodes Start Time: 10:15 Stop Time: 11:30 Total Time Billed (hr/min): 75 Billed Treatment Time 1, ADL x 5 SEAN MORIN OT Sep 10, 2019 13:02
--- NOTE | 2019-09-10 15:49 | Speech Therapy Daily Note ---
Speech Daily Progress Note Subjective Date Seen by Provider: Sep 10, 2019 Time Seen by Provider: 00:30 Patient was alert and cooperative for all therapy tasks. Patient was lying in her bed throughout the entire session and reported that she is feeling anxious due to learning that her sister was in the emergency room this weekend. Objective Patient completed memory tasks pertaining to living situation with 85% accuracy with minimal cues. Patient completed safety awareness tasks pertaining to nutritional intake with 90% accuracy. Assessment Assessment Current Status: Good Progress Treatment Plan Continue Plan of Care Speech Short Term Goals Short Term Goals Short Term Goals 1. Patient will complete memory tasks related to her daily needs with 90% or greater with minimal cues. 2. Patient will complete problem-solving tasks related to her daily needs with 90% or greater with minimal cues. 3. Patient will complete safety awareness tasks related to her daily needs with 90% or greater with minimal cues. Speech Half-Way Goals Half-Way Goals Patient will improve cognitive-communication necessary for safety and daily living tasks with minimal assist. Speech-Plan Patient/Family Goals Patient/Family Goals: Patient's discharge plans will be determined by the rehab team and family upon discharge. Treatment Plan Speech Therapy Treatment Plan: Continue Plan of Care Patient is meeting ST goals. Treatment Duration: Sep 14, 2019 Frequency: 5 times per week Estimated Hrs Per Day: .5 hour per day Rehab Potential: Fair Barriers to Learning: Patient has mild cognitive deficits, these appear to be resolving Pt/Family Agrees to Plan: Yes Safety Risks/Education Teaching Recipient: Patient Teaching Methods: Demonstration, Discussion Response to Teaching: Verbalize Understanding, Return Demonstration Education Topics Provided: Continued communication of wants/needs Time Speech Therapy Time In: 14:00 Speech Therapy Time Out: 14:30 Total Billed Time: 30 Billed Treatment Time [address]RE [address] Sep 10, 2019 15:49
[2019-09-10 18:21] VITALS: BP 134/74
[2019-09-11] MEDS: LEVOTHYROXINE 88 MCG (LEVOTHORID) TAB PO SCH (04:08)
[2019-09-11] MEDS: HYDROcodone/APAP 5 MG/325 MG (LORTAB) TAB PO PRN ×3 (04:09→20:51)
[2019-09-11 05:13] VITALS: BP 143/82
[2019-09-11 08:00] VITALS: BP 128/75
--- NOTE | 2019-09-11 08:00 | NUR ---
MUCH IMPROVED COMPARED TO ADMISSION. IS CONCERNED THAT UNABLE TO BE AT HOME ALONE YET AND POTTER OR CERAMIC ARTIST WILL FOLLOW UP ON OTHER OPTIONS. PATIENT STATES TRYING TO EAT NOREEN, BUT CONTINUED POOR APPETITE. STATES DOES DRINK ENSURE WITH EACH MEAL. STATES PAIN IS CONTROLLED.
[2019-09-11] MEDS: VITAMIN D3 5,000 UNITS (CHOLECALCIFEROL ) CAPSULE PO SCH (08:08)
[2019-09-11] MEDS: RIVAROXABAN 10 MG TABLET (XARELTO) PO SCH (08:09)
[2019-09-11] MEDS: DOCUSATE SODIUM 100 MG (COLACE) CAP PO SCH ×2 (08:09→20:49)
[2019-09-11] MEDS: SENNA W/DOCUSATE (SENOKOT S) TABLET PO SCH ×2 (08:09→20:50)
[2019-09-11] MEDS: POLYETHYLENE GLYCOL 17 GM (MIRALAX) PACK PO SCH ×2 (08:10→20:49)
--- NOTE | 2019-09-11 09:28 | Physical Therapy Daily Note ---
PT Daily Note-Current Subjective Pt siting in recliner upon arrival. Pt agrees to PT. Pain Numeric Pain Scale: 6 Location: Right Location Body Site: Hip Pain Description: Ache, Tightness Comment: Pain at 6/10 with WB. Mental Status Patient Orientation: Person, Place, Situation Transfers SCALE: Activities may be completed with or without assistive devices. 6-Dyvrjujenx-aphbbxp completes the activity by him/herself with no assistance from a helper. 5-Set-up or Clean-up Assistance-helper sets up or cleans up; patient completes activity. [place] assists only prior to or following the activity. 4-Supervision or Touching Assistance-helper provides verbal cues and/or touching/steadying and/or contact guard assistance as patient completes activity. Assistance may be provided throughout the activity or intermittently. 3-Partial/Moderate Assistance-helper does LESS THAN HALF the effort. [place] lifts, holds or supports trunk or limbs, but provides less than half the effort. 2-Substantial/Maximal Assistance-helper does MORE THAN HALF the effort. [place] lifts or holds trunk or limbs and provides more than half the effort. 4-Parkviwtd-tuavfi does ALL the effort. Patient does none of the effort to complete the activity. Or, the assistance of 2 or more helpers is required for the patient to complete the activity. If activity was not attempted, code reason: 7-Patient Refused. 9-Not Applicable-not attempted and the patient did not perform the activity before the current illness, exacerbation or injury. 10-Not Attempted due to Environmental Limitations-(lack of equipment, weather restraints, etc.). 88-Not Attempted due to Medical Conditions or Safety Concerns. Sit to Lying (QC): 4 Lying to Sitting/Side of Bed(Q: 4 Sit to Stand (QC): 5 Weight Bearing Right Lower Extremity: Right Weight Bearing/Tolerated Left Lower Extremity: Left Full Weight Bearing Gait Training Does the Patient Walk?: Yes Distance: 150' Walk 10 feet (QC): 5 Walk 50 ft with 2 Turns(QC): 5 Walk 150 ft (QC): 5 Gait Persons Needed: 1 Gait Assistive Device: FWW Pt walks with slow but steady reno. Exercises Supine Ex: Quad Set, Glut sets, Heel Slides, Straight leg raise, Hip abd/add Supine Reps: 15 Seated Therapy Exercises: Ankle pumps, Long arc quads, Hip flexion, Kicking activity Seated Reps: 15 NuStep Minutes: 7 NuStep Workload: 3 Treatments Pt transfers from sitting to standing using FWW then ambulates in hallway. Pt completes Supine & Seated EX then uses NuStep for 7m at WL 3. Pt ambulates in hallway. Pt uses restroom before returning to bed. BUILDING CONSULTANT assists pt with lifting R LE into bed. Pt resting with all needs met, call light next to pt. Assessment Current Status: Good Progress Pt is moving better than this BUILDING CONSULTANT saw last week. Pt is still limited by pain but is is improving. Pt had to discontinue HS due to pain. PT Short Term Goals Short Term Goals Time Frame: Sep 11, 2019 Roll Left & Right: 3 Sit to lyin Lying to sitting on side of be: 3 Sit to stand: 3 Chair/ilo-bn-tpock transfer: 3 Walk 10 feet: 3 PT Cotton Stripper Goals Custodial Goals PT Cotton Stripper Goals Time Frame: Sep 25, 2019 Roll Left & Right (QC): 6 Sit to Lying (QC): 6 Lying-Sitting on Side/Bed(QC): 6 Sit to Stand (QC): 4 Chair/Dee-jo-Lqyov Xfer(QC): 4 Toilet Transfer (QC): 4 Car Transfer (QC): 3 Walk 10 feet (QC): 3 Walk 50ft with 2 Turns (QC): 3 Walk 150 ft (QC): 3 Walking 10ft on Uneven Surface: 3 1 Step (curb) (QC): 3 4 Steps (QC): 3 PT Plan Problem List Problem List: Activity Tolerance, Functional Strength, Gait, Transfer Treatment/Plan Treatment Plan: Continue Plan of Care Treatment Plan: Bed Mobility, Education, Functional Activity [place], Functional Strength, Group Therapy, Gait, Safety, Therapeutic Exercise, Transfers Treatment Duration: Sep 25, 2019 Frequency: At least 5 of 7 days/Wk (IRF) Estimated Hrs Per Day: 1.5 hours per day Patient and/or Family Agrees t: Yes Safety Risks/Education Patient Education: Gait Training, Transfer Techniques, Correct Positioning, Safety Issues Teaching Recipient: Patient Teaching Methods: Discussion Response to Teaching: Verbalize Understanding Time/GCodes Time In: 800 Time Out: 915 Total Billed Treatment Time: 75 Total Billed Treatment 1, GT (20m), EX x2 (30m) & FA x2 (25m) ALKA VERDUGO BUILDING CONSULTANT Sep 11, 2019 09:28
--- NOTE | 2019-09-11 10:03 | Speech Therapy Daily Note ---
Speech Daily Progress Note Subjective Date Seen by Provider: Sep 11, 2019 Time Seen by Provider: 09:15 Patient was alert and cooperative for all therapy activities. Patient was sitting in her chair for the duration of therapy. Patient discussed her current nutritional intake concerns and reported that she has a "mental block" when it comes to eating food. Additionally, patient reports that she has asked the nurse to bring smaller portions of meals, but still received relatively large portions. Objective Patient completed problem-solving and safety tasks pertaining to nutritional intake with 85% accuracy with minimal cues. Treatment Plan Continue Plan of Care Speech Short Term Goals Short Term Goals Short Term Goals 1. Patient will complete memory tasks related to her daily needs with 90% or greater with minimal cues. 2. Patient will complete problem-solving tasks related to her daily needs with 90% or greater with minimal cues. 3. Patient will complete safety awareness tasks related to her daily needs with 90% or greater with minimal cues. Speech Residential Goals Workers Compensation Examiner Goals Patient will improve cognitive-communication necessary for safety and daily living tasks with minimal assist. Speech-Plan Patient/Family Goals Patient/Family Goals: Patient wishes to return home to prior level of independence. Treatment Plan Speech Therapy Treatment Plan: Continue Plan of Care Treatment Duration: Sep 14, 2019 Frequency: 5 times per week Estimated Hrs Per Day: .5 hour per day Rehab Potential: Fair Barriers to Learning: Mild cognitive deficits Pt/Family Agrees to Plan: Yes Safety Risks/Education Teaching Recipient: Patient Teaching Methods: Demonstration, Discussion Response to Teaching: Verbalize Understanding Education Topics Provided: Patient was provided with education regarding a plan to intake more nutrients throughout the day. Time Speech Therapy Time In: 09:15 Speech Therapy Time Out: 09:45 Total Billed Time: 30 Billed Treatment Time [address]RE [address] Sep 11, 2019 10:03
--- NOTE | 2019-09-11 10:31 | PM&R Progress Note ---
Subjective HPI/CC On Admission Date Seen by Provider: Sep 11, 2019 Time Seen by Provider: 09:00 Subjective/Events-last exam Had a BM yesterday Pain is controlled Drinking Ensure with meals Transfers a little better Wants to DC some discharge options hopefully to something like assisted living Poor appetite is chronic. Checked meds and labs Previously therapy notes Conferred with inspector raw quartz of Systems General: Fatigue Musculoskeletal: leg pain Objective Exam Vital Signs Vital Signs Date Time Temp Pulse Resp B/P (MAP) Pulse Ox O2 Delivery O2 Flow Rate FiO2 09/11/19 21:00 93 Room Air 09/11/19 20:51 37.0 09/11/19 18:00 84 18 127/71 (89) Capillary Refill : Less Than 3 SecondsLess Than 3 Seconds General Appearance: No Apparent Distress, WD/WN, Chronically ill, Thin HEENT: PERRL/EOMI, Normal ENT Inspection, Pharynx Normal Neck: Full Range of Motion, Normal Inspection, Non Tender, Supple, Carotid Bruit Respiratory: Chest Non Tender, Lungs Clear, Normal Breath Sounds, No Accessory Muscle Use, No Respiratory Distress Cardiovascular: Regular Rate, Rhythm, No Edema, No Gallop, No JVD, No Murmur, Normal Peripheral Pulses Gastrointestinal: Normal Bowel Sounds, No Organomegaly, No Pulsatile Mass, Non Tender, Soft Back: Normal Inspection, Decreased Range of Motion Extremity: Normal Capillary Refill, Normal Inspection, Normal Range of Motion (right leg limited range of motion due to pain), Non Tender, No Calf Tenderness, No Pedal Edema Neurologic/Psychiatric: Alert, Oriented x3, No Motor/Sensory Deficits, Normal Mood/Affect, outbound sales professional II-XII Norm as Tested, Other (limited range of motion from right leg pain) Skin: Normal Color, Warm/Dry Lymphatic: No Adenopathy Results/Procedures Lab Patient resulted labs reviewed. FIM Transfers Therapy Code Descriptions/Definitions Functional [place] Measure: 0=Not Assessed/NA 4=Minimal Assistance 1=Total Assistance 5=Supervision or Setup 2=Maximal Assistance 6=Modified [place] 3=Moderate Assistance 7=Complete IndependenceSCALE: Activities may be completed with or without assistive devices. 3-Gyejjfwcqu-uvgyegc completes the activity by him/herself with no assistance from a helper. 5-Set-up or Clean-up Assistance-helper sets up or cleans up; patient completes activity. [place] assists only prior to or following the activity. 4-Supervision or Touching Assistance-helper provides verbal cues and/or touching/steadying and/or contact guard assistance as patient completes act ivity. Assistance may be provided throughout the activity or intermittently. 3-Partial/Moderate Assistance-helper does LESS THAN HALF the effort. [place] lifts, holds or supports trunk or limbs, but provides less than half the effort. 2-Substantial/Maximal Assistance-helper does MORE THAN HALF the effort. [place] lifts or holds trunk or limbs and provides more than half the effort. 9-Mlbgcvvrg-skkkyg does ALL the effort. Patient does none of the effort to complete the activity. Or, the assistance of 2 or more helpers is required for the patient to complete the activity. If activity was not attempted, code reason: 7-Patient Refused. 9-Not Applicable-not attempted and the patient did not perform the activity before the current illness, exacerbation or injury. 10-Not Attempted due to Environmental Limitations-(lack of equipment, weather restraints, etc.). 88-Not Attempted due to Medical Conditions or Safety Concerns. Roll Left to Right (QC): 6 Sit to Lying (QC): 6 Sit to Stand (QC): 5 Chair/Hcj-fq-Ipbjq Xfer(QC): 5 Gait Training Does the Patient Walk?: Yes Distance: x 25 ft, x 45 ft, x 20 ft Walk 10 feet (QC): 5 Walk 50 ft with 2 Turns(QC): 5 Walk 150 ft (QC): 5 Gait Persons Needed: 1 Gait Assistive Device: FWW Wheelchair Training Does the Pt Use a Wheelchair?: Yes Wheel 50 ft with 2 turns (QC): 1 Wheel 150 ft (QC): 1 Type of Wheelchair: Manual Stair Training Stair Training: Handrails/: uses walker #of Steps: 4 4 Steps (QC): 4 Stairs: Pattern: Step to Balance Picking up an Object (QC): 88 ADL-Treatment Eating (QC): 6 (Per pt.) Oral Hygiene (QC): 5 (Set up at wheelchair level at sink.) Shower/Bathe Self (QC): 3 (Min assist to stand and balance while washing autumn area. Cues to remember equipment use.) Upper Body Dressing (QC): 4 (SBA) Lower Body Dressing (QC): 3 (Melanie with use of die sinker apprentice to thread pant legs. ) On/Off Footwear (QC): 3 (Min assist to doff/don slipper socks with AE.) Toileting Hygiene (QC): 4 (CGA in stance) Toilet Transfer (QC): 4 Assessment/Plan Assessment and Plan Assess & Plan/Chief Complaint Assessment: 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 Severe constipation narcotic induced Hypothyroidism Subtle confusion Fall risk Advanced age Poor nutritional intake acute on chronic Plan: Pain meds but decreased Monitor blood pressure Maintain bowel regimen Inpatient rehabilitation protocol 12/03 Doing well but very frail Likely will need AL or SNF (1) Closed right hip fracture Status: Acute (2) Hypothyroidism (3) Paget's disease (4) Osteoporosis (5) Falls (6) DVT prophylaxis (7) Anemia (8) Diverticulosis (9) Constipation (10) Incontinence (11) Advanced age (1) Closed right hip fracture Status: Acute (2) Hypothyroidism (3) Paget's disease (4) Osteoporosis (5) Falls (6) DVT prophylaxis (7) Anemia (8) Diverticulosis (9) Constipation (10) Incontinence (11) Advanced age (1) Closed right hip fracture Status: Acute (2) Hypothyroidism (3) Paget's disease (4) Osteoporosis (5) Falls (6) DVT prophylaxis (7) Anemia (8) Diverticulosis (9) Constipation (10) Incontinence (11) Advanced age PAUL PACHECO DO Sep 11, 2019 10:31
--- NOTE | 2019-09-11 12:02 | Occupational Ther Daily Note ---
OT Current Status-Daily Note Subjective Pt. reports pain in right knee and hip, but does not provide pain level. Nursing notified. Appearance Pt. up in chair. Agrees to work with OT. Mental Status/Objective Patient Orientation: Person, Place ADL-Treatment Therapy Code Descriptions/Definitions Functional [place] Measure: 0=Not Assessed/NA 4=Minimal Assistance 1=Total Assistance 5=Supervision or Setup 2=Maximal Assistance 6=Modified [place] 3=Moderate Assistance 7=Complete IndependenceSCALE: Activities may be completed with or without assistive devices. 9-Seqcvdizxp-qlbnnxf completes the activity by him/herself with no assistance from a helper. 5-Set-up or Clean-up Assistance-helper sets up or cleans up; patient completes activity. [place] assists only prior to or following the activity. 4-Supervision or Touching Assistance-helper provides verbal cues and/or touching/steadying and/or contact guard assistance as patient completes activity. Assistance may be provided throughout the activity or intermittently. 3-Partial/Moderate Assistance-helper does LESS THAN HALF the effort. [place] lifts, holds or supports trunk or limbs, but provides less than half the effort. 2-Substantial/Maximal Assistance-helper does MORE THAN HALF the effort. [place] lifts or holds trunk or limbs and provides more than half the effort. 7-Ofsqgremb-ynmgdx does ALL the effort. Patient does none of the effort to complete the activity. Or, the assistance of 2 or more helpers is required for the patient to complete the activity. If activity was not attempted, code reason: 7-Patient Refused. 9-Not Applicable-not attempted and the patient did not perform the activity before the current illness, exacerbation or injury. 10-Not Attempted due to Environmental Limitations-(lack of equipment, weather restraints, etc.). 88-Not Attempted due to Medical Conditions or Safety Concerns. Pt. declines bathing, dressing. Stands from chair in room with min assist, and ambulates with walker to wheelchair. Pt. encouraged to self propel wheelchair for continued independence. Min assist required and pt. propelled to therapy gym. Worked on proper technique for sit-stand at parallel bar, with cues to scoot forward, nose over toes, and to push up from chair and gain balance. Pt. requires cues each time. Sit-stand performed x 2. Pt. able to stand approximately 1-2 minutes each time, but states that it hurts to stand on right LE. Pt. completes 12 minutes on arm bike at min resistance to work on overall endurance. One rest break required and pt. encouraged to continue after substantial break. Pt. donned 1 lb. wrist weights after this task and completed bilateral reaching with pegs to increase overall endurance and strength. Pt. becomes distracted frequently, and requires cues to continue with the task. OT and pt. also completed "olga" trivia during this, to address processing and memory. Pt. verbalizes that she lived in [place] years, and attended many [employer] shows, thus interested in this topic. Pt. states during this task that she feels "foggy" and "can't think." Self propels back to room and stands with min assist using walker. Transferred to bed and max assist provided to transfer to bed. All needs met. Education OT Patient Education: Correct positioning, Modified ADL techniques, Progress toward Goal/Update tx plan, Purpose of tx/functional activities, Reviewed precautions, Rehab process, Transfer techniques Teaching Recipient: Patient Teaching Methods: Demonstration, Discussion Response to Teaching: Verbalize Understanding, Return Demonstration, Reinforcement Needed OT Short Term Goals Short Term Goals Time Frame: Sep 11, 2019 Eatin Oral hygiene: 5 Toileting hygiene: 4 Shower/bathe self: 3 Upper body dressin Lower body dressin Putting on/taking off footwear: 3 OT Residential Goals Microsoft Office Instructor Goals Time Frame: Sep 18, 2019 Eating (QC): 6 Oral Hygiene (QC): 6 Toileting Hygiene (QC): 5 Shower/Bathe Self (QC): 5 Upper Body Dressing (QC): 5 Lower Body Dressing (QC): 5 On/Off Footwear (QC): 5 Additional Goals: 1-Demonstrate ADL Tasks, 2-Verbalize Understanding, 3- ImproveStrength/[place] 1=Demonstrate adherence to instructed precautions during ADL tasks. 2=Patient will verbalize/demonstrate understanding of assistive devices/modifications for ADL. 3=Patient will improve strength/tolerance for activity to enable patient to perform ADL's. OT Education/Plan Problem List/Assessment Assessment: Decreased Activ Tolerance, Decreased UE Strength, Dependent Transfers, Impaired Bed Mobility, Impaired Cognition, Impaired Funct Balance, Impaired I ADL's, Impaired Self-Care Skills Discharge Recommendations Plan/Recommendations: Continue POC Therapy Discharge Recommendati: Post Acute OT Equpiment Recommendations-D/C: Hip Kit Treatment Plan/Plan of Care Treatment,Training & Education: Yes Patient would benefit from OT for education, treatment and training to promote independence in ADL's, mobility, safety and/or upper extremity function for ADL's. Plan of Care: ADL Retraining, Functional Mobility, Group Exercise/Act as Ind, UE Funct Exercise/Act Treatment Duration: Sep 18, 2019 Frequency: At least 5 of 7 days/Wk (IRF) Estimated Hrs Per Day: 1.5 hours per day Agreement: Yes Rehab Potential: Fair Time/GCodes Start Time: 10:00 Stop Time: 11:15 Total Time Billed (hr/min): 75 Billed Treatment Time 1, Ex x 15minutes, FA x 60minutes SEAN MORIN OT Sep 11, 2019 12:02
--- NOTE | 2019-09-11 13:59 | NUR ---
CM/SS CONCURRENT NOTE Visited with patient to explore her progress and options for post hospital care. She has expressed concern about being home alone while her son is at work or on outings. Patient continues to express she has pain, staff continue to assess and monitor. Discussed [facility] facilities vs assisted living respite options. Patient and her son reside in [place], she is very familiar with [facility]. Her sister and spouse had considered getting a duplex there but have not yet committed. [facility] has a respite room available at this time, $135 daily first 7 days with 7 day minimum, then $125 per day thereafter. [facility] has transitional assisted living rooms, $95 per day first 30 days with an increase 31+ days. Patient is insured Medicare and [employer], she would likely qualify for skilled services for a rehab to home stay. Patient and screen writer agreed to resume discussion after the weekly team conference tomorrow so that a target discharge can be factored in. Will contact patient's son with overall update and to include him in decision making.
--- NOTE | 2019-09-11 14:00 | NUR ---
DUE TO SOME CONCERN YESTERDAY THAT PATIENT'S LEGS WERE DIFFERENT LENGTH, THIS NURSE AND PHYSICAL THERAPISTS STEPHANIE AND ALKA CHECKED ON PATIENT. IN AGREEMENT THAT SCOLIOSIS CAUSED RIGHT LEG TO BE A LITTLE LONGER, OTHERWISE NO CONCERNS ON HIP.
[2019-09-11 18:00] VITALS: BP 127/71
[2019-09-11] MEDS: MELATONIN 3 MG TABLET PO PRN (20:50)
[2019-09-12 05:44] VITALS: BP 116/66
[2019-09-12] MEDS: LEVOTHYROXINE 88 MCG (LEVOTHORID) TAB PO SCH (05:46)
[2019-09-12] MEDS: HYDROcodone/APAP 5 MG/325 MG (LORTAB) TAB PO PRN ×2 (05:47→22:45)
[2019-09-12] MEDS: SENNA W/DOCUSATE (SENOKOT S) TABLET PO SCH ×2 (09:21→20:07)
[2019-09-12] MEDS: DOCUSATE SODIUM 100 MG (COLACE) CAP PO SCH ×2 (09:21→20:07)
[2019-09-12] MEDS: RIVAROXABAN 10 MG TABLET (XARELTO) PO SCH (09:21)
[2019-09-12] MEDS: POLYETHYLENE GLYCOL 17 GM (MIRALAX) PACK PO SCH ×2 (09:21→20:07)
[2019-09-12] MEDS: VITAMIN D3 5,000 UNITS (CHOLECALCIFEROL ) CAPSULE PO SCH (09:22)
--- NOTE | 2019-09-12 09:25 | Progress Note - Hospitalist ---
Subjective HPI/CC On Admission Date Seen by Provider: Sep 12, 2019 Time Seen by Provider: 09:00 Objective Exam Vital Signs Vital Signs Date Time Temp Pulse Resp B/P (MAP) Pulse Ox O2 Delivery O2 Flow Rate FiO2 09/12/19 08:10 Room Air 09/12/19 06:31 36.6 09/12/19 05:44 75 18 116/66 (83) 94 Capillary Refill : Less Than 3 SecondsLess Than 3 Seconds Results/Procedures Lab Patient resulted labs reviewed. Assessment/Plan Assessment and Plan Assess & Plan/Chief Complaint Assessment: 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 Severe constipation narcotic induced Hypothyroidism Subtle confusion Fall risk Advanced age Poor nutritional intake acute on chronic Plan: Pain meds but decreased Monitor blood pressure Maintain bowel regimen Inpatient rehabilitation protocol 12/03 Doing well but very frail Likely will need AL or SNF (1) Closed right hip fracture Status: Acute (2) Hypothyroidism (3) Paget's disease (4) Osteoporosis (5) Falls (6) DVT prophylaxis (7) Anemia (8) Diverticulosis (9) Constipation (10) Incontinence (11) Advanced age (1) Closed right hip fracture Status: Acute (2) Hypothyroidism (3) Paget's disease (4) Osteoporosis (5) Falls (6) DVT prophylaxis (7) Anemia (8) Diverticulosis (9) Constipation (10) Incontinence (11) Advanced age Diagnosis/Problems Diagnosis/Problems (1) Closed right hip fracture Status: Acute (2) Hypothyroidism (3) Paget's disease (4) Osteoporosis (5) Falls (6) DVT prophylaxis (7) Anemia (8) Diverticulosis (9) Constipation (10) Incontinence (11) Advanced age Clinical Quality Measures DVT/VTE Risk/Contraindication: Risk Factor Score Per Nursin RFS Level Per Nursing on Admit: 4+=Very High PAUL PACHECO DO Sep 12, 2019 09:25
--- NOTE | 2019-09-12 09:26 | PM&R Progress Note ---
Subjective HPI/CC On Admission Date Seen by Provider: Sep 12, 2019 Time Seen by Provider: 09:00 Subjective/Events-last exam Pt exploring options, maybe assisted living. Wants to avoid fdc placement. Pain is pretty well controlled. Had a rough night last night due to pain but was given a pain pill and that did help. Poor appetite. Working on fall risk prevention. Poor appetite is chronic. Checked meds and labs Previously therapy notes Conferred with instrument designer of Systems Musculoskeletal: leg pain Objective Exam Vital Signs Vital Signs Date Time Temp Pulse Resp B/P (MAP) Pulse Ox O2 Delivery O2 Flow Rate FiO2 09/12/19 18:00 37.2 89 18 128/72 (90) 97 Room Air Capillary Refill : Less Than 3 SecondsLess Than 3 Seconds General Appearance: No Apparent Distress, WD/WN, Chronically ill, Thin HEENT: PERRL/EOMI, Normal ENT Inspection, Pharynx Normal Neck: Full Range of Motion, Normal Inspection, Non Tender, Supple, Carotid Bruit Respiratory: Chest Non Tender, Lungs Clear, Normal Breath Sounds, No Accessory Muscle Use, No Respiratory Distress Cardiovascular: Regular Rate, Rhythm, No Edema, No Gallop, No JVD, No Murmur, Normal Peripheral Pulses Gastrointestinal: Normal Bowel Sounds, No Organomegaly, No Pulsatile Mass, Non Tender, Soft Back: Normal Inspection, Decreased Range of Motion Extremity: Normal Capillary Refill, Normal Inspection, Normal Range of Motion (right leg limited range of motion due to pain), Non Tender, No Calf Tenderness, No Pedal Edema Neurologic/Psychiatric: Alert, Oriented x3, No Motor/Sensory Deficits, Normal Mood/Affect, visor installer II-XII Norm as Tested, Other (limited range of motion from right leg pain) Skin: Normal Color, Warm/Dry Lymphatic: No Adenopathy Results/Procedures Lab Patient resulted labs reviewed. FIM Transfers Therapy Code Descriptions/Definitions Functional [place] Measure: 0=Not Assessed/NA 4=Minimal Assistance 1=Total Assistance 5=Supervision or Setup 2=Maximal Assistance 6=Modified [place] 3=Moderate Assistance 7=Complete IndependenceSCALE: Activities may be completed with or without assistive devices. 7-Kocbqlmaxx-ceihfiq completes the activity by him/herself with no assistance from a helper. 5-Set-up or Clean-up Assistance-helper sets up or cleans up; patient completes activity. [place] assists only prior to or following the activity. 4-Supervision or Touching Assistance-helper provides verbal cues and/or touching/steadying and/or contact guard assistance as patient completes activity. Assistance may be provided throughout the activity or intermittently. 3-Partial/Moderate Assistance-helper does LESS THAN HALF the effort. [place] lifts, holds or supports trunk or limbs, but provides less than half the effort. 2-Substantial/Maximal Assistance-helper does MORE THAN HALF the effort. [place] lifts or holds trunk or limbs and provides more than half the effort. 6-Yxtampwvl-yuiare does ALL the effort. Patient does none of the effort to complete the activity. Or, the assistance of 2 or more helpers is required for the patient to complete the activity. If activity was not attempted, code reason: 7-Patient Refused. 9-Not Applicable-not attempted and the patient did not perform the activity before the current illness, exacerbation or injury. 10-Not Attempted due to Environmental Limitations-(lack of equipment, weather restraints, etc.). 88-Not Attempted due to Medical Conditions or Safety Concerns. Roll Left to Right (QC): 6 Sit to Lying (QC): 4 Sit to Stand (QC): 5 Chair/Iic-kx-Qhfbm Xfer(QC): 5 Gait Training Does the Patient Walk?: Yes Distance: 150' Walk 10 feet (QC): 5 Walk 50 ft with 2 Turns(QC): 5 Walk 150 ft (QC): 5 Gait Persons Needed: 1 Gait Assistive Device: FWW Wheelchair Training Does the Pt Use a Wheelchair?: Yes Wheel 50 ft with 2 turns (QC): 1 Wheel 150 ft (QC): 1 Type of Wheelchair: Manual Stair Training Stair Training: Handrails/: uses walker #of Steps: 4 4 Steps (QC): 4 Stairs: Pattern: Step to Balance Picking up an Object (QC): 88 ADL-Treatment Eating (QC): 6 (Per pt.) Oral Hygiene (QC): 5 (Set up at wheelchair level at sink.) Shower/Bathe Self (QC): 3 (Min assist to stand and balance while washing autumn area. Cues to remember equipment use.) Upper Body Dressing (QC): 4 (SBA) Lower Body Dressing (QC): 3 (Melanie with use of certified vehicle fire investigator to thread pant legs. ) On/Off Footwear (QC): 3 (Min assist to doff/don slipper socks with AE.) Toileting Hygiene (QC): 4 (CGA in stance) Toilet Transfer (QC): 4 Assessment/Plan Assessment and Plan Assess & Plan/Chief Complaint Assessment: 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 Severe constipation narcotic induced Hypothyroidism Subtle confusion Fall risk Advanced age Poor nutritional intake acute on chronic Plan: Pain meds but decreased Monitor blood pressure Maintain bowel regimen Inpatient rehabilitation protocol 12/03 Doing well but very frail Likely will need AL or SNF (1) Closed right hip fracture Status: Acute (2) Hypothyroidism (3) Paget's disease (4) Osteoporosis (5) Falls (6) DVT prophylaxis (7) Anemia (8) Diverticulosis (9) Constipation (10) Incontinence (11) Advanced age (1) Closed right hip fracture Status: Acute (2) Hypothyroidism (3) Paget's disease (4) Osteoporosis (5) Falls (6) DVT prophylaxis (7) Anemia (8) Diverticulosis (9) Constipation (10) Incontinence (11) Advanced age (1) Closed right hip fracture Status: Acute (2) Hypothyroidism (3) Paget's disease (4) Osteoporosis (5) Falls (6) DVT prophylaxis (7) Anemia (8) Diverticulosis (9) Constipation (10) Incontinence (11) Advanced age PAUL PACHECO DO Sep 12, 2019 09:26
--- NOTE | 2019-09-12 12:06 | Physical Therapy Daily Note ---
PT Daily Note-Current Subjective Pt sitting in recliner eating breakfast upon arrival. Pt agrees to PT. Pain Numeric Pain Scale: 4 Location: Right Location Body Site: Hip Pain Description: Ache, Tightness Mental Status Patient Orientation: Person, Place, Situation Transfers SCALE: Activities may be completed with or without assistive devices. 2-Sgdcltwznk-qqrahfo completes the activity by him/herself with no assistance from a helper. 5-Set-up or Clean-up Assistance-helper sets up or cleans up; patient completes activity. [place] assists only prior to or following the activity. 4-Supervision or Touching Assistance-helper provides verbal cues and/or touching/steadying and/or contact guard assistance as patient completes activity. Assistance may be provided throughout the activity or intermittently. 3-Partial/Moderate Assistance-helper does LESS THAN HALF the effort. [place] lifts, holds or supports trunk or limbs, but provides less than half the effort. 2-Substantial/Maximal Assistance-helper does MORE THAN HALF the effort. [place] lifts or holds trunk or limbs and provides more than half the effort. 0-Xqfgpxgyb-wtpanc does ALL the effort. Patient does none of the effort to complete the activity. Or, the assistance of 2 or more helpers is required for the patient to complete the activity. If activity was not attempted, code reason: 7-Patient Refused. 9-Not Applicable-not attempted and the patient did not perform the activity before the current illness, exacerbation or injury. 10-Not Attempted due to Environmental Limitations-(lack of equipment, weather restraints, etc.). 88-Not Attempted due to Medical Conditions or Safety Concerns. Sit to Stand (QC): 5 Weight Bearing Right Lower Extremity: Right Weight Bearing/Tolerated Left Lower Extremity: Left Full Weight Bearing Gait Training Does the Patient Walk?: Yes Distance: 150' Walk 10 feet (QC): 5 Walk 50 ft with 2 Turns(QC): 5 Walk 150 ft (QC): 5 Gait Persons Needed: 1 Gait Assistive Device: FWW Wheelchair Training Does the Pt Use a Wheelchair?: No Exercises Seated Therapy Exercises: Ankle pumps, Long arc quads, Hip flexion, Kicking activity Seated Reps: 15 NuStep Minutes: 15 NuStep Workload: 4 Treatments Pt transfers at [facility] then ambulates using FWW at [facility]. Pt uses NuStep for 15m at 4. Pt discusses pain management and progress with APPRENTICESHIP CONSULTANT as pt returns to room at end of Rx. Pt has all needs met, call light in hand. Assessment Pt is gaining strength and improving with independence of transfers and ambulation. Pt also reports decrease in pain. PT Short Term Goals Short Term Goals Time Frame: Sep 11, 2019 Roll Left & Right: 3 Sit to lyin Lying to sitting on side of be: 3 Sit to stand: 3 Chair/uoi-oc-qfabo transfer: 3 Walk 10 feet: 3 PT Claim Agent Goals Halfway Goals PT Halfway Goals Time Frame: Sep 25, 2019 Roll Left & Right (QC): 6 Sit to Lying (QC): 6 Lying-Sitting on Side/Bed(QC): 6 Sit to Stand (QC): 4 Chair/Rub-zi-Radva Xfer(QC): 4 Toilet Transfer (QC): 4 Car Transfer (QC): 3 Walk 10 feet (QC): 3 Walk 50ft with 2 Turns (QC): 3 Walk 150 ft (QC): 3 Walking 10ft on Uneven Surface: 3 1 Step (curb) (QC): 3 4 Steps (QC): 3 PT Plan Problem List Problem List: Activity Tolerance, Functional Strength Treatment/Plan Treatment Plan: Continue Plan of Care Treatment Plan: Bed Mobility, Education, Functional Activity Dexter, Functional Strength, Group Therapy, Gait, Safety, Therapeutic Exercise, Transfers Treatment Duration: Sep 25, 2019 Frequency: At least 5 of 7 days/Wk (IRF) Estimated Hrs Per Day: 1.5 hours per day Patient and/or Family Agrees t: Yes Safety Risks/Education Patient Education: Gait Training, Transfer Techniques, Correct Positioning, Safety Issues Teaching Recipient: Patient Teaching Methods: Discussion Response to Teaching: Verbalize Understanding Time/GCodes Time In: 815 Time Out: 915 Total Billed Treatment Time: 60 Total Billed Treatment 1, GT (20m), FA (10m) & EX x2 (30m) ALKA VERDUGO APPRENTICESHIP CONSULTANT Sep 12, 2019 12:06
--- NOTE | 2019-09-12 12:09 | Speech Therapy Daily Note ---
Speech Daily Progress Note Subjective Date Seen by Provider: Sep 12, 2019 Time Seen by Provider: 09:15 Patient was alert, content, and cooperative for all therapy tasks. Patient was sitting in her chair for the duration of treatment. Patient reported that she is feeling "pretty good today". Objective Patient completed the [place] Cognitive Assessment (MOCA) and scored 22/30 which is indicative of a mild neurocognitive level of function. It is important to note that patient received a snack schedule that she is to complete 2x daily to promote increased safety awareness and nutritional intake. Treatment Plan Continue Plan of Care Speech Short Term Goals Short Term Goals Short Term Goals 1. Patient will complete memory tasks related to her daily needs with 90% or greater with minimal cues. 2. Patient will complete problem-solving tasks related to her daily needs with 90% or greater with minimal cues. 3. Patient will complete safety awareness tasks related to her daily needs with 90% or greater with minimal cues. Speech Senior Living Goals Senior Living Goals Patient will improve cognitive-communication necessary for safety and daily living tasks with minimal assist. Speech-Plan Patient/Family Goals Patient/Family Goals: Patient reports wanting to return home and previous level of mobility and independence. Treatment Plan Speech Therapy Treatment Plan: Continue Plan of Care Treatment Duration: Sep 14, 2019 Frequency: 5 times per week Estimated Hrs Per Day: .5 hour per day Rehab Potential: Fair Barriers to Learning: Mild cognitive deficits Pt/Family Agrees to Plan: Yes Safety Risks/Education Teaching Recipient: Patient Teaching Methods: Demonstration, Discussion Response to Teaching: Verbalize Understanding Education Topics Provided: Patient recieved a daily snack schedule that she is to follow and complete 2x daily. Patient verbalized that she will try to follow and report any difficulties. Time Speech Therapy Time In: 09:15 Speech Therapy Time Out: 09:45 Total Billed Time: 30 Billed Treatment Time [address]RE [address] Sep 12, 2019 12:09
--- NOTE | 2019-09-12 13:15 | Physical Therapy Daily Note ---
PT Daily Note-Current Subjective Pt. up in chair, agrees to Rx, requests going to bathroom . Pain Location: No Pain Reported Mental Status Patient Orientation: Normal For Age Transfers SCALE: Activities may be completed with or without assistive devices. 9-Ngzakxjzoo-bzoihrx completes the activity by him/herself with no assistance from a helper. 5-Set-up or Clean-up Assistance-helper sets up or cleans up; patient completes activity. [place] assists only prior to or following the activity. 4-Supervision or Touching Assistance-helper provides verbal cues and/or touching/steadying and/or contact guard assistance as patient completes activity. Assistance may be provided throughout the activity or intermittently. 3-Partial/Moderate Assistance-helper does LESS THAN HALF the effort. [place] lifts, holds or supports trunk or limbs, but provides less than half the effort. 2-Substantial/Maximal Assistance-helper does MORE THAN HALF the effort. [place] lifts or holds trunk or limbs and provides more than half the effort. 9-Wytfisshj-tpbcrw does ALL the effort. Patient does none of the effort to complete the activity. Or, the assistance of 2 or more helpers is required for the patient to complete the activity. If activity was not attempted, code reason: 7-Patient Refused. 9-Not Applicable-not attempted and the patient did not perform the activity before the current illness, exacerbation or injury. 10-Not Attempted due to Environmental Limitations-(lack of equipment, weather restraints, etc.). 88-Not Attempted due to Medical Conditions or Safety Concerns. all TRFs SBA to Mod I Weight Bearing Right Lower Extremity: Right Weight Bearing/Tolerated Left Lower Extremity: Left Full Weight Bearing Gait Training Does the Patient Walk?: Yes Gait Assistive Device: FWW [id number], 50 ft x1, SBA, slow with head down posture at times, no LOB Treatments toileted and washed hands all with observation only, good safe habits noticed Assessment Current Status: Good Progress PT Short Term Goals Short Term Goals Time Frame: Sep 11, 2019 Roll Left & Right: 3 Sit to lyin Lying to sitting on side of be: 3 Sit to stand: 3 Chair/tlx-on-zncmj transfer: 3 Walk 10 feet: 3 PT Retirement Goals Chief Juvenile Probation Officer Goals PT Chief Juvenile Probation Officer Goals Time Frame: Sep 25, 2019 Roll Left & Right (QC): 6 Sit to Lying (QC): 6 Lying-Sitting on Side/Bed(QC): 6 Sit to Stand (QC): 4 Chair/Ohm-oj-Okrba Xfer(QC): 4 Toilet Transfer (QC): 4 Car Transfer (QC): 3 Walk 10 feet (QC): 3 Walk 50ft with 2 Turns (QC): 3 Walk 150 ft (QC): 3 Walking 10ft on Uneven Surface: 3 1 Step (curb) (QC): 3 4 Steps (QC): 3 PT Plan Treatment/Plan Treatment Plan: Continue Plan of Care Treatment Plan: Bed Mobility, Education, Functional Activity Dexter, Functional Strength, Group Therapy, Gait, Safety, Therapeutic Exercise, Transfers Treatment Duration: Sep 25, 2019 Frequency: At least 5 of 7 days/Wk (IRF) Estimated Hrs Per Day: 1.5 hours per day Patient and/or Family Agrees t: Yes Safety Risks/Education Patient Education: Gait Training, Transfer Techniques, Correct Positioning, Disease Process, Safety Issues Teaching Recipient: Patient Teaching Methods: Demonstration, Discussion Response to Teaching: Verbalize Understanding, Return Demonstration, Reinforcement Needed Time/GCodes Time In: 1250 Time Out: 1310 Total Billed Treatment Time: 20 Total Billed Treatment 1,FA20m MATILDA POLLARD VEHICLE UPHOLSTERER Sep 12, 2019 13:15
--- NOTE | 2019-09-12 15:27 | NUR ---
"RD ASSESSMENT PMHx: GERD; diverticulosis; pancreatitis; Paget's disease PT INTERACTION: Pt was awake and pleasant during nutrition follow-up. Pt states she is still eating pretty poorly since last assessment, and stated her poor appetite had been going on for about 6 months now. Note avg PO intake <25% meals, per chart review. Pt states she has been drinking her Ensures regularly. Note per RN Stacy, pt has been drinking half of them sometimes. Pt states no issues with n/v/c/d since last assessment. Note last BM was 09/11 and pt currently on bowel regimen of colace BID; senna BID; and miralax BID, per chart review. ABNORMAL NUTRITION-RELATED LAB VALUES LOW: Pro 5.9; alb 2.9 HIGH: BUN 25; glu 146 Est. kcal needs: 3200-9531 kcal | 25-30 kcal/kg Est. Pro needs: 69-83 g Pro | 1.0-1.2 g Pro/kg PES STATEMENT: Inadequate oral intake (NI-2.1) related to loss of appetite as evidenced by pt interview | avg PO intake <25% x5d INTERVENTION: Continue with current diet order of Regular diet. Continue with current supplementation order of Ensure Enlive with meals TID. Provides 350 kcal and 13 g Pro per serving. Encouraged pt to eat when able. Will continue to follow and reassess as pt needs and status change. MONITOR/EVALUATE: PO Intake; Plan of Care; Hydration Status; Weight Status; Lab Values Meggan Orona, MS, RD, LD"
--- NOTE | 2019-09-12 15:48 | Occupational Ther Daily Note ---
OT Current Status-Daily Note Subjective No pain reported. Appearance Pt. up in chair. Agrees to shower. Mental Status/Objective Patient Orientation: Person, Place, Time, Situation ADL-Treatment Therapy Code Descriptions/Definitions Functional [place] Measure: 0=Not Assessed/NA 4=Minimal Assistance 1=Total Assistance 5=Supervision or Setup 2=Maximal Assistance 6=Modified [place] 3=Moderate Assistance 7=Complete IndependenceSCALE: Activities may be completed with or without assistive devices. 3-Vhmpowhwxf-uoguged completes the activity by him/herself with no assistance from a helper. 5-Set-up or Clean-up Assistance-helper sets up or cleans up; patient completes activity. [place] assists only prior to or following the activity. 4-Supervision or Touching Assistance-helper provides verbal cues and/or touching/steadying and/or contact guard assistance as patient completes activity. Assistance may be provided throughout the activity or intermittently. 3-Partial/Moderate Assistance-helper does LESS THAN HALF the effort. [place] lifts, holds or supports trunk or limbs, but provides less than half the effort. 2-Substantial/Maximal Assistance-helper does MORE THAN HALF the effort. [place] lifts or holds trunk or limbs and provides more than half the effort. 5-Xqefidlfo-rtyfok does ALL the effort. Patient does none of the effort to complete the activity. Or, the assistance of 2 or more helpers is required for the patient to complete the activity. If activity was not attempted, code reason: 7-Patient Refused. 9-Not Applicable-not attempted and the patient did not perform the activity before the current illness, exacerbation or injury. 10-Not Attempted due to Environmental Limitations-(lack of equipment, weather restraints, etc.). 88-Not Attempted due to Medical Conditions or Safety Concerns. Oral Hygiene (QC): 5 (Set up seated at sink in wheelchair.) Shower/Bathe Self (QC): 4 (CGA in stance in shower.) Upper Body Dressing (QC): 5 (Set up) Lower Body Dressing (QC): 3 (Min assist with AE.) On/Off Footwear: 3 Toileting Hygiene (QC): 4 (CGA in stance) Toilet Transfer (QC): 4 Other Treatment After ADLs, pt. transferred to wheelchair and self propelled to therapy gym. Completed 15 minutes on arm bike at min resistance to increase overall strength. Several rest breaks noted. Self propelled back to room and transferred to chair with CGA. All needs met. Education OT Patient Education: Correct positioning, Exercise program, Modified ADL techniques, Progress toward Goal/Update tx plan, Purpose of tx/functional activities, Reviewed precautions, Rehab process, Transfer techniques, Use of adapted equipment Teaching Recipient: Patient Teaching Methods: Demonstration, Discussion Response to Teaching: Verbalize Understanding, Return Demonstration OT Short Term Goals Short Term Goals Time Frame: Sep 11, 2019 Eatin Oral hygiene: 5 Toileting hygiene: 4 Shower/bathe self: 3 Upper body dressin Lower body dressin Putting on/taking off footwear: 3 OT Gang Boss Goals Correction Goals Time Frame: Sep 18, 2019 Eating (QC): 6 Oral Hygiene (QC): 6 Toileting Hygiene (QC): 5 Shower/Bathe Self (QC): 5 Upper Body Dressing (QC): 5 Lower Body Dressing (QC): 5 On/Off Footwear (QC): 5 Additional Goals: 1-Demonstrate ADL Tasks, 2-Verbalize Understanding, 3-ImproveStrength/[place] 1=Demonstrate adherence to instructed precautions during ADL tasks. 2=Patient will verbalize/demonstrate understanding of assistive devices/modifications for ADL. 3=Patient will improve strength/tolerance for activity to enable patient to perform ADL's. OT Education/Plan Problem List/Assessment Assessment: Decreased Activ Tolerance, Impaired I ADL's, Impaired Self-Care Skills Discharge Recommendations Plan/Recommendations: Continue POC Therapy Discharge Recommendati: Post Acute OT Equpiment Recommendations-D/C: Hip Kit Treatment Plan/Plan of Care Treatment,Training & Education: Yes Patient would benefit from OT for education, treatment and training to promote independence in ADL's, mobility, safety and/or upper extremity function for ADL's. Plan of Care: ADL Retraining, Functional Mobility, Group Exercise/Act as Ind, UE Funct Exercise/Act Treatment Duration: Sep 18, 2019 Frequency: At least 5 of 7 days/Wk (IRF) Estimated Hrs Per Day: 1.5 hours per day Agreement: Yes Rehab Potential: Fair Time/GCodes Start Time: 09:50 Stop Time: 11:05 Total Time Billed (hr/min): 75 Billed Treatment Time 1, ADL x 45minutes, FA x 15minutes, Ex x 15minutes SEAN MORIN OT Sep 12, 2019 15:48
[2019-09-12 18:00] VITALS: BP 128/72
[2019-09-13] MEDS: LEVOTHYROXINE 88 MCG (LEVOTHORID) TAB PO SCH (05:25)
[2019-09-13 05:42] VITALS: BP 123/72
[2019-09-13] MEDS: POLYETHYLENE GLYCOL 17 GM (MIRALAX) PACK PO SCH ×2 (08:26→20:52)
[2019-09-13] MEDS: SENNA W/DOCUSATE (SENOKOT S) TABLET PO SCH ×2 (08:34→20:52)
[2019-09-13] MEDS: VITAMIN D3 5,000 UNITS (CHOLECALCIFEROL ) CAPSULE PO SCH (08:34)
[2019-09-13] MEDS: DOCUSATE SODIUM 100 MG (COLACE) CAP PO SCH ×2 (08:34→20:52)
[2019-09-13] MEDS: RIVAROXABAN 10 MG TABLET (XARELTO) PO SCH (08:34)
--- NOTE | 2019-09-13 10:20 | PM&R Progress Note ---
Subjective HPI/CC On Admission Date Seen by Provider: Sep 13, 2019 Time Seen by Provider: 08:45 Subjective/Events-last exam Pt doing very well Bowels moved today Pain issues discussed Incision looks good Overall very slow but she's fragile and appears to be a major fall risk Poor appetite is chronic. Checked meds and labs Previously therapy notes Conferred with nuclear reactor operator of Systems General: Fatigue Musculoskeletal: leg pain Objective Exam Vital Signs Vital Signs Date Time Temp Pulse Resp B/P (MAP) Pulse Ox O2 Delivery O2 Flow Rate FiO2 09/14/19 05:01 36.6 83 18 117/73 (88) 98 Room Air Capillary Refill : Less Than 3 SecondsLess Than 3 Seconds General Appearance: No Apparent Distress, WD/WN, Chronically ill, Thin HEENT: PERRL/EOMI, Normal ENT Inspection, Pharynx Normal Neck: Full Range of Motion, Normal Inspection, Non Tender, Supple, Carotid Bruit Respiratory: Chest Non Tender, Lungs Clear, Normal Breath Sounds, No Accessory Muscle Use, No Respiratory Distress Cardiovascular: Regular Rate, Rhythm, No Edema, No Gallop, No JVD, No Murmur, Normal Peripheral Pulses Gastrointestinal: Normal Bowel Sounds, No Organomegaly, No Pulsatile Mass, Non Tender, Soft Back: Normal Inspection, Decreased Range of Motion Extremity: Normal Capillary Refill, Normal Inspection, Normal Range of Motion (right leg limited range of motion due to pain), Non Tender, No Calf Tenderness, No Pedal Edema Neurologic/Psychiatric: Alert, Oriented x3, No Motor/Sensory Deficits, Normal Mood/Affect, iron guardrail installer II-XII Norm as Tested, Other (limited range of motion from right leg pain) Skin: Normal Color, Warm/Dry Lymphatic: No Adenopathy Results/Procedures Lab Patient resulted labs reviewed. FIM Transfers Therapy Code Descriptions/Definitions Functional [place] Measure: 0=Not Assessed/NA 4=Minimal Assistance 1=Total Assistance 5=Supervision or Setup 2=Maximal Assistance 6=Modified [place] 3=Moderate Assistance 7=Complete IndependenceSCALE: Activities may be completed with or without assistive devices. 7-Clgwsheour-tzbwvll completes the activity by him/herself with no assistance from a helper. 5-Set-up or Clean-up Assistance-helper sets up or cleans up; patient completes activity. [place] assists only prior to or following the activity. 4-Supervision or Touching Assistance-helper provides verbal cues and/or touching/steadying and/or contact guard assistance as patient completes activity. Assistance may be provided throughout the activity or intermittently. 3-Partial/Moderate Assistance-helper does LESS THAN HALF the effort. [place] lifts, holds or supports trunk or limbs, but provides less than half the effort. 2-Substantial/Maximal Assistance-helper does MORE THAN HALF the effort. [place] lifts or holds trunk or limbs and provides more than half the effort. 7-Rfuourfuy-vdqudh does ALL the effort. Patient does none of the effort to complete the activity. Or, the assistance of 2 or more helpers is required for the patient to complete the activity. If activity was not attempted, code reason: 7-Patient Refused. 9-Not Applicable-not attempted and the patient did not perform the activity before the current illness, exacerbation or injury. 10-Not Attempted due to Environmental Limitations-(lack of equipment, weather restraints, etc.). 88-Not Attempted due to Medical Conditions or Safety Concerns. Roll Left to Right (QC): 6 Sit to Lying (QC): 4 Sit to Stand (QC): 5 Chair/Qhn-yh-Zpypf Xfer(QC): 5 Gait Training Does the Patient Walk?: Yes Distance: 150' Walk 10 feet (QC): 5 Walk 50 ft with 2 Turns(QC): 5 Walk 150 ft (QC): 5 Gait Persons Needed: 1 Gait Assistive Device: FWW Wheelchair Training Does the Pt Use a Wheelchair?: Yes Wheel 50 ft with 2 turns (QC): 1 Wheel 150 ft (QC): 1 Type of Wheelchair: Manual Stair Training Stair Training: Handrails/: uses walker #of Steps: 4 4 Steps (QC): 4 Stairs: Pattern: Step to Balance Picking up an Object (QC): 88 ADL-Treatment Eating (QC): 6 (Per pt.) Oral Hygiene (QC): 5 (Set up seated at sink in wheelchair.) Shower/Bathe Self (QC): 4 (CGA in stance in shower.) Upper Body Dressing (QC): 5 (Set up) Lower Body Dressing (QC): 3 (Min assist with AE.) On/Off Footwear (QC): 3 Toileting Hygiene (QC): 4 (CGA in stance) Toilet Transfer (QC): 4 Assessment/Plan Assessment and Plan Assess & Plan/Chief Complaint Assessment: 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 Severe constipation narcotic induced Hypothyroidism Subtle confusion Fall risk Advanced age Poor nutritional intake acute on chronic Plan: Pain meds but decreased Monitor blood pressure Maintain bowel regimen Inpatient rehabilitation protocol 12/03 Doing well but very frail Likely will need AL or SNF (1) Closed right hip fracture Status: Acute (2) Hypothyroidism (3) Paget's disease (4) Osteoporosis (5) Falls (6) DVT prophylaxis (7) Anemia (8) Diverticulosis (9) Constipation (10) Incontinence (11) Advanced age (1) Closed right hip fracture Status: Acute (2) Hypothyroidism (3) Paget's disease (4) Osteoporosis (5) Falls (6) DVT prophylaxis (7) Anemia (8) Diverticulosis (9) Constipation (10) Incontinence (11) Advanced age (1) Closed right hip fracture Status: Acute (2) Hypothyroidism (3) Paget's disease (4) Osteoporosis (5) Falls (6) DVT prophylaxis (7) Anemia (8) Diverticulosis (9) Constipation (10) Incontinence (11) Advanced age PAUL PACHECO DO Sep 13, 2019 10:20
--- NOTE | 2019-09-13 11:00 | Speech Therapy Daily Note ---
Speech Daily Progress Note Subjective Date Seen by Provider: Sep 13, 2019 Time Seen by Provider: 10:15 Patient was alert and cooperative for all therapy tasks. Patient reported that she is feeling good today. Patient was sitting upright in her chair for the duration of therapy tasks. Objective Patient completed safety awareness tasks pertaining to nutritional intake with 90% accuracy with minimal cues. Patient completed memory tasks pertaining to familial history and education with 95% accuracy. Treatment Plan Continue Plan of Care Speech Short Term Goals Short Term Goals Short Term Goals 1. Patient will complete memory tasks related to her daily needs with 90% or greater with minimal cues. 2. Patient will complete problem-solving tasks related to her daily needs with 90% or greater with minimal cues. 3. Patient will complete safety awareness tasks related to her daily needs with 90% or greater with minimal cues. Speech Long-Term Goals Massage Coordinator Goals Patient will improve cognitive-communication necessary for safety and daily living tasks with minimal assist. Speech-Plan Patient/Family Goals Patient/Family Goals: Patient wishes to return home to previous level of mobility and independence. Treatment Plan Speech Therapy Treatment Plan: Continue Plan of Care Treatment Duration: Sep 14, 2019 Frequency: 5 times per week Estimated Hrs Per Day: .5 hour per day Rehab Potential: Fair Barriers to Learning: Mild cognitive deficits. Pt/Family Agrees to Plan: Yes Safety Risks/Education Teaching Recipient: Patient Teaching Methods: Demonstration, Discussion Response to Teaching: Verbalize Understanding Education Topics Provided: Patient continues to follow visual reminder to eat daily snacks to increase nutritional intake. Time Speech Therapy Time In: 10:15 Speech Therapy Time Out: 10:45 Total Billed Time: 30 Billed Treatment Time [address]RE [address] Sep 13, 2019 11:00
--- NOTE | 2019-09-13 11:05 | Physical Therapy Daily Note ---
PT Daily Note-Current Subjective Pt laying Supine in bed upon arrival. Pt reports more pain this morning but hasn't had pain med yet. Pt agrees to PT. Nurse give pain med during Rx. Pain Numeric Pain Scale: 7 Location: Right Location Body Site: Hip Pain Description: Ache, Tightness Mental Status Patient Orientation: Person, Place, Situation Transfers SCALE: Activities may be completed with or without assistive devices. 7-Qbwadesoxi-hiofvfx completes the activity by him/herself with no assistance from a helper. 5-Set-up or Clean-up Assistance-helper sets up or cleans up; patient completes activity. [place] assists only prior to or following the activity. 4-Supervision or Touching Assistance-helper provides verbal cues and/or touching/steadying and/or contact guard assistance as patient completes activity. Assistance may be provided throughout the activity or intermittently. 3-Partial/Moderate Assistance-helper does LESS THAN HALF the effort. [place] lifts, holds or supports trunk or limbs, but provides less than half the effort. 2-Substantial/Maximal Assistance-helper does MORE THAN HALF the effort. [place] lifts or holds trunk or limbs and provides more than half the effort. 8-Tmkmkcxbk-xcckff does ALL the effort. Patient does none of the effort to complete the activity. Or, the assistance of 2 or more helpers is required for the patient to complete the activity. If activity was not attempted, code reason: 7-Patient Refused. 9-Not Applicable-not attempted and the patient did not perform the activity before the current illness, exacerbation or injury. 10-Not Attempted due to Environmental Limitations-(lack of equipment, weather restraints, etc.). 88-Not Attempted due to Medical Conditions or Safety Concerns. Roll Left & Right (QC): 4 Sit to Lying (QC): 4 Lying to Sitting/Side of Bed(Q: 4 Sit to Stand (QC): 5 Weight Bearing Right Lower Extremity: Right Weight Bearing/Tolerated Left Lower Extremity: Left Full Weight Bearing Gait Training Does the Patient Walk?: Yes Distance: 150' Walk 10 feet (QC): 4 Walk 50 ft with 2 Turns(QC): 4 Walk 150 ft (QC): 4 Gait Persons Needed: 1 Gait Assistive Device: FWW Pt reports feeling more stiff and sore today. Pt moves in more antalgic gait pattern to start Rx but improves by end. Exercises Seated Therapy Exercises: Ankle pumps, Long arc quads, Hip flexion, Kicking activity Seated Reps: 20 NuStep Minutes: 15 NuStep Workload: 4 Treatments Pt transfers from Supine to EOB with more pain than previous Rx. Pt is then able to stand and ambulate in hallway. Pt completes Seated Ex in chair before transferring to NuStep. Pt uses NuStep for 15m at WL 4. Pt returns to room at end of Rx to rest in recliner. Pt is assisted with repositioning. Pt has all needs met, call light in hand. Assessment Current Status: Fair Progress Pt started out slow with more pain & stiffness but this improves as pt is able to move during Rx. PT Short Term Goals Short Term Goals Time Frame: Sep 11, 2019 Roll Left & Right: 3 Sit to lyin Lying to sitting on side of be: 3 Sit to stand: 3 Chair/inu-vp-gvewo transfer: 3 Walk 10 feet: 3 PT Fdc Goals Fdc Goals PT Fdc Goals Time Frame: Sep 25, 2019 Roll Left & Right (QC): 6 Sit to Lying (QC): 6 Lying-Sitting on Side/Bed(QC): 6 Sit to Stand (QC): 4 Chair/Ldp-ma-Qyyfh Xfer(QC): 4 Toilet Transfer (QC): 4 Car Transfer (QC): 3 Walk 10 feet (QC): 3 Walk 50ft with 2 Turns (QC): 3 Walk 150 ft (QC): 3 Walking 10ft on Uneven Surface: 3 1 Step (curb) (QC): 3 4 Steps (QC): 3 PT Plan Problem List Problem List: Activity Tolerance, Functional Strength, Gait, Transfer Treatment/Plan Treatment Plan: Continue Plan of Care Treatment Plan: Bed Mobility, Education, Functional Activity Dexter, Functional Strength, Group Therapy, Gait, Safety, Therapeutic Exercise, Transfers Treatment Duration: Sep 25, 2019 Frequency: At least 5 of 7 days/Wk (IRF) Estimated Hrs Per Day: 1.5 hours per day Patient and/or Family Agrees t: Yes Safety Risks/Education Patient Education: Gait Training, Transfer Techniques, Correct Positioning, Safety Issues Teaching Recipient: Patient Teaching Methods: Discussion Response to Teaching: Verbalize Understanding Time/GCodes Time In: 800 Time Out: 900 Total Billed Treatment Time: 60 Total Billed Treatment 1, GT (15m), EX x2 (30m) & FA (15m) TREIBER,ALKA VP SITE Sep 13, 2019 11:05
--- NOTE | 2019-09-13 12:39 | NUR ---
CM/SS WEEKLY TEAM CONFERENCE SUMMARY Visited with patient this a.m., she is in agreement to a continued stay with review next Tuesday09/19/19. Patient hopes to continue to progress to where she can return home with her son when discharged. She believes that if she can ambulate safely and perform her own self-care needs like toileting, bathing, dressing, then her son could make sure other things less 'personal' were available for her at home. Explored other options again, including Medicare mcc short term placement as well as respite stay in assisted living environment with Medicare B therapies. Patient indicates she understands that the assisted living situation would be private pay and she stated that [facility] would be ideal because it was just blocks from where she lives. Discussed patient's dietary habits. After a bout of two hospitalizations for diverticulitis, she said she was given a strict diet by a physician that she made every effort to follow. Since that time, she has changed her eating habits overall, including little to no meats, no seeds or seeded foods. A combination of the diet and/or her personal tastes, she doesn't eat eggs in any form. She eats yogurt, cottage cheese, fruits, vegetables, and drinks nutritional substitutes daily like ensure. She likes sandwiches from [employer]'s made with their ham salad, so that meat is ground. Beveler will discuss with NITA Vann because patient is having a regular diet delivered with foods she does not desire or will eat. Follow for discharge planning process depending on patient's care needs.
--- NOTE | 2019-09-13 13:20 | Occupational Ther Daily Note ---
OT Current Status-Daily Note Subjective No pain reported. Appearance Pt. up in chair. Agrees to work with OT. Mental Status/Objective Patient Orientation: Person, Place ADL-Treatment Therapy Code Descriptions/Definitions Functional [place] Measure: 0=Not Assessed/NA 4=Minimal Assistance 1=Total Assistance 5=Supervision or Setup 2=Maximal Assistance 6=Modified [place] 3=Moderate Assistance 7=Complete IndependenceSCALE: Activities may be completed with or without assistive devices. 8-Jydjuwxybp-mldchjd completes the activity by him/herself with no assistance from a helper. 5-Set-up or Clean-up Assistance-helper sets up or cleans up; patient completes activity. [place] assists only prior to or following the activity. 4-Supervision or Touching Assistance-helper provides verbal cues and/or touching/steadying and/or contact guard assistance as patient completes activity. Assistance may be provided throughout the activity or intermittently. 3-Partial/Moderate Assistance-helper does LESS THAN HALF the effort. [place] lifts, holds or supports trunk or limbs, but provides less than half the effort. 2-Substantial/Maximal Assistance-helper does MORE THAN HALF the effort. [place] lifts or holds trunk or limbs and provides more than half the effort. 9-Wpgmlegsv-pjqzkn does ALL the effort. Patient does none of the effort to complete the activity. Or, the assistance of 2 or more helpers is required for the patient to complete the activity. If activity was not attempted, code reason: 7-Patient Refused. 9-Not Applicable-not attempted and the patient did not perform the activity before the current illness, exacerbation or injury. 10-Not Attempted due to Environmental Limitations-(lack of equipment, weather restraints, etc.). 88-Not Attempted due to Medical Conditions or Safety Concerns. Eating (QC): 5 (Set up) Toileting Hygiene (QC): 4 (CGA) Toilet Transfer (QC): 4 (CGA) Pt. declines bathing, and requests to stay in her gown from home, as it is warm. Requested to use toilet. After toileting with CGA, pt. stood at sink to wash hands. Utilized walker. Ambulated with CGA to therapy gym. Slow gait noted but pt. stable on feet. Completed 12 minutes on arm bike with multiple rest breaks. Educated pt. on home safety and fall prevention. Pt. verbalizes understanding of suggestions, and states that she plans to get a life alert button to wear. Donned 1 lb. wrist weights and completed reaching activity with pegs for bilateral UE exercise. Tolerated well. Doffed weights and ambulated back to room with CGA. All needs met up in chair. Education OT Patient Education: Correct positioning, Exercise program, Modified ADL techniques, Progress toward Goal/Update tx plan, Purpose of tx/functional activities, Reviewed precautions, Rehab process, Transfer techniques Teaching Recipient: Patient Teaching Methods: Demonstration, Discussion Response to Teaching: Verbalize Understanding, Return Demonstration OT Short Term Goals Short Term Goals Time Frame: Sep 11, 2019 Eatin Oral hygiene: 5 Toileting hygiene: 4 Shower/bathe self: 3 Upper body dressin Lower body dressin Putting on/taking off footwear: 3 OT Mcc Goals Factory Expert Goals Time Frame: Sep 18, 2019 Eating (QC): 6 Oral Hygiene (QC): 6 Toileting Hygiene (QC): 5 Shower/Bathe Self (QC): 5 Upper Body Dressing (QC): 5 Lower Body Dressing (QC): 5 On/Off Footwear (QC): 5 Additional Goals: 1-Demonstrate ADL Tasks, 2-Verbalize Understanding, 3- ImproveStrength/[place] 1=Demonstrate adherence to instructed precautions during ADL tasks. 2=Patient will verbalize/demonstrate understanding of assistive devices/modifications for ADL. 3=Patient will improve strength/tolerance for activity to enable patient to perform ADL's. OT Education/Plan Problem List/Assessment Assessment: Decreased Activ Tolerance, Decreased UE Strength, Impaired I ADL's, Impaired Self-Care Skills Discharge Recommendations Plan/Recommendations: Continue POC Therapy Discharge Recommendati: Bath Aide, Home & Family, Post Acute OT Equpiment Recommendations-D/C: Hip Kit Treatment Plan/Plan of Care Treatment,Training & Education: Yes Patient would benefit from OT for education, treatment and training to promote independence in ADL's, mobility, safety and/or upper extremity function for ADL's. Plan of Care: ADL Retraining, Functional Mobility, Group Exercise/Act as Ind, UE Funct Exercise/Act Treatment Duration: Sep 18, 2019 Frequency: At least 5 of 7 days/Wk (IRF) Estimated Hrs Per Day: 1.5 hours per day Agreement: Yes Rehab Potential: Fair Time/GCodes Start Time: 11:00 Stop Time: 12:15 Total Time Billed (hr/min): 75 Billed Treatment Time 1, ADL x 30minutes, Ex x 15minutes, FA x 30minutes SEAN MORIN OT Sep 13, 2019 13:20
--- NOTE | 2019-09-13 14:39 | Physical Therapy Daily Note ---
PT Daily Note-Current Subjective Pt sitting in recliner upon arrival. Pt agrees to PT. Pain Numeric Pain Scale: 3 Location: Right Location Body Site: Hip Pain Description: Ache Mental Status Patient Orientation: Person, Place, Situation Transfers SCALE: Activities may be completed with or without assistive devices. 6-Qaaldmleas-gfhgniv completes the activity by him/herself with no assistance from a helper. 5-Set-up or Clean-up Assistance-helper sets up or cleans up; patient completes activity. [place] assists only prior to or following the activity. 4-Supervision or Touching Assistance-helper provides verbal cues and/or touching/steadying and/or contact guard assistance as patient completes activity. Assistance may be provided throughout the activity or intermittently. 3-Partial/Moderate Assistance-helper does LESS THAN HALF the effort. [place] lifts, holds or supports trunk or limbs, but provides less than half the effort. 2-Substantial/Maximal Assistance-helper does MORE THAN HALF the effort. [place] lifts or holds trunk or limbs and provides more than half the effort. 1-Eklnhnrcp-yjebbq does ALL the effort. Patient does none of the effort to complete the activity. Or, the assistance of 2 or more helpers is required for the patient to complete the activity. If activity was not attempted, code reason: 7-Patient Refused. 9-Not Applicable-not attempted and the patient did not perform the activity befo re the current illness, exacerbation or injury. 10-Not Attempted due to Environmental Limitations-(lack of equipment, weather re straints, etc.). 88-Not Attempted due to Medical Conditions or Safety Concerns. Sit to Lying (QC): 4 Lying to Sitting/Side of Bed(Q: 4 Sit to Stand (QC): 5 Weight Bearing Right Lower Extremity: Right Weight Bearing/Tolerated Left Lower Extremity: Left Full Weight Bearing Gait Training Does the Patient Walk?: Yes Distance: 150' Walk 10 feet (QC): 5 Walk 50 ft with 2 Turns(QC): 5 Walk 150 ft (QC): 5 Gait Persons Needed: 1 Gait Assistive Device: FWW Treatments Pt transfers from recliner to standing. Pt ambulates in hallway using FWW. Pt returns to room and transfers to Supine in bed. HAM TRIMMER assists with repositioning, HMP applied. Pt has all needs met, call light in hand. Assessment Current Status: Good Progress Pt is moving better, less stiff/tight this afternoon. PT Short Term Goals Short Term Goals Time Frame: Sep 11, 2019 Roll Left & Right: 3 Sit to lyin Lying to sitting on side of be: 3 Sit to stand: 3 Chair/kpz-xr-etxmz transfer: 3 Walk 10 feet: 3 PT Outlet Manager Goals Chcf Goals PT Outlet Manager Goals Time Frame: Sep 25, 2019 Roll Left & Right (QC): 6 Sit to Lying (QC): 6 Lying-Sitting on Side/Bed(QC): 6 Sit to Stand (QC): 4 Chair/Uwc-ci-Ftvlo Xfer(QC): 4 Toilet Transfer (QC): 4 Car Transfer (QC): 3 Walk 10 feet (QC): 3 Walk 50ft with 2 Turns (QC): 3 Walk 150 ft (QC): 3 Walking 10ft on Uneven Surface: 3 1 Step (curb) (QC): 3 4 Steps (QC): 3 PT Plan Problem List Problem List: Activity Tolerance, Functional Strength, Transfer Treatment/Plan Treatment Plan: Continue Plan of Care Treatment Plan: Bed Mobility, Education, Functional Activity Dexter, Functional Strength, Group Therapy, Gait, Safety, Therapeutic Exercise, Transfers Treatment Duration: Sep 25, 2019 Frequency: At least 5 of 7 days/Wk (IRF) Estimated Hrs Per Day: 1.5 hours per day Patient and/or Family Agrees t: Yes Safety Risks/Education Patient Education: Gait Training, Transfer Techniques, Correct Positioning, Safety Issues Teaching Recipient: Patient Teaching Methods: Discussion Response to Teaching: Verbalize Understanding Time/GCodes Time In: 1300 Time Out: 1315 Total Billed Treatment Time: 15 Total Billed Treatment 1, GT (15m) ALKA VERDUGO HAM TRIMMER Sep 13, 2019 14:39
[2019-09-13 18:00] VITALS: BP 131/74
[2019-09-13] MEDS: HYDROcodone/APAP 5 MG/325 MG (LORTAB) TAB PO PRN (21:56)
[2019-09-14] MEDS: HYDROcodone/APAP 5 MG/325 MG (LORTAB) TAB PO PRN ×2 (02:47→23:18)
[2019-09-14 05:01] VITALS: BP 117/73
[2019-09-14] MEDS: LEVOTHYROXINE 88 MCG (LEVOTHORID) TAB PO SCH (06:09)
--- NOTE | 2019-09-14 09:01 | Physical Therapy Daily Note ---
PT Daily Note-Current Subjective Pt. in bed but agrees to Rx. States she is still worried about her sister and brother in law but "they will do whatever they want I know that" Pain Numeric Pain Scale: 4 Location: Right Location Body Site: Hip Pain Description: Ache Mental Status Patient Orientation: Normal For Age Transfers SCALE: Activities may be completed with or without assistive devices. 0-Ramandhwle-cwreple completes the activity by him/herself with no assistance from a helper. 5-Set-up or Clean-up Assistance-helper sets up or cleans up; patient completes activity. [place] assists only prior to or following the activity. 4-Supervision or Touching Assistance-helper provides verbal cues and/or touching/steadying and/or contact guard assistance as patient completes activity. Assistance may be provided throughout the activity or intermittently. 3-Partial/Moderate Assistance-helper does LESS THAN HALF the effort. [place] lifts, holds or supports trunk or limbs, but provides less than half the effort. 2-Substantial/Maximal Assistance-helper does MORE THAN HALF the effort. [place] lifts or holds trunk or limbs and provides more than half the effort. 0-Savlmgexs-dqchuo does ALL the effort. Patient does none of the effort to complete the activity. Or, the assistance of 2 or more helpers is required for the patient to complete the activity. If activity was not attempted, code reason: 7-Patient Refused. 9-Not Applicable-not attempted and the patient did not perform the activity before the current illness, exacerbation or injury. 10-Not Attempted due to Environmental Limitations-(lack of equipment, weather restraints, etc.). 88-Not Attempted due to Medical Conditions or Safety Concerns. Roll Left & Right (QC): 6 Sit to Lying (QC): 6 Lying to Sitting/Side of Bed(Q: 6 Sit to Stand (QC): 6 Chair/Zcr-ma-Vmafz Xfer(QC): 6 Toilet Transfer (QC): 6 Weight Bearing Right Lower Extremity: Right Weight Bearing/Tolerated Left Lower Extremity: Left Full Weight Bearing Gait Training Does the Patient Walk?: Yes Walk 10 feet (QC): 5 Walk 50 ft with 2 Turns(QC): 5 Walk 150 ft (QC): 5 Gait Persons Needed: 1 Gait Assistive Device: FWW kyphotic, heavy wt bearing on FWW Stair Training Stair Training: Handrails/: uses walker #of Steps: 4 1 Step (curb) (QC): 4 4 Steps (QC): 4 Stairs: Pattern: Step to instruction for sequence Exercises Supine Ex: Ankle pumps, Quad Set, Rolling, Glut sets, Heel Slides, Short Arc Quads, Scooting, Straight leg raise (assit), Hip abd/add (ssit) Supine Reps: 15 Seated Therapy Exercises: Sit to stand, Long arc quads Seated Reps: 12 Assessment Current Status: Good Progress PT Short Term Goals Short Term Goals Time Frame: Sep 11, 2019 Roll Left & Right: 3 Sit to lyin Lying to sitting on side of be: 3 Sit to stand: 3 Chair/eca-az-lgwon transfer: 3 Walk 10 feet: 3 PT Retirement Goals Retirement Goals PT Butter Liquefier Goals Time Frame: Sep 25, 2019 Roll Left & Right (QC): 6 Sit to Lying (QC): 6 Lying-Sitting on Side/Bed(QC): 6 Sit to Stand (QC): 4 Chair/Sxu-yj-Akakx Xfer(QC): 4 Toilet Transfer (QC): 4 Car Transfer (QC): 3 Walk 10 feet (QC): 3 Walk 50ft with 2 Turns (QC): 3 Walk 150 ft (QC): 3 Walking 10ft on Uneven Surface: 3 1 Step (curb) (QC): 3 4 Steps (QC): 3 PT Plan Treatment/Plan Treatment Plan: Continue Plan of Care Treatment Plan: Bed Mobility, Education, Functional Activity Dexter, Functional Strength, Group Therapy, Gait, Safety, Therapeutic Exercise, Transfers Treatment Duration: Sep 25, 2019 Frequency: At least 5 of 7 days/Wk (IRF) Estimated Hrs Per Day: 1.5 hours per day Patient and/or Family Agrees t: Yes Safety Risks/Education Patient Education: Gait Training, Transfer Techniques, Steps, Correct Positioning, Disease Process, Safety Issues Teaching Recipient: Patient Teaching Methods: Demonstration, Discussion Response to Teaching: Verbalize Understanding, Return Demonstration, Reinforcement Needed Time/GCodes Time In: 800 Time Out: 900 Total Billed Treatment Time: 60 Total Billed Treatment 1,FA30m,EX15m,GT15m MATILDA POLLARD ACCOUNT RESOLUTION EXPERT Sep 14, 2019 09:01
--- NOTE | 2019-09-14 09:51 | Occupational Ther Daily Note ---
OT Current Status-Daily Note Subjective Pt seen in recliner chair post-PT session. Pt states minimal pain in R lateral hip due to exercises. Pt agrees to OT tx session. Mental Status/Objective Patient Orientation: Person, Place, Situation, Normal For Age ADL-Treatment Therapy Code Descriptions/Definitions Functional [place] Measure: 0=Not Assessed/NA 4=Minimal Assistance 1=Total Assistance 5=Supervision or Setup 2=Maximal Assistance 6=Modified [place] 3=Moderate Assistance 7=Complete IndependenceSCALE: Activities may be completed with or without assistive devices. 2-Ddjborqwmf-lasdsgi completes the activity by him/herself with no assistance from a helper. 5-Set-up or Clean-up Assistance-helper sets up or cleans up; patient completes activity. [place] assists only prior to or following the activity. 4-Supervision or Touching Assistance-helper provides verbal cues and/or touching/steadying and/or contact guard assistance as patient completes acti vity. Assistance may be provided throughout the activity or intermittently. 3-Partial/Moderate Assistance-helper does LESS THAN HALF the effort. [place] lifts, holds or supports trunk or limbs, but provides less than half the effort. 2-Substantial/Maximal Assistance-helper does MORE THAN HALF the effort. [place] lifts or holds trunk or limbs and provides more than half the effort. 2-Azaufwwtm-ejhnpe does ALL the effort. Patient does none of the effort to complete the activity. Or, the assistance of 2 or more helpers is required for the patient to complete the activity. If activity was not attempted, code reason: 7-Patient Refused. 9-Not Applicable-not attempted and the patient did not perform the activity before the current illness, exacerbation or injury. 10-Not Attempted due to Environmental Limitations-(lack of equipment, weather restraints, etc.). 88-Not Attempted due to Medical Conditions or Safety Concerns. Eating (QC): 5 (water handed to pt.) Oral Hygiene (QC): 6 Shower/Bathe Self (QC): 5 (s/u shower, SBA in transfer) Upper Body Dressing (QC): 6 Lower Body Dressing (QC): 3 (Min A RLE undergarment donning with tire specialist. ) On/Off Footwear: 6 (completes with sock aide.) Toileting Hygiene (QC): 6 (completes with IND at commode) Toilet Transfer (QC): 4 (SUP with FWW.) Other Treatment Pt agrees to shower. Sit to stand with SUP, transfers with SUP to shower bench (shower s/u). Pt completes showering with IND. Dries self IND. Pt requests commode post-showering, completes BM and hygiene with IND. Pt dresses in sitting on commode and stands at FWW to complete oral hygiene/ hair. Pt returns to recliner and completes UB theraband exercise with cues for movement: completes 3 sets of 10 back flies, not able to reach full range. Pt educated to complete theraband or AROM 3x through day. Pt agrees, left in room with call light in reach, all needs met. Education OT Patient Education: Correct positioning, Exercise program, Home exercise program, Modified ADL techniques, Purpose of tx/functional activities, Safety issues, Use of adapted equipment Teaching Recipient: Patient Teaching Methods: Demonstration, Discussion Response to Teaching: Verbalize Understanding, Return Demonstration OT Short Term Goals Short Term Goals Time Frame: Sep 11, 2019 Eatin Oral hygiene: 5 Toileting hygiene: 4 Shower/bathe self: 3 Upper body dressin Lower body dressin Putting on/taking off footwear: 3 OT Alf Goals Alf Goals Time Frame: Sep 18, 2019 Eating (QC): 6 Oral Hygiene (QC): 6 Toileting Hygiene (QC): 5 Shower/Bathe Self (QC): 5 Upper Body Dressing (QC): 5 Lower Body Dressing (QC): 5 On/Off Footwear (QC): 5 Additional Goals: 1-Demonstrate ADL Tasks, 2-Verbalize Understanding, 3-Improv eStrength/[place] 1=Demonstrate adherence to instructed precautions during ADL tasks. 2=Patient will verbalize/demonstrate understanding of assistive devices/modifications for ADL. 3=Patient will improve strength/tolerance for activity to enable patient to p erform ADL's. OT Education/Plan Problem List/Assessment Assessment: Decreased Activ Tolerance, Decreased UE Strength, Impaired I ADL's, Impaired Self-Care Skills Discharge Recommendations Plan/Recommendations: Continue POC Treatment Plan/Plan of Care Patient would benefit from OT for education, treatment and training to promote independence in ADL's, mobility, safety and/or upper extremity function for ADL' s. Plan of Care: ADL Retraining, Functional Mobility, Group Exercise/Act as Ind, UE Funct Exercise/Act Treatment Duration: Sep 18, 2019 Frequency: 5 times per week Estimated Hrs Per Day: 1.5 hours per day Agreement: Yes Rehab Potential: Fair Time/GCodes Start Time: 09:15 Stop Time: 10:30 Total Time Billed (hr/min): 75 Billed Treatment Time 1, ADL 4(60), EX (15)=75 VIKASH MARCOS OTR Sep 14, 2019 09:51
[2019-09-14] MEDS: POLYETHYLENE GLYCOL 17 GM (MIRALAX) PACK PO SCH ×2 (10:03→19:45)
[2019-09-14] MEDS: SENNA W/DOCUSATE (SENOKOT S) TABLET PO SCH ×2 (10:03→19:45)
[2019-09-14] MEDS: RIVAROXABAN 10 MG TABLET (XARELTO) PO SCH (10:04)
[2019-09-14] MEDS: DOCUSATE SODIUM 100 MG (COLACE) CAP PO SCH ×2 (10:04→19:45)
[2019-09-14] MEDS: VITAMIN D3 5,000 UNITS (CHOLECALCIFEROL ) CAPSULE PO SCH (10:04)
--- NOTE | 2019-09-14 10:17 | NUR ---
CM/SS CONCURRENT NOTE Head Golf Professional visited with Maxwell regarding patient's desired foods and foods that she will eat. He will speak with her to make a list of those items and work with dietary staff so that she will receive what we know she considers acceptable and desirable for her meals.
--- NOTE | 2019-09-14 11:55 | PM&R Progress Note ---
Subjective HPI/CC On Admission Date Seen by Provider: Sep 14, 2019 Time Seen by Provider: 09:30 Subjective/Events-last exam BM was yesterday Chronic appetite loss Ensure is consumed at meal time No pain is reported other than hip which is well controlled Overall very slow but she's fragile and appears to be a major fall risk Poor appetite is chronic. Checked meds and labs Previously therapy notes Conferred with museum tour guide of Systems General: Fatigue Musculoskeletal: leg pain Objective Exam Vital Signs Vital Signs Date Time Temp Pulse Resp B/P (MAP) Pulse Ox O2 Delivery O2 Flow Rate FiO2 09/14/19 20:00 Room Air 09/14/19 18:00 36.9 84 18 132/78 (96) 98 Capillary Refill : Less Than 3 SecondsLess Than 3 Seconds General Appearance: No Apparent Distress, WD/WN, Chronically ill, Thin HEENT: PERRL/EOMI, Normal ENT Inspection, Pharynx Normal Neck: Full Range of Motion, Normal Inspection, Non Tender, Supple, Carotid Bruit Respiratory: Chest Non Tender, Lungs Clear, Normal Breath Sounds, No Accessory Muscle Use, No Respiratory Distress Cardiovascular: Regular Rate, Rhythm, No Edema, No Gallop, No JVD, No Murmur, Normal Peripheral Pulses Gastrointestinal: Normal Bowel Sounds, No Organomegaly, No Pulsatile Mass, Non Tender, Soft Back: Normal Inspection, Decreased Range of Motion Extremity: Normal Capillary Refill, Normal Inspection, Normal Range of Motion (right leg limited range of motion due to pain), Non Tender, No Calf Tenderness, No Pedal Edema Neurologic/Psychiatric: Alert, Oriented x3, No Motor/Sensory Deficits, Normal Mood/Affect, furnace operator II-XII Norm as Tested, Other (limited range of motion from right leg pain) Skin: Normal Color, Warm/Dry Lymphatic: No Adenopathy Results/Procedures Lab Patient resulted labs reviewed. FIM Transfers Therapy Code Descriptions/Definitions Functional [place] Measure: 0=Not Assessed/NA 4=Minimal Assistance 1=Total Assistance 5=Supervision or Setup 2=Maximal Assistance 6=Modified [place] 3=Moderate Assistance 7=Complete IndependenceSCALE: Activities may be completed with or without assistive devices. 5-Vekofnhzra-lutaplg completes the activity by him/herself with no assistance from a helper. 5-Set-up or Clean-up Assistance-helper sets up or cleans up; patient completes activity. [place] assists only prior to or following the activity. 4-Supervision or Touching Assistance-helper provides verbal cues and/or touching/steadying and/or contact guard assistance as patient completes activity. Assistance may be provided throughout the activity or intermittently. 3-Partial/Moderate Assistance-helper does LESS THAN HALF the effort. [place] lifts, holds or supports trunk or limbs, but provides less than half the effort. 2-Substantial/Maximal Assistance-helper does MORE THAN HALF the effort. [place] lifts or holds trunk or limbs and provides more than half the effort. 0-Jczygjfjz-opvxpf does ALL the effort. Patient does none of the effort to complete the activity. Or, the assistance of 2 or more helpers is required for the patient to complete the activity. If activity was not attempted, code reason: 7-Patient Refused. 9-Not Applicable-not attempted and the patient did not perform the activity before the current illness, exacerbation or injury. 10-Not Attempted due to Environmental Limitations-(lack of equipment, weather restraints, etc.). 88-Not Attempted due to Medical Conditions or Safety Concerns. Roll Left to Right (QC): 6 Sit to Lying (QC): 6 Sit to Stand (QC): 6 Chair/Hjv-qo-Iinck Xfer(QC): 6 Gait Training Does the Patient Walk?: Yes Distance: 150' Walk 10 feet (QC): 5 Walk 50 ft with 2 Turns(QC): 5 Walk 150 ft (QC): 5 Gait Persons Needed: 1 Gait Assistive Device: FWW Wheelchair Training Does the Pt Use a Wheelchair?: Yes Wheel 50 ft with 2 turns (QC): 1 Wheel 150 ft (QC): 1 Type of Wheelchair: Manual Stair Training Stair Training: Handrails/: uses walker #of Steps: 4 1 Step (curb) (QC): 4 4 Steps (QC): 4 Stairs: Pattern: Step to Balance Picking up an Object (QC): 88 ADL-Treatment Eating (QC): 5 (water handed to pt.) Oral Hygiene (QC): 6 Shower/Bathe Self (QC): 5 (s/u shower, SBA in transfer) Upper Body Dressing (QC): 6 Lower Body Dressing (QC): 3 (Min A RLE undergarment donning with dyed yarn operator. ) On/Off Footwear (QC): 6 (completes with sock aide.) Toileting Hygiene (QC): 6 (completes with IND at commode) Toilet Transfer (QC): 4 (SUP with FWW.) Assessment/Plan Assessment and Plan Assess & Plan/Chief Complaint Assessment: 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 Severe constipation narcotic induced Hypothyroidism Subtle confusion Fall risk Advanced age Poor nutritional intake acute on chronic Plan: Pain meds but decreased Monitor blood pressure Maintain bowel regimen Inpatient rehabilitation protocol 12/03 Doing well but very frail Likely will need AL or SNF Minimize pain meds (1) Closed right hip fracture Status: Acute (2) Hypothyroidism (3) Paget's disease (4) Osteoporosis (5) Falls (6) DVT prophylaxis (7) Anemia (8) Diverticulosis (9) Constipation (10) Incontinence (11) Advanced age (1) Closed right hip fracture Status: Acute (2) Hypothyroidism (3) Paget's disease (4) Osteoporosis (5) Falls (6) DVT prophylaxis (7) Anemia (8) Diverticulosis (9) Constipation (10) Incontinence (11) Advanced age (1) Closed right hip fracture Status: Acute (2) Hypothyroidism (3) Paget's disease (4) Osteoporosis (5) Falls (6) DVT prophylaxis (7) Anemia (8) Diverticulosis (9) Constipation (10) Incontinence (11) Advanced age PAUL PACHECO DO Sep 14, 2019 11:55
--- NOTE | 2019-09-14 14:04 | Physical Therapy Daily Note ---
PT Daily Note-Current Subjective Pt. states she is tired. Agrees to walking and sitting exercise, would like to toilet then go to bed. Pain Location: No Pain Reported Mental Status Patient Orientation: Normal For Age Transfers SCALE: Activities may be completed with or without assistive devices. 5-Akuisbofms-wxizyph completes the activity by him/herself with no assistance from a helper. 5-Set-up or Clean-up Assistance-helper sets up or cleans up; patient completes activity. [place] assists only prior to or following the activity. 4-Supervision or Touching Assistance-helper provides verbal cues and/or touchi ng/steadying and/or contact guard assistance as patient completes activity. Assistance may be provided throughout the activity or intermittently. 3-Partial/Moderate Assistance-helper does LESS THAN HALF the effort. [place] lifts, holds or supports trunk or limbs, but provides less than half the effort. 2-Substantial/Maximal Assistance-helper does MORE THAN HALF the effort. [place] lifts or holds trunk or limbs and provides more than half the effort. 2-Dsnxtdmuq-ovfhzg does ALL the effort. Patient does none of the effort to complete the activity. Or, the assistance of 2 or more helpers is required for the patient to complete the activity. If activity was not attempted, code reason: 7-Patient Refused. 9-Not Applicable-not attempted and the patient did not perform the activity before the current illness, exacerbation or injury. 10-Not Attempted due to Environmental Limitations-(lack of equipment, weather restraints, etc.). 88-Not Attempted due to Medical Conditions or Safety Concerns. in out chair, on off bed, on off toilet CGA to SBA Weight Bearing Right Lower Extremity: Right Weight Bearing/Tolerated Left Lower Extremity: Left Full Weight Bearing Gait Training Does the Patient Walk?: Yes Gait Assistive Device: FWW [id number], FWW no LOB, slow, kyphotic Exercises Supine Ex: Ankle pumps, Heel Slides, Hip abd/add Supine Reps: 10 Treatments toileted SBA Assessment Current Status: Good Progress PT Short Term Goals Short Term Goals Time Frame: Sep 11, 2019 Roll Left & Right: 3 Sit to lyin Lying to sitting on side of be: 3 Sit to stand: 3 Chair/iuf-kb-bxaeg transfer: 3 Walk 10 feet: 3 PT Conservation Planner Goals Conservation Planner Goals PT Conservation Planner Goals Time Frame: Sep 25, 2019 Roll Left & Right (QC): 6 Sit to Lying (QC): 6 Lying-Sitting on Side/Bed(QC): 6 Sit to Stand (QC): 4 Chair/Qgj-ik-Rgsls Xfer(QC): 4 Toilet Transfer (QC): 4 Car Transfer (QC): 3 Walk 10 feet (QC): 3 Walk 50ft with 2 Turns (QC): 3 Walk 150 ft (QC): 3 Walking 10ft on Uneven Surface: 3 1 Step (curb) (QC): 3 4 Steps (QC): 3 PT Plan Treatment/Plan Treatment Plan: Continue Plan of Care Treatment Plan: Bed Mobility, Education, Functional Activity Dexter, Functional Strength, Group Therapy, Gait, Safety, Therapeutic Exercise, Transfers Treatment Duration: Sep 25, 2019 Frequency: At least 5 of 7 days/Wk (IRF) Estimated Hrs Per Day: 1.5 hours per day Patient and/or Family Agrees t: Yes Safety Risks/Education Patient Education: Gait Training, Transfer Techniques, Correct Positioning, Disease Process, Safety Issues Teaching Recipient: Patient Teaching Methods: Demonstration, Discussion Response to Teaching: Verbalize Understanding, Return Demonstration, Reinforcement Needed Time/GCodes Time In: 1350 Time Out: 1410 Total Billed Treatment Time: 20 Total Billed Treatment 1,GT20m MATILDA POLLARD SECURITY INSTALLATION SALES TECHNICIAN Sep 14, 2019 14:04
--- NOTE | 2019-09-14 14:05 | Speech Therapy Daily Note ---
Speech Daily Progress Note Subjective Date Seen by Provider: Sep 14, 2019 Time Seen by Provider: 10:30 Patient was alert, upbeat, and cooperative for all therapy tasks. Patient sat upright in her chair for the duration of treatment. Patient reported that the portion sized on her tray are still too large and is still overwhelmed by the size. Objective Patient completed safety awareness tasks pertaining to nutritional intake with 85% accuracy. Patient completed memory tasks pertaining to orientation with 90% accuracy. Assessment Assessment Current Status: Good Progress Treatment Plan Continue Plan of Care Speech Short Term Goals Short Term Goals Short Term Goals 1. Patient will complete memory tasks related to her daily needs with 90% or greater with minimal cues. 2. Patient will complete problem-solving tasks related to her daily needs with 90% or greater with minimal cues. 3. Patient will complete safety awareness tasks related to her daily needs with 90% or greater with minimal cues. Speech Residential Goals Licensed Prosthetist Goals Patient will improve cognitive-communication necessary for safety and daily living tasks with minimal assist. Speech-Plan Patient/Family Goals Patient/Family Goals: Patient reports wanting to return home and previous level of mobility and independence. Treatment Plan Speech Therapy Treatment Plan: Continue Plan of Care Treatment Duration: Sep 21, 2019 Frequency: 5 times per week Estimated Hrs Per Day: .5 hour per day Rehab Potential: Fair Barriers to Learning: Mild cognitive deficits, nutritional intake Pt/Family Agrees to Plan: Yes Safety Risks/Education Teaching Recipient: Patient Teaching Methods: Demonstration, Discussion Response to Teaching: Verbalize Understanding Education Topics Provided: Patient educated on continuation of safety awareness tasks and benefits. Time Speech Therapy Time In: 10:30 Speech Therapy Time Out: 11:00 Total Billed Time: 30 Billed Treatment Time RE [facility] Sep 14, 2019 14:05
[2019-09-14 18:00] VITALS: BP 132/78
[2019-09-15] MEDS: LEVOTHYROXINE 88 MCG (LEVOTHORID) TAB PO SCH (05:41)
[2019-09-15 06:10] VITALS: BP 124/74
[2019-09-15] MEDS: RIVAROXABAN 10 MG TABLET (XARELTO) PO SCH (08:16)
[2019-09-15] MEDS: POLYETHYLENE GLYCOL 17 GM (MIRALAX) PACK PO SCH ×2 (08:17→19:15)
[2019-09-15] MEDS: VITAMIN D3 5,000 UNITS (CHOLECALCIFEROL ) CAPSULE PO SCH (08:17)
[2019-09-15] MEDS: SENNA W/DOCUSATE (SENOKOT S) TABLET PO SCH ×2 (08:17→19:15)
[2019-09-15] MEDS: DOCUSATE SODIUM 100 MG (COLACE) CAP PO SCH ×2 (08:17→20:08)
--- NOTE | 2019-09-15 08:44 | Physical Therapy Daily Note ---
PT Daily Note-Current Subjective Pt. agrees to Rx. States she feels better and wants to sit up after Rx. Pain Location: No Pain Reported Mental Status Patient Orientation: Normal For Age Transfers SCALE: Activities may be completed with or without assistive devices. 1-Yrmgixytym-pwkvyzl completes the activity by him/herself with no assistance from a helper. 5-Set-up or Clean-up Assistance-helper sets up or cleans up; patient completes activity. [place] assists only prior to or following the activity. 4-Supervision or Touching Assistance-helper provides verbal cues and/or touching/steadying and/or contact guard assistance as patient completes activity. Assistance may be provided throughout the activity or intermittently. 3-Partial/Moderate Assistance-helper does LESS THAN HALF the effort. [place] lifts, holds or supports trunk or limbs, but provides less than half the effort. 2-Substantial/Maximal Assistance-helper does MORE THAN HALF the effort. [place] lifts or holds trunk or limbs and provides more than half the effort. 1-Qoftftgxz-kgjmnl does ALL the effort. Patient does none of the effort to complete the activity. Or, the assistance of 2 or more helpers is required for the patient to complete the activity. If activity was not attempted, code reason: 7-Patient Refused. 9-Not Applicable-not attempted and the patient did not perform the activity b efore the current illness, exacerbation or injury. 10-Not Attempted due to Environmental Limitations-(lack of equipment, weather restraints, etc.). 88-Not Attempted due to Medical Conditions or Safety Concerns. Roll Left & Right (QC): 5 Sit to Lying (QC): 5 Lying to Sitting/Side of Bed(Q: 5 Sit to Stand (QC): 5 Chair/Asj-fa-Igcje Xfer(QC): 5 Toilet Transfer (QC): 5 Weight Bearing Right Lower Extremity: Right Weight Bearing/Tolerated Left Lower Extremity: Left Full Weight Bearing Gait Training Does the Patient Walk?: Yes Walk 10 feet (QC): 5 Walk 50 ft with 2 Turns(QC): 5 Walk 150 ft (QC): 5 Gait Persons Needed: 1 Gait Assistive Device: FWW Stair Training Stair Training: Handrails/: 2 handrails #of Steps: 4 1 Step (curb) (QC): 4 4 Steps (QC): 4 Stairs: Pattern: Step to instruction in sequence and safety Exercises Supine Ex: Ankle pumps, Quad Set, Heel Slides, Hip abd/add Supine Reps: 8 Seated Therapy Exercises: Ankle pumps, Sit to stand, Long arc quads Seated Reps: 8 Treatments toileted SBA Assessment Current Status: Good Progress PT Short Term Goals Short Term Goals Time Frame: Sep 11, 2019 Roll Left & Right: 3 Sit to lyin Lying to sitting on side of be: 3 Sit to stand: 3 Chair/cax-or-pbioh transfer: 3 Walk 10 feet: 3 PT Senior Living Goals Family Helper Goals PT Family Helper Goals Time Frame: Sep 25, 2019 Roll Left & Right (QC): 6 Sit to Lying (QC): 6 Lying-Sitting on Side/Bed(QC): 6 Sit to Stand (QC): 4 Chair/Uox-ld-Ybmsi Xfer(QC): 4 Toilet Transfer (QC): 4 Car Transfer (QC): 3 Walk 10 feet (QC): 3 Walk 50ft with 2 Turns (QC): 3 Walk 150 ft (QC): 3 Walking 10ft on Uneven Surface: 3 1 Step (curb) (QC): 3 4 Steps (QC): 3 PT Plan Treatment/Plan Treatment Plan: Continue Plan of Care Treatment Plan: Bed Mobility, Education, Functional Activity Dexter, Functional Strength, Group Therapy, Gait, Safety, Therapeutic Exercise, Transfers Treatment Duration: Sep 25, 2019 Frequency: At least 5 of 7 days/Wk (IRF) Estimated Hrs Per Day: 1.5 hours per day Patient and/or Family Agrees t: Yes Safety Risks/Education Patient Education: Gait Training, Transfer Techniques, Steps, Correct Positioning, Disease Process, Safety Issues Teaching Recipient: Patient Teaching Methods: Demonstration, Discussion Response to Teaching: Verbalize Understanding, Return Demonstration, Reinforcement Needed Time/GCodes Time In: 740 Time Out: 805 Total Billed Treatment Time: 25 Total Billed Treatment 1,GT15m,FA10m MATILDA POLLARD ORACLE FUSION CONSULTANT Sep 15, 2019 08:44
--- NOTE | 2019-09-15 11:00 | NUR ---
FOLLOW UP APPOINTMENT WITH DR. HOUSTON ON TUESDAY WILL BE RESCHEDULED FOR NEXT WEEK AND WILL CHECK WITH HIM ON TUESDAY TO SEE IF WILLIE CAN BE REMOVED. PATIENT ADMITS APPETITE IS "NO BETTER". SHE ADMITS TO NOT KNOWING YET IF SHE WILL NEED TO GO TO AN ASSISTED LIVING FACILITY VS. HOME. WILL NEED WALKER AND TOILET RISER IF GOING HOME.
--- NOTE | 2019-09-15 11:28 | PM&R Progress Note ---
Subjective HPI/CC On Admission Date Seen by Provider: Sep 15, 2019 Time Seen by Provider: 11:00 Subjective/Events-last exam BM today Chronic appetite loss Ensure is consumed at meal time Will change appt with ortho surgeon Tuesday due to difficulty transporting and patient does not feel up to it No pain is reported other than hip which is well controlled Overall very slow but she's fragile and appears to be a major fall risk Checked meds and labs Previously therapy notes Conferred with subway conductor of Systems General: Fatigue Musculoskeletal: leg pain Objective Exam Vital Signs Vital Signs Date Time Temp Pulse Resp B/P (MAP) Pulse Ox O2 Delivery O2 Flow Rate FiO2 09/15/19 09:00 Room Air 09/15/19 06:10 36.8 85 18 124/74 (91) 91 Capillary Refill : Less Than 3 SecondsLess Than 3 Seconds General Appearance: No Apparent Distress, WD/WN, Chronically ill, Thin HEENT: PERRL/EOMI, Normal ENT Inspection, Pharynx Normal Neck: Full Range of Motion, Normal Inspection, Non Tender, Supple, Carotid Bruit Respiratory: Chest Non Tender, Lungs Clear, Normal Breath Sounds, No Accessory Muscle Use, No Respiratory Distress Cardiovascular: Regular Rate, Rhythm, No Edema, No Gallop, No JVD, No Murmur, Normal Peripheral Pulses Gastrointestinal: Normal Bowel Sounds, No Organomegaly, No Pulsatile Mass, Non Tender, Soft Back: Normal Inspection, Decreased Range of Motion Extremity: Normal Capillary Refill, Normal Inspection, Normal Range of Motion (right leg limited range of motion due to pain), Non Tender, No Calf Tenderness, No Pedal Edema Neurologic/Psychiatric: Alert, Oriented x3, No Motor/Sensory Deficits, Normal Mood/Affect, fire patrol II-XII Norm as Tested, Other (limited range of motion from right leg pain) Skin: Normal Color, Warm/Dry Lymphatic: No Adenopathy Results/Procedures Lab Patient resulted labs reviewed. FIM Transfers Therapy Code Descriptions/Definitions Functional [place] Measure: 0=Not Assessed/NA 4=Minimal Assistance 1=Total Assistance 5=Supervision or Setup 2=Maximal Assistance 6=Modified [place] 3=Moderate Assistance 7=Complete IndependenceSCALE: Activities may be completed with or without assistive devices. 2-Bxgcblksgd-hjsnrcp completes the activity by him/herself with no assistance from a helper. 5-Set-up or Clean-up Assistance-helper sets up or cleans up; patient completes activity. [place] assists only prior to or following the activity. 4-Supervision or Touching Assistance-helper provides verbal cues and/or touching/steadying and/or contact guard assistance as patient completes activity. Assistance may be provided throughout the activity or intermittently. 3-Partial/Moderate Assistance-helper does LESS THAN HALF the effort. [place] lifts, holds or supports trunk or limbs, but provides less than half the effort. 2-Substantial/Maximal Assistance-helper does MORE THAN HALF the effort. [place] lifts or holds trunk or limbs and provides more than half the effort. 7-Jaetrcrje-xflsdf does ALL the effort. Patient does none of the effort to complete the activity. Or, the assistance of 2 or more helpers is required for the patient to complete the activity. If activity was not attempted, code reason: 7-Patient Refused. 9-Not Applicable-not attempted and the patient did not perform the activity before the current illness, exacerbation or injury. 10-Not Attempted due to Environmental Limitations-(lack of equipment, weather restraints, etc.). 88-Not Attempted due to Medical Conditions or Safety Concerns. Roll Left to Right (QC): 5 Sit to Lying (QC): 5 Sit to Stand (QC): 5 Chair/Qxq-xu-Sqzlc Xfer(QC): 5 Gait Training Does the Patient Walk?: Yes Distance: 150' Walk 10 feet (QC): 5 Walk 50 ft with 2 Turns(QC): 5 Walk 150 ft (QC): 5 Gait Persons Needed: 1 Gait Assistive Device: FWW Wheelchair Training Does the Pt Use a Wheelchair?: Yes Wheel 50 ft with 2 turns (QC): 1 Wheel 150 ft (QC): 1 Type of Wheelchair: Manual Stair Training Stair Training: Handrails/: 2 handrails #of Steps: 4 1 Step (curb) (QC): 4 4 Steps (QC): 4 Stairs: Pattern: Step to Balance Picking up an Object (QC): 88 ADL-Treatment Eating (QC): 5 (water handed to pt.) Oral Hygiene (QC): 6 Shower/Bathe Self (QC): 5 (s/u shower, SBA in transfer) Upper Body Dressing (QC): 6 Lower Body Dressing (QC): 3 (Min A RLE undergarment donning with chassis driver. ) On/Off Footwear (QC): 6 (completes with sock aide.) Toileting Hygiene (QC): 6 (completes with IND at commode) Toilet Transfer (QC): 4 (SUP with FWW.) Assessment/Plan Assessment and Plan Assess & Plan/Chief Complaint Assessment: 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 Severe constipation narcotic induced managed on laxatives now Hypothyroidism Subtle confusion now cleared Fall risk Advanced age Poor nutritional intake acute on chronic Plan: Pain meds but decreased Monitor blood pressure Maintain bowel regimen Inpatient rehabilitation protocol 12/03 Doing well but very frail Likely will need AL or SNF Minimize pain meds (1) Closed right hip fracture Status: Acute (2) Hypothyroidism (3) Paget's disease (4) Osteoporosis (5) Falls (6) DVT prophylaxis (7) Anemia (8) Diverticulosis (9) Constipation (10) Incontinence (11) Advanced age (1) Closed right hip fracture Status: Acute (2) Hypothyroidism (3) Paget's disease (4) Osteoporosis (5) Falls (6) DVT prophylaxis (7) Anemia (8) Diverticulosis (9) Constipation (10) Incontinence (11) Advanced age (1) Closed right hip fracture Status: Acute (2) Hypothyroidism (3) Paget's disease (4) Osteoporosis (5) Falls (6) DVT prophylaxis (7) Anemia (8) Diverticulosis (9) Constipation (10) Incontinence (11) Advanced age PAUL PACHECO DO Sep 15, 2019 11:28
[2019-09-15 18:00] VITALS: BP 143/74
[2019-09-16 05:14] VITALS: BP 121/73
[2019-09-16] MEDS: LEVOTHYROXINE 88 MCG (LEVOTHORID) TAB PO SCH (05:15)
[2019-09-16] MEDS: VITAMIN D3 5,000 UNITS (CHOLECALCIFEROL ) CAPSULE PO SCH (09:00)
[2019-09-16] MEDS: RIVAROXABAN 10 MG TABLET (XARELTO) PO SCH (09:00)
[2019-09-16] MEDS: POLYETHYLENE GLYCOL 17 GM (MIRALAX) PACK PO SCH ×2 (09:06→19:13)
[2019-09-16] MEDS: SENNA W/DOCUSATE (SENOKOT S) TABLET PO SCH ×2 (09:07→19:14)
[2019-09-16] MEDS: DOCUSATE SODIUM 100 MG (COLACE) CAP PO SCH ×2 (09:15→19:13)
--- NOTE | 2019-09-16 09:15 | NUR ---
REQUESTED TO SLEEP IN THIS AM. NOW ASSISTED UP TO BATHROOM AND RIGHT LEG VERY PAINFUL. AFTER UP MOVING AROUND AND MEDICATED WITH LORTAB, PAIN HAS IMPROVED.
[2019-09-16] MEDS: HYDROcodone/APAP 5 MG/325 MG (LORTAB) TAB PO PRN (09:16)
--- NOTE | 2019-09-16 15:12 | PM&R Progress Note ---
Subjective HPI/CC On Admission Date Seen by Provider: Sep 16, 2019 Time Seen by Provider: 12:15 Subjective/Events-last exam BM regular now and takes Colace and that helps the most Chronic appetite loss Ensure is consumed at meal time Will change appt with ortho surgeon Tuesday due to difficulty transporting and patient does not feel up to it No pain is reported other than hip which is well controlled on rare use of Lort ab now Overall very slow but she's fragile and appears to be a major fall risk Checked meds and labs Previously therapy notes Conferred with process improvement specialist of Systems General: Fatigue Musculoskeletal: leg pain Objective Exam Vital Signs Vital Signs Date Time Temp Pulse Resp B/P (MAP) Pulse Ox O2 Delivery O2 Flow Rate FiO2 09/16/19 09:00 Room Air 09/16/19 05:14 36.6 81 16 121/73 (89) 93 Capillary Refill : Less Than 3 SecondsLess Than 3 Seconds General Appearance: No Apparent Distress, WD/WN, Chronically ill, Thin HEENT: PERRL/EOMI, Normal ENT Inspection, Pharynx Normal Neck: Full Range of Motion, Normal Inspection, Non Tender, Supple, Carotid Bruit Respiratory: Chest Non Tender, Lungs Clear, Normal Breath Sounds, No Accessory Muscle Use, No Respiratory Distress Cardiovascular: Regular Rate, Rhythm, No Edema, No Gallop, No JVD, No Murmur, Normal Peripheral Pulses Gastrointestinal: Normal Bowel Sounds, No Organomegaly, No Pulsatile Mass, Non Tender, Soft Back: Normal Inspection, Decreased Range of Motion Extremity: Normal Capillary Refill, Normal Inspection, Normal Range of Motion (right leg limited range of motion due to pain), Non Tender, No Calf Tenderness, No Pedal Edema Neurologic/Psychiatric: Alert, Oriented x3, No Motor/Sensory Deficits, Normal Mood/Affect, line maintenance supervisor II-XII Norm as Tested, Other (limited range of motion from right leg pain) Skin: Normal Color, Warm/Dry Lymphatic: No Adenopathy Results/Procedures Lab Patient resulted labs reviewed. FIM Transfers Therapy Code Descriptions/Definitions Functional [place] Measure: 0=Not Assessed/NA 4=Minimal Assistance 1=Total Assistance 5=Supervision or Setup 2=Maximal Assistance 6=Modified [place] 3=Moderate Assistance 7=Complete IndependenceSCALE: Activities may be completed with or without assistive devices. 6-Nlfnibvetz-riiasdo completes the activity by him/herself with no assistance from a helper. 5-Set-up or Clean-up Assistance-helper sets up or cleans up; patient completes activity. [place] assists only prior to or following the activity. 4-Supervision or Touching Assistance-helper provides verbal cues and/or touching/steadying and/or contact guard assistance as patient completes activity. Assistance may be provided throughout the activity or intermittently. 3-Partial/Moderate Assistance-helper does LESS THAN HALF the effort. [place] lifts, holds or supports trunk or limbs, but provides less than half the effort. 2-Substantial/Maximal Assistance-helper does MORE THAN HALF the effort. [place] lifts or holds trunk or limbs and provides more than half the effort. 4-Yjpfhpwok-xethxt does ALL the effort. Patient does none of the effort to complete the activity. Or, the assistance of 2 or more helpers is required for the patient to complete the activity. If activity was not attempted, code reason: 7-Patient Refused. 9-Not Applicable-not attempted and the patient did not perform the activity before the current illness, exacerbation or injury. 10-Not Attempted due to Environmental Limitations-(lack of equipment, weather restraints, etc.). 88-Not Attempted due to Medical Conditions or Safety Concerns. Roll Left to Right (QC): 5 Sit to Lying (QC): 5 Sit to Stand (QC): 5 Chair/Hwk-qc-Rdkbt Xfer(QC): 5 Gait Training Does the Patient Walk?: Yes Distance: 150' Walk 10 feet (QC): 5 Walk 50 ft with 2 Turns(QC): 5 Walk 150 ft (QC): 5 Gait Persons Needed: 1 Gait Assistive Device: FWW Wheelchair Training Does the Pt Use a Wheelchair?: Yes Wheel 50 ft with 2 turns (QC): 1 Wheel 150 ft (QC): 1 Type of Wheelchair: Manual Stair Training Stair Training: Handrails/: 2 handrails #of Steps: 4 1 Step (curb) (QC): 4 4 Steps (QC): 4 Stairs: Pattern: Step to Balance Picking up an Object (QC): 88 ADL-Treatment Eating (QC): 5 (water handed to pt.) Oral Hygiene (QC): 6 Shower/Bathe Self (QC): 5 (s/u shower, SBA in transfer) Upper Body Dressing (QC): 6 Lower Body Dressing (QC): 3 (Min A RLE undergarment donning with inner tube inserter. ) On/Off Footwear (QC): 6 (completes with sock aide.) Toileting Hygiene (QC): 6 (completes with IND at commode) Toilet Transfer (QC): 4 (SUP with FWW.) Assessment/Plan Assessment and Plan Assess & Plan/Chief Complaint Assessment: 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 Severe constipation narcotic induced managed on laxatives now Hypothyroidism Subtle confusion now cleared Fall risk Advanced age Poor nutritional intake acute on chronic Plan: Pain meds but decreased Monitor blood pressure Maintain bowel regimen Inpatient rehabilitation protocol 12/03 Doing well but very frail Likely will need AL or SNF Minimize pain meds is successful (1) Closed right hip fracture Status: Acute (2) Hypothyroidism (3) Paget's disease (4) Osteoporosis (5) Falls (6) DVT prophylaxis (7) Anemia (8) Diverticulosis (9) Constipation (10) Incontinence (11) Advanced age (1) Closed right hip fracture Status: Acute (2) Hypothyroidism (3) Paget's disease (4) Osteoporosis (5) Falls (6) DVT prophylaxis (7) Anemia (8) Diverticulosis (9) Constipation (10) Incontinence (11) Advanced age (1) Closed right hip fracture Status: Acute (2) Hypothyroidism (3) Paget's disease (4) Osteoporosis (5) Falls (6) DVT prophylaxis (7) Anemia (8) Diverticulosis (9) Constipation (10) Incontinence (11) Advanced age PAUL PACHECO DO Sep 16, 2019 15:12
[2019-09-16 17:29] VITALS: BP 126/73
--- NOTE | 2019-09-16 18:00 | NUR ---
NO FURTHER COMPLAINTS OF PAIN. UP IN CHAIR QUITE A BIT OF DAY. AMBULATED IN [place] WITH [facility]. COMPANY VISITED.
[2019-09-17] MEDS: HYDROcodone/APAP 5 MG/325 MG (LORTAB) TAB PO PRN (00:19)
[2019-09-17 05:00] VITALS: BP 147/71
[2019-09-17 05:00] LABS: BASOPHILS # (AUTO) 0.1 10^3/uL (0.0-0.1); BASOPHILS % (AUTO) 1 % (0-10); EOSINOPHILS # (AUTO) 0.5 10^3/uL (0.0-0.3); EOSINOPHILS % (AUTO) 7 % (0-10); HEMATOCRIT 38 % (35-52); HEMOGLOBIN 12.3 G/DL (11.5-16.0); LYMPHOCYTES # (AUTO) 2.1 X 10^3 (1.0-4.0); LYMPHOCYTES % (AUTO) 29 % (12-44); MEAN CORPUSCULAR HEMOGLOBIN 30 PG (25-34); MEAN CORPUSCULAR HGB CONC 33 G/DL (32-36); MEAN CORPUSCULAR VOLUME 90 FL (80-99); MEAN PLATELET VOLUME 10.3 FL (7.4-10.4); MONOCYTES # (AUTO) 0.6 X 10^3 (0.0-1.0); MONOCYTES % (AUTO) 9 % (0-12); NEUTROPHILS % (AUTO) 55 % (42-75); PLATELET COUNT 308 10^3/uL (130-400); RED CELL DISTRIBUTION WIDTH 14.4 % (10.0-14.5); WHITE BLOOD COUNT 7.4 10^3/uL (4.3-11.0)
[2019-09-17 05:33] LABS: ALBUMIN 3.3 GM/DL (3.2-4.5); BILIRUBIN,TOTAL 0.4 MG/DL (0.1-1.0); CALCIUM 9.2 MG/DL (8.5-10.1); CREATININE SERUM 1.37 MG/DL (0.60-1.30); POTASSIUM 4.2 MMOL/L (3.6-5.0); TOTAL PROTEIN 6.3 GM/DL (6.4-8.2)
[2019-09-17] MEDS: LEVOTHYROXINE 88 MCG (LEVOTHORID) TAB PO SCH (05:41)
--- NOTE | 2019-09-17 07:53 | NUR ---
Call placed to Dr. Dowling's office, pt's orthopedic surgeon, to cancel pt's appt today at 10:00. Left message that pt is still here on ARU, & requested new appt, & instructions/orders regarding belem.
--- NOTE | 2019-09-17 08:33 | PM&R Progress Note ---
Subjective HPI/CC On Admission Date Seen by Provider: Sep 17, 2019 Time Seen by Provider: 08:45 Subjective/Events-last exam Pt doing pretty well Denies any significant increased pain Needs minimal help getting up and moving around Eating better 75% of her meals Lortab one half twice daily is pretty much on schedule Changed her ortho appointment today to after she is discharged Checked meds and labs Previously therapy notes Conferred with hospitality manager of Systems Musculoskeletal: leg pain Objective Exam Vital Signs Vital Signs Date Time Temp Pulse Resp B/P (MAP) Pulse Ox O2 Delivery O2 Flow Rate FiO2 09/17/19 17:58 36.4 79 20 146/79 (101) 98 Room Air Capillary Refill : Less Than 3 SecondsLess Than 3 Seconds General Appearance: No Apparent Distress, WD/WN, Chronically ill, Thin HEENT: PERRL/EOMI, Normal ENT Inspection, Pharynx Normal Neck: Full Range of Motion, Normal Inspection, Non Tender, Supple, Carotid Bruit Respiratory: Chest Non Tender, Lungs Clear, Normal Breath Sounds, No Accessory Muscle Use, No Respiratory Distress Cardiovascular: Regular Rate, Rhythm, No Edema, No Gallop, No JVD, No Murmur, Normal Peripheral Pulses Gastrointestinal: Normal Bowel Sounds, No Organomegaly, No Pulsatile Mass, Non Tender, Soft Back: Normal Inspection, Decreased Range of Motion Extremity: Normal Capillary Refill, Normal Inspection, Normal Range of Motion (right leg limited range of motion due to pain), Non Tender, No Calf Tenderness, No Pedal Edema Neurologic/Psychiatric: Alert, Oriented x3, No Motor/Sensory Deficits, Normal Mood/Affect, rubber cutter and shape 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 FIM Transfers Therapy Code Descriptions/Definitions Functional [place] Measure: 0=Not Assessed/NA 4=Minimal Assistance 1=Total Assistance 5=Supervision or Setup 2=Maximal Assistance 6=Modified [place] 3=Moderate Assistance 7=Complete IndependenceSCALE: Activities may be completed with or without assistive devices. 0-Jqmwshrijr-vjsyrir completes the activity by him/herself with no assistance from a helper. 5-Set-up or Clean-up Assistance-helper sets up or cleans up; patient completes activity. [place] assists only prior to or following the activity. 4-Supervision or Touching Assistance-helper provides verbal cues and/or touching/steadying and/or contact guard assistance as patient completes activity. Assistance may be provided throughout the activity or intermittently. 3-Partial/Moderate Assistance-helper does LESS THAN HALF the effort. [place] lifts, holds or supports trunk or limbs, but provides less than half the effort. 2-Substantial/Maximal Assistance-helper does MORE THAN HALF the effort. [place] lifts or holds trunk or limbs and provides more than half the effort. 5-Xsytskjjc-awmnfz does ALL the effort. Patient does none of the effort to complete the activity. Or, the assistance of 2 or more helpers is required for the patient to complete the activity. If activity was not attempted, code reason: 7-Patient Refused. 9-Not Applicable-not attempted and the patient did not perform the activity before the current illness, exacerbation or injury. 10-Not Attempted due to Environmental Limitations-(lack of equipment, weather restraints, etc.). 88-Not Attempted due to Medical Conditions or Safety Concerns. Roll Left to Right (QC): 5 Sit to Lying (QC): 5 Sit to Stand (QC): 5 Chair/Yab-yz-Gygvs Xfer(QC): 5 Gait Training Does the Patient Walk?: Yes Distance: 150' Walk 10 feet (QC): 5 Walk 50 ft with 2 Turns(QC): 5 Walk 150 ft (QC): 5 Gait Persons Needed: 1 Gait Assistive Device: FWW Wheelchair Training Does the Pt Use a Wheelchair?: Yes Wheel 50 ft with 2 turns (QC): 1 Wheel 150 ft (QC): 1 Type of Wheelchair: Manual Stair Training Stair Training: Handrails/: 2 handrails #of Steps: 4 1 Step (curb) (QC): 4 4 Steps (QC): 4 Stairs: Pattern: Step to Balance Picking up an Object (QC): 88 ADL-Treatment Eating (QC): 5 (water handed to pt.) Oral Hygiene (QC): 6 Shower/Bathe Self (QC): 5 (s/u shower, SBA in transfer) Upper Body Dressing (QC): 6 Lower Body Dressing (QC): 3 (Min A RLE undergarment donning with correspondence school teacher. ) On/Off Footwear (QC): 6 (completes with sock aide.) Toileting Hygiene (QC): 6 (completes with IND at commode) Toilet Transfer (QC): 4 (SUP with FWW.) Assessment/Plan Assessment and Plan Assess & Plan/Chief Complaint Assessment: 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 Severe constipation narcotic induced managed on laxatives now Hypothyroidism Subtle confusion now cleared Fall risk Advanced age Poor nutritional intake acute on chronic Plan: Pain meds but decreased Monitor blood pressure Maintain bowel regimen Inpatient rehabilitation protocol 12/03 Doing well but very frail Likely will need AL or SNF Minimize pain meds is successful (1) Closed right hip fracture Status: Acute (2) Hypothyroidism (3) Paget's disease (4) Osteoporosis (5) Falls (6) DVT prophylaxis (7) Anemia (8) Diverticulosis (9) Constipation (10) Incontinence (11) Advanced age (1) Closed right hip fracture Status: Acute (2) Hypothyroidism (3) Paget's disease (4) Osteoporosis (5) Falls (6) DVT prophylaxis (7) Anemia (8) Diverticulosis (9) Constipation (10) Incontinence (11) Advanced age (1) Closed right hip fracture Status: Acute (2) Hypothyroidism (3) Paget's disease (4) Osteoporosis (5) Falls (6) DVT prophylaxis (7) Anemia (8) Diverticulosis (9) Constipation (10) Incontinence (11) Advanced age PAUL PACHECO DO Sep 17, 2019 08:33
[2019-09-17] MEDS: RIVAROXABAN 10 MG TABLET (XARELTO) PO SCH (08:55)
[2019-09-17] MEDS: VITAMIN D3 5,000 UNITS (CHOLECALCIFEROL ) CAPSULE PO SCH (08:55)
[2019-09-17] MEDS: DOCUSATE SODIUM 100 MG (COLACE) CAP PO SCH ×2 (08:55→20:17)
[2019-09-17] MEDS: SENNA W/DOCUSATE (SENOKOT S) TABLET PO SCH ×2 (08:56→20:17)
[2019-09-17] MEDS: POLYETHYLENE GLYCOL 17 GM (MIRALAX) PACK PO SCH ×2 (08:56→20:17)
--- NOTE | 2019-09-17 09:03 | Occupational Ther Daily Note ---
OT Current Status-Daily Note Subjective Pt seen in bed, pt agreeable to OT tx session. Pt denies pain, but states "stiffness" in R inner groin. Mental Status/Objective Patient Orientation: Person, Place, Situation, Normal For Age ADL-Treatment Therapy Code Descriptions/Definitions Functional [place] Measure: 0=Not Assessed/NA 4=Minimal Assistance 1=Total Assistance 5=Supervision or Setup 2=Maximal Assistance 6=Modified [place] 3=Moderate Assistance 7=Complete IndependenceSCALE: Activities may be completed with or without assistive devices. 9-Uukrgkjjpm-gqlgfjj completes the activity by him/herself with no assistance from a helper. 5-Set-up or Clean-up Assistance-helper sets up or cleans up; patient completes activity. [place] assists only prior to or following the activity. 4-Supervision or Touching Assistance-helper provides verbal cues and/or touching/steadying and/or contact guard assistance as patient completes activity. Assistance may be provided throughout the activity or intermittently. 3-Partial/Moderate Assistance-helper does LESS THAN HALF the effort. [place] lifts, holds or supports trunk or limbs, but provides less than half the effort. 2-Substantial/Maximal Assistance-helper does MORE THAN HALF the effort. [place] lifts or holds trunk or limbs and provides more than half the effort. 3-Ddijbbpzk-dshabh does ALL the effort. Patient does none of the effort to complete the activity. Or, the assistance of 2 or more helpers is required for the patient to complete the activity. If activity was not attempted, code reason: 7-Patient Refused. 9-Not Applicable-not attempted and the patient did not perform the activity before the current illness, exacerbation or injury. 10-Not Attempted due to Environmental Limitations-(lack of equipment, weather restraints, etc.). 88-Not Attempted due to Medical Conditions or Safety Concerns. Eating (QC): 6 Oral Hygiene (QC): 6 Shower/Bathe Self (QC): 4 (sponge bath in recliner chair, completes all areas with SUP) Upper Body Dressing (QC): 6 Lower Body Dressing (QC): 6 (Completes undergarments with IND within recliner chair/ at FWW level.) On/Off Footwear: 5 (s/u for use of sock aide for R LE) Toileting Hygiene (QC): 6 Toilet Transfer (QC): 6 (use of FWW to commode.) Other Treatment Pt completes bed mob with increased time and HOB elevated. Pt completes sit to stand with SBA to FWW, states need for bathroom. Pt completes BM and urination on commode. Pt completes oral hygiene and hair brushing with IND in front of sink. Pt states that she lives with son, son not nor children present, states she plans to live with son for a while longer and may "become permanent." Pt completes grooming/ dressing in recliner chair, AE present. Pt completes UE theraband ex in recliner chair with yellow theraband (1 set of 10 bilaterally)- shoulder flexion, back flies, shoulder scaption. Pt states she needs to work more on functional mobility tasks, states sister can loan pt a walker. Pt left in recliner with call light in reach, all needs met, nursing present. Education OT Patient Education: Correct positioning, Exercise program, Home exercise program, Modified ADL techniques Teaching Recipient: Patient Teaching Methods: Demonstration, Discussion Response to Teaching: Verbalize Understanding, Return Demonstration OT Short Term Goals Short Term Goals Time Frame: Sep 11, 2019 Eatin Oral hygiene: 5 Toileting hygiene: 4 Shower/bathe self: 3 Upper body dressin Lower body dressin Putting on/taking off footwear: 3 OT Protective Signal Superintendent Goals Protective Signal Superintendent Goals Time Frame: Sep 18, 2019 Eating (QC): 6 Oral Hygiene (QC): 6 Toileting Hygiene (QC): 5 Shower/Bathe Self (QC): 5 Upper Body Dressing (QC): 5 Lower Body Dressing (QC): 5 On/Off Footwear (QC): 5 Additional Goals: 1-Demonstrate ADL Tasks, 2-Verbalize Understanding, 3-Impro veStrength/[place] 1=Demonstrate adherence to instructed precautions during ADL tasks. 2=Patient will verbalize/demonstrate understanding of assistive devices/modifications for ADL. 3=Patient will improve strength/tolerance for activity to enable patient to perform ADL's. OT Education/Plan Problem List/Assessment Assessment: Decreased Activ Tolerance, Decreased UE Strength, Impaired I ADL's Discharge Recommendations Plan/Recommendations: Continue POC Therapy Discharge Recommendati: Home & Family Treatment Plan/Plan of Care Treatment,Training & Education: Yes Patient would benefit from OT for education, treatment and training to promote independence in ADL's, mobility, safety and/or upper extremity function for ADL's. Plan of Care: ADL Retraining, Functional Mobility, Group Exercise/Act as Ind, UE Funct Exercise/Act Treatment Duration: Sep 18, 2019 Frequency: 5 times per week Estimated Hrs Per Day: 1.5 hours per day Agreement: Yes Rehab Potential: Fair Time/GCodes Start Time: 08:00 Stop Time: 09:00 Total Time Billed (hr/min): 60 Billed Treatment Time 1, ADL 4 (60) VIKASH MARCOS OTR Sep 17, 2019 09:03
--- NOTE | 2019-09-17 10:02 | Physical Therapy Daily Note ---
PT Daily Note-Current Subjective Pt agreeable to PT session. Pain Numeric Pain Scale: 0-No Pain Comment: states does increase in R hip moving it to the side Appearance Upon arrival, pt sitting up in recliner awake and alert. At end of session, per pt request, pt sitting up in recliner with call light, phone and bedside table within reach. Pt assisted with positioning KPAD heating pad R ant groin/hip flexor region to assist in decreasing pain and tightness. Mental Status Patient Orientation: Person, Place, Time, Eyes Open, Situation Attachments: Other-See Comments (KPAD heating pad) Transfers SCALE: Activities may be completed with or without assistive devices. 1-Vbneionacg-crnuvwj completes the activity by him/herself with no assistance from a helper. 5-Set-up or Clean-up Assistance-helper sets up or cleans up; patient completes activity. [place] assists only prior to or following the activity. 4-Supervision or Touching Assistance-helper provides verbal cues and/or touching/steadying and/or contact guard assistance as patient completes activ ity. Assistance may be provided throughout the activity or intermittently. 3-Partial/Moderate Assistance-helper does LESS THAN HALF the effort. [place] lifts, holds or supports trunk or limbs, but provides less than half the effort. 2-Substantial/Maximal Assistance-helper does MORE THAN HALF the effort. [place] lifts or holds trunk or limbs and provides more than half the effort. 4-Zmwynpatj-gcqdmi does ALL the effort. Patient does none of the effort to complete the activity. Or, the assistance of 2 or more helpers is required for the patient to complete the activity. If activity was not attempted, code reason: 7-Patient Refused. 9-Not Applicable-not attempted and the patient did not perform the activity before the current illness, exacerbation or injury. 10-Not Attempted due to Environmental Limitations-(lack of equipment, weather restraints, etc.). 88-Not Attempted due to Medical Conditions or Safety Concerns. Roll Left & Right (QC): 3 Sit to Lying (QC): 3 Lying to Sitting/Side of Bed(Q: 3 Sit to Stand (QC): 5 physical A required with RLE in and out of bed and during bed mobility due to report of too weakness and pain in R hip flexors/adductors with movement. Min verb inst required for hand placement and safety during transitions Weight Bearing Right Lower Extremity: Right Weight Bearing/Tolerated Left Lower Extremity: Left Full Weight Bearing Gait Training Does the Patient Walk?: Yes Walk 10 feet (QC): 4 Walk 50 ft with 2 Turns(QC): 4 Walk 150 ft (QC): 4 Gait Persons Needed: 1 Gait Assistive Device: FWW slow pace, step through gait pattern but uneven step lengths, slight antalgic with decreased stance time RLE, pt able to follow inst to decrease R hip IR Exercises Supine Ex: Hip abd/add (resistance eliminated, AROM to AAROM RLE) Supine Reps: 10 Seated Therapy Exercises: Ankle pumps, Sit to stand, Long arc quads, Hip abd/add (knees bent, knees extended with resistance eliminated) Seated Reps: 15 ((+) R hip ER) Standing: Hip Abduction (x5 very painful R hip flexors and adductors), Marching (high knee), Sit to Stand, Weight shifts Standing Reps: 15 NuStep Minutes: 10 NuStep Workload: 5 (seat 9, Arms 8, slow) Treatments education, safety, transfers, bed mobility, gait, strength, balance, functional mobility, activity tolerance Assessment Pt continues with pain in R hip flexors/adductors with all movements and activity, no pain at rest PT Short Term Goals Short Term Goals Time Frame: Sep 11, 2019 Roll Left & Right: 3 Sit to lyin Lying to sitting on side of be: 3 Sit to stand: 3 Chair/otu-oc-ldiru transfer: 3 Walk 10 feet: 3 PT Personnel Officer Goals Usp Goals PT Usp Goals Time Frame: Sep 25, 2019 Roll Left & Right (QC): 6 Sit to Lying (QC): 6 Lying-Sitting on Side/Bed(QC): 6 Sit to Stand (QC): 4 Chair/Gjy-bh-Dnvdm Xfer(QC): 4 Toilet Transfer (QC): 4 Car Transfer (QC): 3 Walk 10 feet (QC): 3 Walk 50ft with 2 Turns (QC): 3 Walk 150 ft (QC): 3 Walking 10ft on Uneven Surface: 3 1 Step (curb) (QC): 3 4 Steps (QC): 3 PT Plan Treatment/Plan Treatment Plan: Continue Plan of Care Treatment Plan: Bed Mobility, Education, Functional Activity [place], Functional Strength, Group Therapy, Gait, Safety, Therapeutic Exercise, Transfers Treatment Duration: Sep 25, 2019 Frequency: At least 5 of 7 days/Wk (IRF) Estimated Hrs Per Day: 1.5 hours per day Patient and/or Family Agrees t: Yes Safety Risks/Education Patient Education: Gait Training, Transfer Techniques, Reviewed Precautions, Correct Positioning, Disease Process, Safety Issues Teaching Recipient: Patient Teaching Methods: Demonstration, Discussion Response to Teaching: Verbalize Understanding, Return Demonstration Time/GCodes Time In: 956 Time Out: 1044 Total Billed Treatment Time: 48 Total Billed Treatment 1 visit, GT x17 min, EX x31 min YARY COLBERT PTA Sep 17, 2019 10:02
--- NOTE | 2019-09-17 10:25 | Progress Note ---
[facility] 09/17/19 1025: Progress Note Discharge Considerations Adela is an 89 year old frail woman that has been participating in rehab for a broken hip since September 05. As of today, patient is unable to engage in ADLs without assistance. She is able to walk with a walker if assisted, needs assistance for toileting, transferring, dressing and bathing. She is able to eat on her own and denies any nausea and vomiting associated with eating, however patient reports lack of desire for food that upon interview was determined to be a chronic issue. Pain is under control. Patients bowels are moving. Patient will require continued assistance and consideration for adequate nutrition and continued fall risk. . Assessment needs to be made to determine if patient will benefit from continuing rehab or if it is appropriate for transfer to an assisted living facility at this time. ARELI PACHECO DO 09/17/192039: Supervisory-Addendum Brief Verification & Attestation Participated in pt care: history, MDM, physical Personally performed: exam, history, MDM, supervision of care Care discussed with: Medical Student Procedures: n/a Results interpretation: Verified all documentation Verification and Attestation of Medical Student E/M Service A medical student performed and documented this service in my presence. I reviewed and verified all information documented by the medical student and made modifications to such information, when appropriate. I personally performed the physical exam and medical decision making. Areli Pacheco, Sep 17, 2019,20:40 [facility] Sep 17, 2019 10:25 ARELI PACHECO DO Sep 17, 2019 20:40
--- NOTE | 2019-09-17 14:21 | Therapy Group Daily Note ---
Therapy Daily Group Note Patient Education Topic Home Safety, Fall Prevention, Home Safety, Energy Cons, Exercises, ADL Exercises LE Seated Exercise, Walking, UE Exercise Session Ratio (pt:therapist): 3:1 Goal of Session: Home Safety Strategies, UE/LE Strengthing Goal Met for this Session: Yes Pt Benefit of Group: Contributions to Others, F/U Use of Strategies @Home, Increased Functional Safety, Increased Functional Strength, Improved Cognition, Recognition of Peers, Socialization Other/Notes Pt ambulated SBA-CGA with FWW to/from OT/PT group. Group consisted of introductions (name, place living, what to do on a cold day), socialization, seat UE/LE exercises and educational topics on home safety. Pt introduced self appropriately and actively listened to peers. Pt participated fully in group and contributed to conversation. Pt was able to lead group in one exercise then completed other exercises while each pt lead exercise. Pt verbalized understanding of educational topics by giving own experiences and answering questions accurately. After therapy, pt requesting and assisted to bathroom with call light within reach, water running, nursing notified of pt's concern of dressing on R hip coming off. Start Time: 13:00 Stop Time: 14:00 Total Billed Treatment Time: 60 Total Billed Treatment 1 visit, GRP x60 min YARY COLBERT PTA Sep 17, 2019 14:21
--- NOTE | 2019-09-17 14:42 | Speech Therapy Daily Note ---
Speech Daily Progress Note Subjective Date Seen by Provider: Sep 17, 2019 Time Seen by Provider: 11:15 Patient was alert and cooperative for all therapy tasks. Patient reported that she was feeling a little more tired than usual today. Additionally, patient reported that she was unable to follow her snack schedule this morning but will follow through this afternoon. Objective Patient completed safety awareness tasks pertaining to medicine management with 90% accuracy. Assessment Assessment Current Status: Good Progress Treatment Plan Continue Plan of Care Speech Short Term Goals Short Term Goals Short Term Goals 1. Patient will complete memory tasks related to her daily needs with 90% or greater with minimal cues. 2. Patient will complete problem-solving tasks related to her daily needs with 90% or greater with minimal cues. 3. Patient will complete safety awareness tasks related to her daily needs with 90% or greater with minimal cues. Speech Emotionally Impaired Teacher Goals [facility] Goals Patient will improve cognitive-communication necessary for safety and daily living tasks with minimal assist. Speech-Plan Patient/Family Goals Patient/Family Goals: Patient reported that she wishes to return home to previous level of mobility and independence. Treatment Plan Speech Therapy Treatment Plan: Continue Plan of Care Treatment Duration: Sep 21, 2019 Frequency: 4 times per week Estimated Hrs Per Day: .5 hour per day Rehab Potential: Fair Barriers to Learning: Mild cognitive deficits Pt/Family Agrees to Plan: Yes Safety Risks/Education Teaching Recipient: Patient Teaching Methods: Demonstration, Discussion Response to Teaching: Verbalize Understanding Education Topics Provided: Patient reported understanding safety awareness precautions needed to return home. Time Speech Therapy Time In: 11:15 Speech Therapy Time Out: 11:45 Total Billed Time: 30 Billed Treatment Time [address]RE [address] Sep 17, 2019 14:42
[2019-09-17 17:58] VITALS: BP 146/79
[2019-09-18 05:05] VITALS: BP 145/84
[2019-09-18] MEDS: LEVOTHYROXINE 88 MCG (LEVOTHORID) TAB PO SCH (06:44)
[2019-09-18] MEDS: VITAMIN D3 5,000 UNITS (CHOLECALCIFEROL ) CAPSULE PO SCH (08:13)
[2019-09-18] MEDS: RIVAROXABAN 10 MG TABLET (XARELTO) PO SCH (08:13)
[2019-09-18] MEDS: DOCUSATE SODIUM 100 MG (COLACE) CAP PO SCH ×2 (08:15→20:22)
[2019-09-18] MEDS: SENNA W/DOCUSATE (SENOKOT S) TABLET PO SCH ×2 (08:15→20:22)
[2019-09-18] MEDS: POLYETHYLENE GLYCOL 17 GM (MIRALAX) PACK PO SCH ×2 (08:18→20:22)
--- NOTE | 2019-09-18 09:57 | PM&R Progress Note ---
Subjective HPI/CC On Admission Date Seen by Provider: Sep 18, 2019 Time Seen by Provider: 09:00 Subjective/Events-last exam Pt doing pretty well today. Rescheduled her orthopedic surgery appointment for 09/24/19. Bowels are moving. Pain is pretty well controlled. Incision looks good. Elbow abrasion much improved. No Lortab for the past 24 hours. Checked meds and labs Previously therapy notes Conferred with aerospace stress engineer of Systems General: Fatigue Musculoskeletal: leg pain Objective Exam Vital Signs Vital Signs Date Time Temp Pulse Resp B/P (MAP) Pulse Ox O2 Delivery O2 Flow Rate FiO2 09/18/19 18:21 36.7 87 20 147/71 (96) 98 Room Air Capillary Refill : Less Than 3 SecondsLess Than 3 Seconds General Appearance: No Apparent Distress, WD/WN, Chronically ill, Thin HEENT: PERRL/EOMI, Normal ENT Inspection, Pharynx Normal Neck: Full Range of Motion, Normal Inspection, Non Tender, Supple, Carotid Bruit Respiratory: Chest Non Tender, Lungs Clear, Normal Breath Sounds, No Accessory Muscle Use, No Respiratory Distress Cardiovascular: Regular Rate, Rhythm, No Edema, No Gallop, No JVD, No Murmur, Normal Peripheral Pulses Gastrointestinal: Normal Bowel Sounds, No Organomegaly, No Pulsatile Mass, Non Tender, Soft Back: Normal Inspection, Decreased Range of Motion Extremity: Normal Capillary Refill, Normal Inspection, Normal Range of Motion (right leg limited range of motion due to pain), Non Tender, No Calf Tenderness, No Pedal Edema Neurologic/Psychiatric: Alert, Oriented x3, No Motor/Sensory Deficits, Normal Mood/Affect, visual merchandise manager II-XII Norm as Tested, Other (limited range of motion from right leg pain) Skin: Normal Color, Warm/Dry Lymphatic: No Adenopathy Results/Procedures Lab Patient resulted labs reviewed. FIM Transfers Therapy Code Descriptions/Definitions Functional [place] Measure: 0=Not Assessed/NA 4=Minimal Assistance 1=Total Assistance 5=Supervision or Setup 2=Maximal Assistance 6=Modified [place] 3=Moderate Assistance 7=Complete IndependenceSCALE: Activities may be completed with or without assistive devices. 5-Dwpkyyjkyr-rsybvzs completes the activity by him/herself with no assistance from a helper. 5-Set-up or Clean-up Assistance-helper sets up or cleans up; patient completes activity. [place] assists only prior to or following the activity. 4-Supervision or Touching Assistance-helper provides verbal cues and/or touching/steadying and/or contact guard assistance as patient completes activity. Assistance may be provided throughout the activity or intermittently. 3-Partial/Moderate Assistance-helper does LESS THAN HALF the effort. [place] lifts, holds or supports trunk or limbs, but provides less than half the effort. 2-Substantial/Maximal Assistance-helper does MORE THAN HALF the effort. [place] lifts or holds trunk or limbs and provides more than half the effort. 1-Isqdgpthk-stsesv does ALL the effort. Patient does none of the effort to complete the activity. Or, the assistance of 2 or more helpers is required for the patient to complete the activity. If activity was not attempted, code reason: 7-Patient Refused. 9-Not Applicable-not attempted and the patient did not perform the activity before the current illness, exacerbation or injury. 10-Not Attempted due to Environmental Limitations-(lack of equipment, weather restraints, etc.). 88-Not Attempted due to Medical Conditions or Safety Concerns. Roll Left to Right (QC): 3 Sit to Lying (QC): 3 Sit to Stand (QC): 5 Chair/Eyp-qa-Wchtx Xfer(QC): 5 Gait Training Does the Patient Walk?: Yes Distance: 150' Walk 10 feet (QC): 4 Walk 50 ft with 2 Turns(QC): 4 Walk 150 ft (QC): 4 Gait Persons Needed: 1 Gait Assistive Device: FWW Wheelchair Training Does the Pt Use a Wheelchair?: Yes Wheel 50 ft with 2 turns (QC): 1 Wheel 150 ft (QC): 1 Type of Wheelchair: Manual Stair Training Stair Training: Handrails/: 2 handrails #of Steps: 4 1 Step (curb) (QC): 4 4 Steps (QC): 4 Stairs: Pattern: Step to Balance Picking up an Object (QC): 88 ADL-Treatment Eating (QC): 6 Oral Hygiene (QC): 6 Shower/Bathe Self (QC): 4 (sponge bath in recliner chair, completes all areas with SUP) Upper Body Dressing (QC): 6 Lower Body Dressing (QC): 6 (Completes undergarments with IND within recliner chair/ at FWW level.) On/Off Footwear (QC): 5 (s/u for use of sock aide for R LE) Toileting Hygiene (QC): 6 Toilet Transfer (QC): 6 (use of FWW to commode.) Assessment/Plan Assessment and Plan Assess & Plan/Chief Complaint Assessment: 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 Severe constipation narcotic induced managed on laxatives now Hypothyroidism Subtle confusion now cleared Fall risk Advanced age Poor nutritional intake acute on chronic Plan: Pain meds but decreased Monitor blood pressure Maintain bowel regimen Inpatient rehabilitation protocol 12/03 Doing well but very frail Likely will need AL or SNF Minimize pain meds is successful Changed appt to next week (1) Closed right hip fracture Status: Acute (2) Hypothyroidism (3) Paget's disease (4) Osteoporosis (5) Falls (6) DVT prophylaxis (7) Anemia (8) Diverticulosis (9) Constipation (10) Incontinence (11) Advanced age (1) Closed right hip fracture Status: Acute (2) Hypothyroidism (3) Paget's disease (4) Osteoporosis (5) Falls (6) DVT prophylaxis (7) Anemia (8) Diverticulosis (9) Constipation (10) Incontinence (11) Advanced age (1) Closed right hip fracture Status: Acute (2) Hypothyroidism (3) Paget's disease (4) Osteoporosis (5) Falls (6) DVT prophylaxis (7) Anemia (8) Diverticulosis (9) Constipation (10) Incontinence (11) Advanced age PAUL PACHECO DO Sep 18, 2019 09:57
--- NOTE | 2019-09-18 10:12 | Speech Therapy Daily Note ---
Speech Daily Progress Note Subjective Date Seen by Provider: Sep 18, 2019 Time Seen by Provider: 09:30 Patient was alert, pleasant, and cooperative for all therapy activities. Patient was sitting upright in her chair for the duration of treatment. Objective Patient was re-administered the SLUMS to assess progress. Patient scored a 27/30 which falls within normal limits of cognitive level of functioning. Assessment Assessment Current Status: Excellent Progress Treatment Plan Continue Plan of Care Speech Short Term Goals Short Term Goals Short Term Goals 1. Patient will complete memory tasks related to her daily needs with 90% or greater with minimal cues. 2. Patient will complete problem-solving tasks related to her daily needs with 90% or greater with minimal cues. 3. Patient will complete safety awareness tasks related to her daily needs with 90% or greater with minimal cues. Speech Software Asset Manager Goals [facility] Goals Patient will improve cognitive-communication necessary for safety and daily living tasks with minimal assist. Speech-Plan Patient/Family Goals Patient/Family Goals: Patient reported that she wishes to return home to previous level of independence and mobility. Treatment Plan Speech Therapy Treatment Plan: Continue Plan of Care Treatment Duration: Sep 21, 2019 Frequency: 4 times per week Estimated Hrs Per Day: .5 hour per day Rehab Potential: Fair Barriers to Learning: Nutritional intake Pt/Family Agrees to Plan: Yes Safety Risks/Education Teaching Recipient: Patient Teaching Methods: Demonstration, Discussion Response to Teaching: Verbalize Understanding Education Topics Provided: Patient verbalized understanding of safety awareness, problem solving, and memory strategies to use for when she is discharged from the ARU. Time Speech Therapy Time In: 09:30 Speech Therapy Time Out: 10:00 Total Billed Time: 30 Billed Treatment Time 1, SLTS No QUALITY CODES EXPRESSION OF IDEAS/WANTS: 4 UNDERSTANDING VERBAL CONTENT: 4 BRIEF INTERVIEW MENTAL STATUS: YES REPETITION OF THREE WORDS: YES TEMPORAL ORIENTATION OF YEAR:CORRECT, MONTH: CORRECT, DAY: CORRECT RECALL OF SOCK: YES, COLOR: YES, BED: NO MEMORY/RECALL ABILITY OF CURRENT SEASON, ROOM NUMBER, AND THAT SHE IS IN THE [facility] DYAN MCGRAW Sep 18, 2019 10:12
--- NOTE | 2019-09-18 10:47 | Occupational Ther Daily Note ---
OT Current Status-Daily Note Subjective Pt seen in bed, states no pain in rest, 4/10 pain in stance/ walking. Pt agreeable to OT tx session with goals of bathing. Mental Status/Objective Patient Orientation: Person, Place, Situation, Normal For Age ADL-Treatment Therapy Code Descriptions/Definitions Functional [place] Measure: 0=Not Assessed/NA 4=Minimal Assistance 1=Total Assistance 5=Supervision or Setup 2=Maximal Assistance 6=Modified [place] 3=Moderate Assistance 7=Complete IndependenceSCALE: Activities may be completed with or without assistive devices. 1-Wochilgwqp-csuzvoa completes the activity by him/herself with no assistance from a helper. 5-Set-up or Clean-up Assistance-helper sets up or cleans up; patient completes activity. [place] assists only prior to or following the activity. 4-Supervision or Touching Assistance-helper provides verbal cues and/or touching/steadying and/or contact guard assistance as patient completes activity. Assistance may be provided throughout the activity or intermittently. 3-Partial/Moderate Assistance-helper does LESS THAN HALF the effort. [place] lifts, holds or supports trunk or limbs, but provides less than half the effort. 2-Substantial/Maximal Assistance-helper does MORE THAN HALF the effort. [place] lifts or holds trunk or limbs and provides more than half the effort. 4-Doghlwdwu-owazgi does ALL the effort. Patient does none of the effort to complete the activity. Or, the assistance of 2 or more helpers is required for the patient to complete the activity. If activity was not attempted, code reason: 7-Patient Refused. 9-Not Applicable-not attempted and the patient did not perform the activity before the current illness, exacerbation or injury. 10-Not Attempted due to Environmental Limitations-(lack of equipment, weather restraints, etc.). 88-Not Attempted due to Medical Conditions or Safety Concerns. Eating (QC): 6 Oral Hygiene (QC): 6 Shower/Bathe Self (QC): 6 Upper Body Dressing (QC): 6 Lower Body Dressing (QC): 4 (SBA/ cues for use of applied psychology chair for pant donning.) On/Off Footwear: 6 (use of sock aide. ) Toileting Hygiene (QC): 6 Toilet Transfer (QC): 6 Other Treatment Pt completes bed mob with IND, sit to stand with SBA to FWW. Pt transfers in shower with SBA, sits with control. pt completes showering with IND, able to dry self with intermittent assist (back). Pt completes gown donning in stance, ambulates with FWW to commode. Completes BM, hygiene with IND. Pt completes hair/ oral care with IND. Pt returns to recliner chair to complete LB dressing, practiced pant donning. Pt required minimal cues for correct AE for sock aide rather than applied psychology chair with sock donning. pt talkative throughout. Pt states she plans to return home to son, denies assist with ADLs; states main concern is walking from bedroom to bathroom down the hallway. Pt competes 10 min of min resistance arm bike with good endurance, returns to recliner with all needs met, call light in reach. Education OT Patient Education: Correct positioning, Exercise program, Home exercise program, Modified ADL techniques, Use of adapted equipment Teaching Recipient: Patient Teaching Methods: Demonstration, Discussion Response to Teaching: Verbalize Understanding, Return Demonstration OT Short Term Goals Short Term Goals Time Frame: Sep 11, 2019 Eatin Oral hygiene: 5 Toileting hygiene: 4 Shower/bathe self: 3 Upper body dressin Lower body dressin Putting on/taking off footwear: 3 OT Lamination Machine Operator Goals [facility] Goals Time Frame: Sep 18, 2019 Eating (QC): 6 (met) Oral Hygiene (QC): 6 (met) Toileting Hygiene (QC): 5 (met) Shower/Bathe Self (QC): 5 (met) Upper Body Dressing (QC): 5 (met) Lower Body Dressing (QC): 5 On/Off Footwear (QC): 5 (met) Additional Goals: 1-Demonstrate ADL Tasks, 2-Verbalize Understanding, 3- ImproveStrength/[place] 1=Demonstrate adherence to instructed precautions during ADL tasks. 2=Patient will verbalize/demonstrate understanding of assistive de vices/modifications for ADL. 3=Patient will improve strength/tolerance for activity to enable patient to perform ADL's. OT Education/Plan Problem List/Assessment Assessment: Decreased Activ Tolerance, Decreased UE Strength, Impaired I ADL's Discharge Recommendations Plan/Recommendations: Continue POC Therapy Discharge Recommendati: Home & Family Equpiment Recommendations-D/C: Hip Kit, Other, See Comments (FWW) Treatment Plan/Plan of Care Treatment,Training & Education: Yes Patient would benefit from OT for education, treatment and training to promote independence in ADL's, mobility, safety and/or upper extremity function for ADL's. Plan of Care: ADL Retraining, Functional Mobility, Group Exercise/Act as Ind, UE Funct Exercise/Act Treatment Duration: Sep 18, 2019 Frequency: 5 times per week Estimated Hrs Per Day: 1.5 hours per day Agreement: Yes Rehab Potential: Fair Time/GCodes Start Time: 08:00 Stop Time: 09:15 Total Time Billed (hr/min): 75 Billed Treatment Time 1, ADL 4 (60), EX (15)=75 VIKASH MARCOS OTR Sep 18, 2019 10:47
--- NOTE | 2019-09-18 11:35 | Physical Therapy Daily Note ---
PT Daily Note-Current Subjective Pt sitting in recliner upon arrival. Pt agrees to PT. Pain Numeric Pain Scale: 4 Location: Right Location Body Site: Hip Pain Description: Ache, Tightness Comment: Pt continues to reports pain/tightness in R groin. Mental Status Patient Orientation: Person, Place, Time, Situation Attachments: Other-See Comments (WMP for R groin after Rx) Transfers SCALE: Activities may be completed with or without assistive devices. 1-Mjqcvzyjhy-szqdzca completes the activity by him/herself with no assistance from a helper. 5-Set-up or Clean-up Assistance-helper sets up or cleans up; patient completes activity. [place] assists only prior to or following the activity. 4-Supervision or Touching Assistance-helper provides verbal cues and/or touching/steadying and/or contact guard assistance as patient completes activity. Assistance may be provided throughout the activity or intermittently. 3-Partial/Moderate Assistance-helper does LESS THAN HALF the effort. [place] lift s, holds or supports trunk or limbs, but provides less than half the effort. 2-Substantial/Maximal Assistance-helper does MORE THAN HALF the effort. [place] lifts or holds trunk or limbs and provides more than half the effort. 8-Zrplkbkht-qajfkh does ALL the effort. Patient does none of the effort to complete the activity. Or, the assistance of 2 or more helpers is required for the patient to complete the activity. If activity was not attempted, code reason: 7-Patient Refused. 9-Not Applicable-not attempted and the patient did not perform the activity before the current illness, exacerbation or injury. 10-Not Attempted due to Environmental Limitations-(lack of equipment, weather restraints, etc.). 88-Not Attempted due to Medical Conditions or Safety Concerns. Sit to Lying (QC): 5 Lying to Sitting/Side of Bed(Q: 5 Sit to Stand (QC): 5 Weight Bearing Right Lower Extremity: Right Weight Bearing/Tolerated Left Lower Extremity: Left Full Weight Bearing Gait Training Does the Patient Walk?: Yes Distance: 150' Walk 10 feet (QC): 5 Walk 50 ft with 2 Turns(QC): 5 Walk 150 ft (QC): 5 Gait Persons Needed: 1 Gait Assistive Device: FWW Pt walks with slight antalgic gait pattern as well as slow reno. Wheelchair Training Does the Pt Use a Wheelchair?: No Stair Training Stair Training: Handrails/: 2 handrails #of Steps: 4 1 Step (curb) (QC): 5 4 Steps (QC): 5 Stairs: Pattern: Step to Exercises Supine Ex: Ankle pumps, Quad Set, Hip abd/add Supine Reps: 15 Seated Therapy Exercises: Long arc quads, Hip flexion, Kicking activity Seated Reps: 15 NuStep Minutes: 10 NuStep Workload: 5 Treatments Pt transfers to standing using FWW. Pt ambulates using FWW then uses NuStep for 10m at WL 5. Pt completes set of 4 steps before transferring to EOM. Pt completes Supine EX then transfers to EOM for Seated Ex. Pt then ambulates in hallway back to room to rest. Pt transfers to Supine in bed with VC from RENTAL CLERK. Pt resting in bed with all needs met, call light next to pt. Assessment Current Status: Good Progress Pt tolerates Rx well but does continue to reports tightness in R groin with movement. RENTAL CLERK reassures pt that this is normal. PT Short Term Goals Short Term Goals Time Frame: Sep 11, 2019 Roll Left & Right: 3 Sit to lyin Lying to sitting on side of be: 3 Sit to stand: 3 Chair/qrc-cg-rhwgh transfer: 3 Walk 10 feet: 3 PT Nursing Home Goals Nursing Home Goals PT Nursing Home Goals Time Frame: Sep 25, 2019 Roll Left & Right (QC): 6 Sit to Lying (QC): 6 Lying-Sitting on Side/Bed(QC): 6 Sit to Stand (QC): 4 Chair/Vbq-yk-Lvauh Xfer(QC): 4 Toilet Transfer (QC): 4 Car Transfer (QC): 3 Walk 10 feet (QC): 3 Walk 50ft with 2 Turns (QC): 3 Walk 150 ft (QC): 3 Walking 10ft on Uneven Surface: 3 1 Step (curb) (QC): 3 4 Steps (QC): 3 PT Plan Problem List Problem List: Activity Tolerance, Functional Strength Treatment/Plan Treatment Plan: Continue Plan of Care Treatment Plan: Bed Mobility, Education, Functional Activity [place], Functional Strength, Group Therapy, Gait, Safety, Therapeutic Exercise, Transfers Treatment Duration: Sep 25, 2019 Frequency: At least 5 of 7 days/Wk (IRF) Estimated Hrs Per Day: 1.5 hours per day Patient and/or Family Agrees t: Yes Safety Risks/Education Patient Education: Gait Training, Transfer Techniques, Steps, Correct Positioning, Safety Issues Teaching Recipient: Patient Teaching Methods: Discussion Response to Teaching: Verbalize Understanding Time/GCodes Time In: 1000 Time Out: 1115 Total Billed Treatment Time: 75 Total Billed Treatment 1, GT x2 (30m), EX x2 (30m) & FA (15m) ALKA VERDUGO RENTAL CLERK Sep 18, 2019 11:35
--- NOTE | 2019-09-18 14:41 | NUR ---
CM/SS. Progress notes reflect that patient shared with RN she wasn't sure whether she would need to go to assisted living environment before returning home. Construction Job Cost Estimator left a message with son Yeyo Sosa requesting he call typewriter ribbon winder to participate in discussion about discharge planning since they reside together. Patient continues to describe pain and stiffness, explored with therapy staff who indicate she does have a heating pad in her room to assist with comfort.
--- NOTE | 2019-09-18 18:03 | NUR ---
Received order to D/C incisional belem when Dr. Yeyo Dowling's office returned call w f/u appt.
[2019-09-18 18:21] VITALS: BP 147/71
[2019-09-19] MEDS: LEVOTHYROXINE 88 MCG (LEVOTHORID) TAB PO SCH (05:37)
[2019-09-19 05:48] VITALS: BP 130/81
[2019-09-19] MEDS: DOCUSATE SODIUM 100 MG (COLACE) CAP PO SCH ×2 (08:30→20:05)
[2019-09-19] MEDS: VITAMIN D3 5,000 UNITS (CHOLECALCIFEROL ) CAPSULE PO SCH (08:30)
[2019-09-19] MEDS: RIVAROXABAN 10 MG TABLET (XARELTO) PO SCH (08:30)
[2019-09-19] MEDS: SENNA W/DOCUSATE (SENOKOT S) TABLET PO SCH ×2 (08:30→20:06)
[2019-09-19] MEDS: POLYETHYLENE GLYCOL 17 GM (MIRALAX) PACK PO SCH ×2 (08:38→20:05)
--- NOTE | 2019-09-19 09:04 | PM&R Progress Note ---
Subjective HPI/CC On Admission Date Seen by Provider: Sep 19, 2019 Time Seen by Provider: 09:15 Subjective/Events-last exam Pt doing pretty well today. Rescheduled her orthopedic surgery appointment for 09/24/19. Bowels are moving. Pain is pretty well controlled. Incision looks good. DC planned for home tomorrow No Lortab for the past 24 hours. Checked meds and labs Previously therapy notes Conferred with natural gas plant supervisor of Systems General: Fatigue Musculoskeletal: leg pain Objective Exam Vital Signs Vital Signs Date Time Temp Pulse Resp B/P (MAP) Pulse Ox O2 Delivery O2 Flow Rate FiO2 09/19/19 17:45 36.0 92 12 113/73 (86) 97 Room Air Capillary Refill : Less Than 3 SecondsLess Than 3 Seconds General Appearance: No Apparent Distress, WD/WN, Chronically ill, Thin HEENT: PERRL/EOMI, Normal ENT Inspection, Pharynx Normal Neck: Full Range of Motion, Normal Inspection, Non Tender, Supple, Carotid Bruit Respiratory: Chest Non Tender, Lungs Clear, Normal Breath Sounds, No Accessory Muscle Use, No Respiratory Distress Cardiovascular: Regular Rate, Rhythm, No Edema, No Gallop, No JVD, No Murmur, Normal Peripheral Pulses Gastrointestinal: Normal Bowel Sounds, No Organomegaly, No Pulsatile Mass, Non Tender, Soft Back: Normal Inspection, Decreased Range of Motion Extremity: Normal Capillary Refill, Normal Inspection, Normal Range of Motion (right leg limited range of motion due to pain), Non Tender, No Calf Tenderness, No Pedal Edema Neurologic/Psychiatric: Alert, Oriented x3, No Motor/Sensory Deficits, Normal Mood/Affect, sleeve setter II-XII Norm as Tested, Other (limited range of motion from right leg pain) Skin: Normal Color, Warm/Dry Lymphatic: No Adenopathy Results/Procedures Lab Patient resulted labs reviewed. FIM Transfers Therapy Code Descriptions/Definitions Functional [place] Measure: 0=Not Assessed/NA 4=Minimal Assistance 1=Total Assistance 5=Supervision or Setup 2=Maximal Assistance 6=Modified [place] 3=Moderate Assistance 7=Complete IndependenceSCALE: Activities may be completed with or without assistive devices. 7-Heziwrijjd-tuldktk completes the activity by him/herself with no assistance from a helper. 5-Set-up or Clean-up Assistance-helper sets up or cleans up; patient completes activity. [place] assists only prior to or following the activity. 4-Supervision or Touching Assistance-helper provides verbal cues and/or touching/steadying and/or contact guard assistance as patient completes activity. Assistance may be provided throughout the activity or intermittently. 3-Partial/Moderate Assistance-helper does LESS THAN HALF the effort. [place] lifts, holds or supports trunk or limbs, but provides less than half the effort. 2-Substantial/Maximal Assistance-helper does MORE THAN HALF the effort. [place] lifts or holds trunk or limbs and provides more than half the effort. 4-Llncqnijp-ayfksx does ALL the effort. Patient does none of the effort to complete the activity. Or, the assistance of 2 or more helpers is required for the patient to complete the activity. If activity was not attempted, code reason: 7-Patient Refused. 9-Not Applicable-not attempted and the patient did not perform the activity before the current illness, exacerbation or injury. 10-Not Attempted due to Environmental Limitations-(lack of equipment, weather restraints, etc.). 88-Not Attempted due to Medical Conditions or Safety Concerns. Roll Left to Right (QC): 3 Sit to Lying (QC): 5 Sit to Stand (QC): 5 Chair/Kvg-yq-Wqciv Xfer(QC): 5 Gait Training Does the Patient Walk?: Yes Distance: 150' Walk 10 feet (QC): 5 Walk 50 ft with 2 Turns(QC): 5 Walk 150 ft (QC): 5 Gait Persons Needed: 1 Gait Assistive Device: FWW Wheelchair Training Does the Pt Use a Wheelchair?: No Wheel 50 ft with 2 turns (QC): 1 Wheel 150 ft (QC): 1 Stair Training Stair Training: Handrails/: 2 handrails #of Steps: 4 1 Step (curb) (QC): 5 4 Steps (QC): 5 Stairs: Pattern: Step to Balance Picking up an Object (QC): 88 ADL-Treatment Eating (QC): 6 Oral Hygiene (QC): 6 Shower/Bathe Self (QC): 6 Upper Body Dressing (QC): 6 Lower Body Dressing (QC): 4 (SBA/ cues for use of rectifying attendant for pant donning.) On/Off Footwear (QC): 6 (use of sock aide. ) Toileting Hygiene (QC): 6 Toilet Transfer (QC): 6 Assessment/Plan Assessment and Plan Assess & Plan/Chief Complaint Assessment: 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 Severe constipation narcotic induced managed on laxatives now Hypothyroidism Subtle confusion now cleared Fall risk Advanced age Poor nutritional intake acute on chronic Plan: Pain meds but decreased Monitor blood pressure Maintain bowel regimen Inpatient rehabilitation protocol 12/03 Doing well but very frail Likely will need AL or SNF Minimize pain meds is successful Changed appt to next week DC home tomorrow (1) Closed right hip fracture Status: Acute (2) Hypothyroidism (3) Paget's disease (4) Osteoporosis (5) Falls (6) DVT prophylaxis (7) Anemia (8) Diverticulosis (9) Constipation (10) Incontinence (11) Advanced age (1) Closed right hip fracture Status: Acute (2) Hypothyroidism (3) Paget's disease (4) Osteoporosis (5) Falls (6) DVT prophylaxis (7) Anemia (8) Diverticulosis (9) Constipation (10) Incontinence (11) Advanced age (1) Closed right hip fracture Status: Acute (2) Hypothyroidism (3) Paget's disease (4) Osteoporosis (5) Falls (6) DVT prophylaxis (7) Anemia (8) Diverticulosis (9) Constipation (10) Incontinence (11) Advanced age PAUL PACHECO DO Sep 19, 2019 09:04
--- NOTE | 2019-09-19 09:25 | Occupational Ther Daily Note ---
OT Current Status-Daily Note Subjective Pt alert, lying in bed. Pt agrees to therapy. No c/o pain. Mental Status/Objective Patient Orientation: Person, Place, Time, Situation ADL-Treatment Pt declined shower, requested sponge bath. Pt completed sponge bath sitting in front of sink. Pt is able to don/doff upper body clothing by self. Pt dons/doffs lower body clothing by self. Using sock aid to don socks, doffs sock s lying in bed. Pt completed oral care standing at sink. Pt transferred to toilet using FWW and grabbars then complete hygiene and clothing manipulation. Therapy Code Descriptions/Definitions Functional [place] Measure: 0=Not Assessed/NA 4=Minimal Assistance 1=Total Assistance 5=Supervision or Setup 2=Maximal Assistance 6=Modified [place] 3=Moderate Assistance 7=Complete IndependenceSCALE: Activities may be completed with or without assistive devices. 5-Guelhbkcuy-mjtilua completes the activity by him/herself with no assistance from a helper. 5-Set-up or Clean-up Assistance-helper sets up or cleans up; patient completes activity. [place] assists only prior to or following the activity. 4-Supervision or Touching Assistance-helper provides verbal cues and/or touching/steadying and/or contact guard assistance as patient completes activity. Assistance may be provided throughout the activity or intermittently. 3-Partial/Moderate Assistance-helper does LESS THAN HALF the effort. [place] lifts, holds or supports trunk or limbs, but provides less than half the effort. 2-Substantial/Maximal Assistance-helper does MORE THAN HALF the effort. [place] l ifts or holds trunk or limbs and provides more than half the effort. 4-Lvrcggune-gnaudt does ALL the effort. Patient does none of the effort to complete the activity. Or, the assistance of 2 or more helpers is required for the patient to complete the activity. If activity was not attempted, code reason: 7-Patient Refused. 9-Not Applicable-not attempted and the patient did not perform the activity before the current illness, exacerbation or injury. 10-Not Attempted due to Environmental Limitations-(lack of equipment, weather restraints, etc.). 88-Not Attempted due to Medical Conditions or Safety Concerns. Oral Hygiene (QC): 6 Shower/Bathe Self (QC): 6 Upper Body Dressing (QC): 6 Lower Body Dressing (QC): 6 On/Off Footwear: 6 Toileting Hygiene (QC): 6 Toilet Transfer (QC): 6 Other Treatment Pt ambulated to therapy gym to complete arm bike for 10 min at minimal resistance to increase strength and activity tolerance. After therapy, pt sitting in recliner with call light/phone in reach. All needs met in room. OT Short Term Goals Short Term Goals Time Frame: Sep 11, 2019 Eatin Oral hygiene: 5 Toileting hygiene: 4 Shower/bathe self: 3 Upper body dressin Lower body dressin Putting on/taking off footwear: 3 OT Prison Goals Prison Goals Time Frame: Sep 18, 2019 Eating (QC): 6 (met) Oral Hygiene (QC): 6 (met) Toileting Hygiene (QC): 5 (met) Shower/Bathe Self (QC): 5 (met) Upper Body Dressing (QC): 5 (met) Lower Body Dressing (QC): 5 (met) On/Off Footwear (QC): 5 (met) Additional Goals: 1-Demonstrate ADL Tasks, 2-Verbalize Understanding, 3- ImproveStrength/[place] 1=Demonstrate adherence to instructed precautions during ADL tasks. 2=Patient will verbalize/demonstrate understanding of assistive devices/modifications for ADL. 3=Patient will improve strength/tolerance for activity to enable patient to perform ADL's. OT Education/Plan Problem List/Assessment Assessment: Decreased Activ Tolerance, Impaired Self-Care Skills Discharge Recommendations Plan/Recommendations: Continue POC Treatment Plan/Plan of Care Patient would benefit from OT for education, treatment and training to promote independence in ADL's, mobility, safety and/or upper extremity function for ADL's. Plan of Care: ADL Retraining, Functional Mobility, Group Exercise/Act as Ind, UE Funct Exercise/Act Treatment Duration: Sep 18, 2019 Frequency: 5 times per week Estimated Hrs Per Day: 1.5 hours per day Agreement: Yes Rehab Potential: Fair Time/GCodes Start Time: 08:00 Stop Time: 09:30 Total Time Billed (hr/min): 90 Billed Treatment Time 1 visit-ADL 5 (80 min) EX 1 (10 min) DAVIS VICTORIA Sep 19, 2019 09:25
--- NOTE | 2019-09-19 11:32 | NUR ---
CM/ANTOINETTE WEEKLY TEAM CONFERENCE & DISCHARGE PLANNING Patient understands we will be having our team meeting today, she has been making arrangements for her discharge for tomorrow back home with her son. Patient has considered her options we had discussed, she states she is feeling and doing better and would like to try to return directly home. She understands that if this did not work out, she could go to either a community prison environment or to respite at assisted living of her choice. HHC: Medicare Compare information provided to patient for [facility] agencies in her service area. After discussion, she has selected [facility] because her PCP and orthopedic surgeon are both within that system. Referral was initiated today verbally with [place] office and via fax through [facility] [employer] for RN, PT, OT. They understand patient discharge is tomorrow as it pertains to initial start of services. DME: Patient will need FWW, she has asked for BSC with arms for over her toilet, and to explore baskets for the FWW. Patient understands only the FWW is a covered item and that any other will be private pay. Reviewed HME agencies in patient service area, she has selected [facility]. Requested they send pictures of options for FWW baskets and BSC for patient review. Order final selections when known. Stucco Plasterer did not get a response from patient's son; however, patient indicates she has spoken to him last evening and they agree on this plan. Patient's sister in law can transport and lives close, she can spend time with patient during days. Provided Caregiver's List in case patient wants/needs a private pay option. Finalize tomorrow. Addendum: 09/19/19 at 1433 by TIFFANY CURRY IMM2 presented, signed charted. DME: Patient now states she does not want a commode or hip kit. She does understand those are available through medical supply [facility] and [facility] if desired. FWW will be coordinated when physician orders received, any attachments like baskets/bags are a personal choice style item from [employer], [employer], etc. Answered patient questions to her satisfaction.
--- NOTE | 2019-09-19 12:02 | Physical Therapy Daily Note ---
PT Daily Note-Current Subjective Pt agrees to Rx. States she anticipates going home tomorrow. " whenever my son can help me" Pain Location: No Pain Reported Mental Status Patient Orientation: Normal For Age Transfers SCALE: Activities may be completed with or without assistive devices. 5-Gcrilpspan-kiaettz completes the activity by him/herself with no assistance from a helper. 5-Set-up or Clean-up Assistance-helper sets up or cleans up; patient completes activity. [place] assists only prior to or following the activity. 4-Supervision or Touching Assistance-helper provides verbal cues and/or touching/steadying and/or contact guard assistance as patient completes activity. Assistance may be provided throughout the activity or intermittently. 3-Partial/Moderate Assistance-helper does LESS THAN HALF the effort. [place] lifts, holds or supports trunk or limbs, but provides less than half the effort. 2-Substantial/Maximal Assistance-helper does MORE THAN HALF the effort. [place] lifts or holds trunk or limbs and provides more than half the effort. 0-Gynvltcrg-hnudwf does ALL the effort. Patient does none of the effort to complete the activity. Or, the assistance of 2 or more helpers is required for the patient to complete the activity. If activity was not attempted, code reason: 7-Patient Refused. 9-Not Applicable-not attempted and the patient did not perform the activity before the current illness, exacerbation or injury. 10-Not Attempted due to Environmental Limitations-(lack of equipment, weather restraints, etc.). 88-Not Attempted due to Medical Conditions or Safety Concerns. all TRFs sit to stand mod I Weight Bearing Right Lower Extremity: Right Weight Bearing/Tolerated Left Lower Extremity: Left Full Weight Bearing Gait Training Does the Patient Walk?: Yes Gait Assistive Device: FWW [id number] Mod I to SBA, pt. could likely be up ad tesfaye, will consult other [facility] Exercises Seated Therapy Exercises: Ankle pumps, Sit to stand, Long arc quads, Hip fl exion, Hip abd/add Seated Reps: 15 Standing: Hip Abduction, Hamstring curls, Heel/toe raises, Marching, Sit to Stand Standing Reps: 12 Assessment Current Status: Good Progress PT Short Term Goals Short Term Goals Time Frame: Sep 11, 2019 Roll Left & Right: 3 Sit to lyin Lying to sitting on side of be: 3 Sit to stand: 3 Chair/tim-rd-pwfca transfer: 3 Walk 10 feet: 3 PT Reversal Print Inspector Goals Reversal Print Inspector Goals PT Long-Term Goals Time Frame: Sep 25, 2019 Roll Left & Right (QC): 6 Sit to Lying (QC): 6 Lying-Sitting on Side/Bed(QC): 6 Sit to Stand (QC): 4 Chair/Mhv-rw-Elrui Xfer(QC): 4 Toilet Transfer (QC): 4 Car Transfer (QC): 3 Walk 10 feet (QC): 3 Walk 50ft with 2 Turns (QC): 3 Walk 150 ft (QC): 3 Walking 10ft on Uneven Surface: 3 1 Step (curb) (QC): 3 4 Steps (QC): 3 PT Plan Treatment/Plan Treatment Plan: Continue Plan of Care Treatment Plan: Bed Mobility, Education, Functional Activity [place], Functional Strength, Group Therapy, Gait, Safety, Therapeutic Exercise, Transfers Treatment Duration: Sep 25, 2019 Frequency: At least 5 of 7 days/Wk (IRF) Estimated Hrs Per Day: 1.5 hours per day Patient and/or Family Agrees t: Yes Safety Risks/Education Patient Education: Gait Training, Transfer Techniques, Disease Process, Safety Issues Teaching Recipient: Patient Teaching Methods: Demonstration, Discussion Response to Teaching: Verbalize Understanding, Return Demonstration Time/GCodes Time In: 1130 Time Out: 1200 Total Billed Treatment Time: 30 Total Billed Treatment 1,GT15m,EX15m MATILDA POLLARD [facility] OUTREACH WORKER Sep 19, 2019 12:02
--- NOTE | 2019-09-19 12:11 | Physical Therapy Daily Note ---
PT Daily Note-Current Subjective Pt sitting in recliner upon arrival. Pt agrees to PT. Pain Numeric Pain Scale: 4 Location: Right Location Body Site: Thigh Pain Description: Ache, Tightness Mental Status Patient Orientation: Person, Place, Time, Situation Transfers SCALE: Activities may be completed with or without assistive devices. 6-Frewwxdqoo-cysmdfi completes the activity by him/herself with no assistance f rom a helper. 5-Set-up or Clean-up Assistance-helper sets up or cleans up; patient completes activity. [place] assists only prior to or following the activity. 4-Supervision or Touching Assistance-helper provides verbal cues and/or touching/steadying and/or contact guard assistance as patient completes activity. Assistance may be provided throughout the activity or intermittently. 3-Partial/Moderate Assistance-helper does LESS THAN HALF the effort. [place] lifts, holds or supports trunk or limbs, but provides less than half the effort. 2-Substantial/Maximal Assistance-helper does MORE THAN HALF the effort. [place] lifts or holds trunk or limbs and provides more than half the effort. 5-Extmotmik-smcfnw does ALL the effort. Patient does none of the effort to complete the activity. Or, the assistance of 2 or more helpers is required for the patient to complete the activity. If activity was not attempted, code reason: 7-Patient Refused. 9-Not Applicable-not attempted and the patient did not perform the activity before the current illness, exacerbation or injury. 10-Not Attempted due to Environmental Limitations-(lack of equipment, weather restraints, etc.). 88-Not Attempted due to Medical Conditions or Safety Concerns. Roll Left & Right (QC): 6 Sit to Lying (QC): 6 Lying to Sitting/Side of Bed(Q: 6 Sit to Stand (QC): 6 Chair/Ftm-al-Nozii Xfer(QC): 6 Toilet Transfer (QC): 6 Car Transfer (QC): 6 Pt takes additional time to complete transfers at times. Weight Bearing Right Lower Extremity: Right Weight Bearing/Tolerated Left Lower Extremity: Left Full Weight Bearing Gait Training Does the Patient Walk?: Yes Distance: 150' Walk 10 feet (QC): 6 Walk 50 ft with 2 Turns(QC): 6 Walk 150 ft (QC): 6 Walking 10ft/uneven surface-QC: 6 Gait Persons Needed: 1 Gait Assistive Device: FWW Pt's [place]no is slow but steady. Wheelchair Training Does the Pt Use a Wheelchair?: No Stair Training Stair Training: Handrails/: 2 handrails #of Steps: 4 1 Step (curb) (QC): 5 4 Steps (QC): 5 12 Steps (QC): 88 Stairs: Pattern: Step to Pt fatigues and does not attempt more steps. Balance Picking up an Object (QC): 88 Special Test Comments Pt doesn't attempt due to Hip Precautions. Exercises Seated Therapy Exercises: Ankle pumps, Long arc quads, Hip flexion, Kicking activity Seated Reps: 15 NuStep Minutes: 10 NuStep Workload: 5 Treatments Pt completes QC scoring items listed above. Pt also uses NuStep for 10m at WL 5 as well as complete Seated Ex. Pt returns to room to rest in recliner at end of Rx. with all needs met, call light in hand. Assessment Current Status: Good Progress Pt tolerates Rx well but does take additional time to complete tasks. PT Short Term Goals Short Term Goals Time Frame: Sep 11, 2019 Roll Left & Right: 3 Sit to lyin Lying to sitting on side of be: 3 Sit to stand: 3 Chair/hcu-qq-ewbqw transfer: 3 Walk 10 feet: 3 PT Usp Goals Usp Goals PT Sash Clamp Operator Goals Time Frame: Sep 25, 2019 Roll Left & Right (QC): 6 Sit to Lying (QC): 6 Lying-Sitting on Side/Bed(QC): 6 Sit to Stand (QC): 4 Chair/Ljc-mf-Idwaa Xfer(QC): 4 Toilet Transfer (QC): 4 Car Transfer (QC): 3 Walk 10 feet (QC): 3 Walk 50ft with 2 Turns (QC): 3 Walk 150 ft (QC): 3 Walking 10ft on Uneven Surface: 3 1 Step (curb) (QC): 3 4 Steps (QC): 3 PT Plan Problem List Problem List: Activity Tolerance Treatment/Plan Treatment Plan: Continue Plan of Care Treatment Plan: Bed Mobility, Education, Functional Activity [place], Functional Strength, Group Therapy, Gait, Safety, Therapeutic Exercise, Transfers Treatment Duration: Sep 25, 2019 Frequency: At least 5 of 7 days/Wk (IRF) Estimated Hrs Per Day: 1.5 hours per day Patient and/or Family Agrees t: Yes Safety Risks/Education Patient Education: Gait Training, Transfer Techniques, Steps, Correct Positioning, Safety Issues Teaching Recipient: Patient Teaching Methods: Discussion Response to Teaching: Verbalize Understanding Time/GCodes Time In: 1015 Time Out: 1115 Total Billed Treatment Time: 60 Total Billed Treatment 1, GT (15m), FA x2 (25m) & EX (20m) ALKA VERDUGO INSIDE PLANT SUPERVISOR Sep 19, 2019 12:11
--- NOTE | 2019-09-19 13:34 | NUR ---
"RD ASSESSMENT PMHx: GERD; diverticulosis; pancreatitis; Paget's disease PT INTERACTION: Pt was awake and pleasant during nutrition follow-up. Pt states she has been eating better since last assessment. Note avg PO intake of 51% x4d, per chart review. This is an improvement from avg of <25% during last assessment. Pt states no issues with n/v/c/d since last assessment. Note last BM was 09/19 and pt currently on bowel regimen of miralax BID; colace BID; and senna BID, per chart review. ABNORMAL NUTRITION-RELATED LAB VALUES LOW: Pro 6.3 HIGH: BUN 25; cr 1.37; glu 137 Est. kcal needs: 6198-3578 kcal | 25-30 kcal/kg Est. Pro needs: 66-79 g Pro | 1.0-1.2 g Pro/kg PES STATEMENT: Inadequate oral intake (NI-2.1) related to loss of appetite as evidenced by pt interview | avg PO intake 51% x4d INTERVENTION: Continue with current diet order of Regular diet. Continue with current supplementation order of Ensure Enlive with meals TID, for increased kcal intake. Provides 350 kcal and 13 g Pro per serving. Will continue to follow and reassess as pt needs and status change. MONITOR/EVALUATE: PO Intake; Plan of Care; Hydration Status; Weight Status; Lab Values Meggan Orona, MS, RD, LD"
[2019-09-19 17:45] VITALS: BP 113/73
[2019-09-19] MEDS ORDERED: ACHD5005 PO (19:40)
[2019-09-19] MEDS ORDERED: RIVA10T PO (19:40)
--- NOTE | 2019-09-19 19:42 | D/C HH Face to Face Order ---
D/C Face to Face Orders Reconcile Patient Problems Problems Reviewed?: Yes Instructions for Patient Home Health, Patient Instructions/FollowUp: Celsa Young 09/24/19 Dr Mcneil in 2 weeks Physician to follow Patient: Dr Andrzej Mcneil Discharge Diet for Home: No Restrictions Patient Problems: hip fracture weight loss Goals for Patient: [place] Patient Data-Allergies,Ht & Wt Patient Allergies: Coded Allergies: Sulfa (Sulfonamide Antibiotics) (Verified Allergy, Unknown, 05/04/14) Height (Feet): 5 Height (Inches): 6.00 Weight (Pounds): 142 Weight (Ounces): 0.0 Home Health Need/Face to Face Date of Face to Face: Sep 19, 2019 Clinical Findings: Generalized weakness and fatigue, Instability, Muscle weakness, Pain with ambulation, Unsteady gait I have seen Pt qxhd-nf-pufn: Yes Discharged To: Home Diagnosis/Conditions: hip fracture Patient is Homebound due to: [place] fall risk due to instabilty, Muscle weakness, Pain w/ambulation Homebound Status Due to the above stated illness, injury or surgical procedure (medical condi tion or diagnosis) and associated clinical findings, the patient is homebound because of his/her inability to leave home except with aid of a supportive device and/or person AND leaving the home requires a considerable and taxing effort or is medically contraindicated. Pt req the following assistanc: [facility] Nursing Orders Home Health Services Order: Nursing Services, Pool Table Mechanic-Evaluate & Treat, Physical Therapy-Evaluate & Treat Certify Stmt I certify that this patient is under my care and that I, a nurse practitioner or a physician; a assistant county attorney working with me, had a face to face encounter that - meets the physician face to face encounter requirements with this patient as dated. PAUL PACHECO DO Sep 19, 2019 19:42
[2019-09-20] MEDS: LEVOTHYROXINE 88 MCG (LEVOTHORID) TAB PO SCH (06:04)
[2019-09-20 06:19] VITALS: BP 103/65
[2019-09-20] MEDS: RIVAROXABAN 10 MG TABLET (XARELTO) PO SCH (08:01)
[2019-09-20] MEDS: SENNA W/DOCUSATE (SENOKOT S) TABLET PO SCH (08:01)
[2019-09-20] MEDS: DOCUSATE SODIUM 100 MG (COLACE) CAP PO SCH (08:01)
[2019-09-20] MEDS: VITAMIN D3 5,000 UNITS (CHOLECALCIFEROL ) CAPSULE PO SCH (08:01)
[2019-09-20] MEDS: POLYETHYLENE GLYCOL 17 GM (MIRALAX) PACK PO SCH (08:03)
--- NOTE | 2019-09-20 09:26 | Therapy Team Discharge Summary ---
Therapy Discharge Summary Discharge Recommendations Date of Discharge Physical Therapy Patient came to rehab after a right MILAGRO. Upon evaluation patient performed bed mobility with max assist, supine <-> sit max assist, sit <-> stand mod assist, transfers mod assist, ambulated a couple of feet using a rolling walker with mod assist, no stair at that time. Patient has been performing bed mobility and transfer training, balance and endurance training, functional strengthening, stair training, gait training, and education. 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 Now, patient performs bed mobility and transfers with independence, car transfer with independence, ambulates 150' with a rolling walker with independence (including 50' with at least 2 turns of 90 degrees and 10' over an uneven surface), and can go up and down 4 steps using 2 handrails with setup. Patient is discharging from this facility today and will be discharged from PT at this time. Occupational Therapy Decreased Activ Tolerance, Impaired Self-Care Skills PT Solution Specialist Goals Solution Specialist Goals PT Solution Specialist Goals Time Frame: Sep 25, 2019 Roll Left to Right (QC): 6 Sit to Lying (QC): 6 Lying-Sitting on Side/Bed(QC): 6 Sit to Stand (QC): 4 Chair/Iht-pe-Fsdbu Xfer(QC): 4 Car Transfer (QC): 3 Walk 10 feet (QC): 3 Walk 10ft-Uneven Surface(QC): 3 Walk 50ft with 2 Turns (QC): 3 Walk 150 ft (QC): 3 1 Step (curb) (QC): 3 4 Steps (QC): 3 OT Solution Specialist Goals Assisted Goals Time Frame: Sep 18, 2019 Eating (QC): 6 (met) Oral Hygiene (QC): 6 (met) Shower/Bathe Self (QC): 5 (met) Upper Body Dressing (QC): 5 (met) Lower Body Dressing (QC): 5 (met) On/Off Footwear (QC): 5 (met) Toileting Hygiene (QC): 5 (met) Toilet/Commode Transfer (QC): 4 Additional Goals: 1-Demonstrate ADL Tasks, 2-Verbalize Understanding, 3- ImproveStrength/Dexter 1=Demonstrate adherence to instructed precautions during ADL tasks. 2=Patient will verbalize/demonstrate understanding of assistive devices/modifications for ADL. 3=Patient will improve strength/tolerance for activity to enable patient to perform ADL's. Speech Solution Specialist Goals Assisted Goals Patient will improve cognitive-communication necessary for safety and daily living tasks with minimal assist. ABE LEE PT Sep 20, 2019 09:26
--- NOTE | 2019-09-20 09:50 | NUR ---
CM/SS DISCHARGE Patient discharging home today as planned. HHC: Finalized with [facility], they will provide services from the [facility]. DME: Coordinated FWW with [facility], they will deliver to patient room prior to her dismissal from unit. Patient has informed Unit RN that her son will transport her later after work, he is apparently a professor at [employer]. Flow Manager again left message for him at home and on cell just to touch base about discharge, no response as of yet. Patient is capable to make all her arrangements with him and other supports. Unit RN aware.
--- NOTE | 2019-09-20 10:31 | NUR ---
ISLAND DRESSING REMOVED FROM RIGHT HIP INCISION. INCISION IS WELL APPROXIMATED WITH STERI STRIPS INTACT. NO REDNESS OR DRAINAGE NOTED.
--- NOTE | 2019-09-20 11:16 | Therapy Team Discharge Summary ---
Therapy Discharge Summary Discharge Recommendations Date of Discharge Occupational Therapy Pt admits with R MILAGRO. Pt admitting QC's include TD with socks/ footwear and LB dressing, pt was mod A with toilet hygiene. Pt and OT work towards higher functional IND with UE exercise, AE education, functional ambulation, safety training. Pt limited by pain. Pt d/c's with all LTG's achieved/ IND within ADL tasks. Pt d/c's to son's home, no OT services rendered post-ARU. D/c OT. OT recommendations: hip kit, FWW. Decreased Activ Tolerance, Impaired Self-Care Skills PT Program Management Professional Goals Program Management Professional Goals PT Program Management Professional Goals Time Frame: Sep 25, 2019 Roll Left to Right (QC): 6 Sit to Lying (QC): 6 Lying-Sitting on Side/Bed(QC): 6 Sit to Stand (QC): 4 Chair/Mhu-xz-Buaye Xfer(QC): 4 Car Transfer (QC): 3 Walk 10 feet (QC): 3 Walk 10ft-Uneven Surface(QC): 3 Walk 50ft with 2 Turns (QC): 3 Walk 150 ft (QC): 3 1 Step (curb) (QC): 3 4 Steps (QC): 3 OT Mcc Goals Program Management Professional Goals Time Frame: Sep 18, 2019 Eating (QC): 6 (met) Oral Hygiene (QC): 6 (met) Shower/Bathe Self (QC): 5 (met) Upper Body Dressing (QC): 5 (met) Lower Body Dressing (QC): 5 (met) On/Off Footwear (QC): 5 (met) Toileting Hygiene (QC): 5 (met) Toilet/Commode Transfer (QC): 4 Additional Goals: 1-Demonstrate ADL Tasks, 2-Verbalize Understanding, 3- ImproveStrength/Dexter 1=Demonstrate adherence to instructed precautions during ADL tasks. 2=Patient will verbalize/demonstrate understanding of assistive devices/modifications for ADL. 3=Patient will improve strength/tolerance for activity to enable patient to perform ADL's. Speech Mcc Goals Mcc Goals Patient will improve cognitive-communication necessary for safety and daily living tasks with minimal assist. VIKASH MARCOS OTR Sep 20, 2019 11:16
[2019-09-20 12:35] VITALS: BP 103/65
--- NOTE | 2019-09-20 12:35 | NUR ---
BECKA HU demonstrates understanding of discharge instructions and accurately returns instructions upon questioning. Copy of Post-Discharge Instructions given to PATIENT. BECKA HU is able to manage continuing needs after discharge WITH [facility]. Patient's belongings returned to PATIENT. Patient discharged from [facility] of [facility] on 09/20/2019 at 1235. BECKA HU left floor via WHEELCHAIR, accompanied by STAFF AND FAMILY.
--- NOTE | 2019-09-20 15:08 | Discharge Summary ---
Diagnosis/Chief Complaint Date of Admission Sep 04, 2019 at 15:30 Date of Discharge Sep 20, 2019 at 12:35 Discharge Date: Sep 20, 2019 Discharge Diagnosis Assessment: 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 Severe constipation narcotic induced managed on laxatives now Hypothyroidism Subtle confusion now cleared Fall risk Advanced age Poor nutritional intake acute on chronic Plan: Pain meds but decreased Monitor blood pressure Maintain bowel regimen Inpatient rehabilitation protocol 12/03 Doing well but very frail Likely will need AL or SNF Minimize pain meds is successful Changed appt to next week DC home tomorrow (1) Closed right hip fracture Status: Acute (2) Hypothyroidism (3) Paget's disease (4) Osteoporosis (5) Falls (6) DVT prophylaxis (7) Anemia (8) Diverticulosis (9) Constipation (10) Incontinence (11) Advanced age (1) Closed right hip fracture Status: Acute (2) Hypothyroidism (3) Paget's disease (4) Osteoporosis (5) Falls (6) DVT prophylaxis (7) Anemia (8) Diverticulosis (9) Constipation (10) Incontinence (11) Advanced age (1) Closed right hip fracture Status: Acute (2) Hypothyroidism (3) Paget's disease (4) Osteoporosis (5) Falls (6) DVT prophylaxis (7) Anemia (8) Diverticulosis (9) Constipation (10) Incontinence (11) Advanced age Discharge Summary Discharge Physical Examination Allergies: Coded Allergies: Sulfa (Sulfonamide Antibiotics) (Verified Allergy, Unknown, 05/04/14) Vitals & I&Os Vital Signs Date Time Temp Pulse Resp B/P (MAP) Pulse Ox O2 Delivery O2 Flow Rate FiO2 09/20/19 12:35 36.7 80 16 103/65 94 Room Air General Appearance: Alert, Oriented X3, Cooperative Respiratory: Clear to Auscultation Cardiovascular: Regular Rate Neuro: Normal Gait, Normal Speech, Strength at 5/5 X4 Ext Psych/Mental Status: Mental Status NL Hospital Course Was the Problem List Reviewed?: Yes Hospital course: Pt had an uneventful 17 day hospital course in inpatient rehab after suffering a fall with right hip fracture. She was repaired at [facility] due to prior arthroplasty by Dr. Dowling and was transported back to [facility] rehab. Her labs remained stable, no need for any transfusions and BP remained stable. Narcotic bowel resolved with multiple laxatives. Pain was well controlled with a minimal amount of Lortab since a full tab caused significant lethargy and delirium. IS was maintained, no significant decline or decompensation occurred during the hospital course and although frail, with a chronic loss of appetite she was deemed stable for discharge home on home health, will see Dr. Mcneil in two weeks and Dr. Dowling next week for staple removal. Labs (last 24 hrs) Laboratory Tests 09/05/19 05:04: White Blood Count 9.2, Red Blood Count 3.70L, Hemoglobin 10.7#L, Hematocrit 33L, Mean Corpuscular Volume 88, Mean Corpuscular Hemoglobin 29, Mean Corpuscular Hemoglobin Concent 33, Red Cell Distribution Width 13.1, Platelet Count 158, Mean Platelet Volume 10.6H, Neutrophils (%) (Auto) 68, Lymphocytes (%) (Auto) 15, Monocytes (%) (Auto) 11, Eosinophils (%) (Auto) 5, Basophils (%) (Auto) 0, Neutrophils # (Auto) 6.2, Lymphocytes # (Auto) 1.4, Monocytes # (Auto) 1.0, Eosinophils # (Auto) 0.5H, Basophils # (Auto) 0.0, Sodium Level 138, Potassium Level 4.3, Chloride Level 105, Carbon Dioxide Level 23, Anion Gap 10, Blood Urea Nitrogen 25H, Creatinine 0.96, Estimat Glomerular Filtration Rate 55, BUN/Creatinine Ratio 26, Glucose Level 149H, Calcium Level 8.8, Corrected Calci um 9.8, Total Bilirubin 0.9, Aspartate Amino Transf (AST/SGOT) 30, Alanine Aminotransferase (ALT/SGPT) 22, Alkaline Phosphatase 83, Total Protein 5.6L, Albumin 2.8L 09/10/19 05:44: White Blood Count 8.9, Red Blood Count 3.89L, Hemoglobin 11.4L, Hematocrit 35, Mean Corpuscular Volume 89, Mean Corpuscular Hemoglobin 29, Mean Corpuscular Hemoglobin Concent 33, Red Cell Distribution Width 13.7, Platelet Count 248, Mean Platelet Volume 10.3, Neutrophils (%) (Auto) 61, Lymphocytes (%) (Auto) 21, Monocytes (%) (Auto) 9, Eosinophils (%) (Auto) 9, Basophils (%) (Auto) 1, Neutrophils # (Auto) 5.4, Lymphocytes # (Auto) 1.8, Monocytes # (Auto) 0.8, Eosinophils # (Auto) 0.8H, Basophils # (Auto) 0.1, Sodium Level 138, Potassium Level 4.2, Chloride Level 105, Carbon Dioxide Level 23, Anion Gap 10, Blood Urea Nitrogen 25H, Creatinine 1.19, Estimat Glomerular Filtration Rate 43, BUN/Creatinine Ratio 21, Glucose Level 146H, Calcium Level 8.8, Corrected Calcium 9.7, Total Bilirubin 0.7, Aspartate Amino Transf (AST/SGOT) 22, Alanine Aminotransferase (ALT/SGPT) 26, Alkaline Phosphatase 87, Total Protein 5.9L, Albumin 2.9L 09/17/19 04:17: White Blood Count 7.4, Red Blood Count 4.17L, Hemoglobin 12.3, Hematocrit 38, Mean Corpuscular Volume 90, Mean Corpuscular Hemoglobin 30, Mean Corpuscular Hemoglobin Concent 33, Red Cell Distribution Width 14.4, Platelet Count 308, Mean Platelet Volume 10.3, Neutrophils (%) (Auto) 55, Lymphocytes (%) (Auto) 29, Monocytes (%) (Auto) 9, Eosinophils (%) (Auto) 7, Basophils (%) (Auto) 1, Neutrophils # (Auto) 4.0, Lymphocytes # (Auto) 2.1, Monocytes # (Auto) 0.6, Eosinophils # (Auto) 0.5H, Basophils # (Auto) 0.1, Sodium Level 141, Potassium Level 4.2, Chloride Level 106, Carbon Dioxide Level 25, Anion Gap 10, Blood Urea Nitrogen 25H, Creatinine 1.37H, Estimat Glomerular Filtration Rate 36, BUN/Creatinine Ratio 18, Glucose Level 137H, Calcium Level 9.2, Corrected Calcium 9.8, Total Bilirubin 0.4, Aspartate Amino Transf (AST/SGOT) 17, Alanine Aminotransferase (ALT/SGPT) 15, Alkaline Phosphatase 108, Total Protein 6.3L, Albumin 3.3 Pending Labs Laboratory Tests 09/05/19 05:04: White Blood Count 9.2, Red Blood Count 3.70, Hemoglobin 10.7, Hematocrit 33, Mean Corpuscular Volume 88, Mean Corpuscular Hemoglobin 29, Mean Corpuscular Hemoglobin Concent 33, Red Cell Distribution Width 13.1, Platelet Count 158, Mean Platelet Volume 10.6, Neutrophils (%) (Auto) 68, Lymphocytes (%) (Auto) 15, Monocytes (%) (Auto) 11, Eosinophils (%) (Auto) 5, Basophils (%) (Auto) 0, Neutrophils # (Auto) 6.2, Lymphocytes # (Auto) 1.4, Monocytes # (Auto) 1.0, Eosinophils # (Auto) 0.5, Basophils # (Auto) 0.0, Sodium Level 138, Potassium Level 4.3, Chloride Level 105, Carbon Dioxide Level 23, Anion Gap 10, Blood Urea Nitrogen 25, Creatinine 0.96, Estimat Glomerular Filtration Rate 55, BUN/Creatinine Ratio 26, Glucose Level 149, Calcium Level 8.8, Corrected Calcium 9.8, Total Bilirubin 0.9, Aspartate Amino Transf (AST/SGOT) 30, Alanine Aminotra nsferase (ALT/SGPT) 22, Alkaline Phosphatase 83, Total Protein 5.6, Albumin 2.8 09/10/19 05:44: White Blood Count 8.9, Red Blood Count 3.89, Hemoglobin 11.4, Hematocrit 35, Mean Corpuscular Volume 89, Mean Corpuscular Hemoglobin 29, Mean Corpuscular Hemoglobin Concent 33, Red Cell Distribution Width 13.7, Platelet Count 248, Mean Platelet Volume 10.3, Neutrophils (%) (Auto) 61, Lymphocytes (%) (Auto) 21, Monocytes (%) (Auto) 9, Eosinophils (%) (Auto) 9, Basophils (%) (Auto) 1, Neutrophils # (Auto) 5.4, Lymphocytes # (Auto) 1.8, Monocytes # (Auto) 0.8, Eosinophils # (Auto) 0.8, Basophils # (Auto) 0.1, Sodium Level 138, Potassium Level 4.2, Chloride Level 105, Carbon Dioxide Level 23, Anion Gap 10, Blood Urea Nitrogen 25, Creatinine 1.19, Estimat Glomerular Filtration Rate 43, BUN/Creatinine Ratio 21, Glucose Level 146, Calcium Level 8.8, Corrected Calcium 9.7, Total Bilirubin 0.7, Aspartate Amino Transf (AST/SGOT) 22, Alanine Aminotransferase (ALT/SGPT) 26, Alkaline Phosphatase 87, Total Protein 5.9, Albumin 2.9 09/17/19 04:17: White Blood Count 7.4, Red Blood Count 4.17, Hemoglobin 12.3, Hematocrit 38, Mean Corpuscular Volume 90, Mean Corpuscular Hemoglobin 30, Mean Corpuscular Hemoglobin Concent 33, Red Cell Distribution Width 14.4, Platelet Count 308, Mean Platelet Volume 10.3, Neutrophils (%) (Auto) 55, Lymphocytes (%) (Auto) 29, Monocytes (%) (Auto) 9, Eosinophils (%) (Auto) 7, Basophils (%) (Auto) 1, Neutrophils # (Auto) 4.0, Lymphocytes # (Auto) 2.1, Monocytes # (Auto) 0.6, Eosinophils # (Auto) 0.5, Basophils # (Auto) 0.1, Sodium Level 141, Potassium Level 4.2, Chloride Level 106, Carbon Dioxide Level 25, Anion Gap 10, Blood Urea Nitrogen 25, Creatinine 1.37, Estimat Glomerular Filtration Rate 36, BUN/Creatinine Ratio 18, Glucose Level 137, Calcium Level 9.2, Corrected Calcium 9.8, Total Bilirubin 0.4, Aspartate Amino Transf (AST/SGOT) 17, Alanine Aminotransferase (ALT/SGPT) 15, Alkaline Phosphatase 108, Total Protein 6.3, Albumin 3.3 Discharge Home Medications: Active Scripts Active Hydrocodone/Acetaminophen 5/325mg Tablet (Acetaminophen/Hydrocodone Bitart) 1 Tab Tab 0.5 Tab PO Q4H PRN Xarelto Tablet (Rivaroxaban) 10 Mg Tablet 10 Mg PO DAILY Vitamin D3 (Cholecalciferol (Vitamin D3)) 5,000 Unit Capsule 5,000 Unit PO DAILY Stool Softener (Docusate Sodium) 100 Mg Capsule 100 Mg PO DAILY Levothyroxine Sodium 88 Mcg Tablet 88 Mcg PO DAILY Instructions to patient/family Please see electronic discharge instructions given to patient. Diagnosis/Problems Diagnosis/Problems (1) Closed right hip fracture Status: Acute (2) Hypothyroidism (3) Paget's disease (4) Osteoporosis (5) Falls (6) DVT prophylaxis (7) Anemia (8) Diverticulosis (9) Constipation (10) Incontinence (11) Advanced age Clinical Quality Measures DVT/VTE Risk/Contraindication: Risk Factor Score Per Nursin RFS Level Per Nursing on Admit: 4+=Very High PAUL PACHECO DO Sep 20, 2019 15:08
== END 2019-09-20 12:35 | disposition home health service (06) | DRG 561 ==
LOC: UNDOADMIN 03:30
PROVIDERS: ADMIT Internal Medicine; ATTEND Internal Medicine
DX: S72.001D Fracture of unspecified part of neck of right femur, subsequent encounter for closed fracture with routine healing (principal); R54 Age-related physical debility; R32 Unspecified urinary incontinence; K59.03 Drug induced constipation; R41.0 Disorientation, unspecified; F32.9 Major depressive disorder, single episode, unspecified; M88.9 Osteitis deformans of unspecified bone; E03.9 Hypothyroidism, unspecified; K21.9 Gastro-esophageal reflux disease without esophagitis; M81.0 Age-related osteoporosis without current pathological fracture; L30.9 Dermatitis, unspecified; K57.90 Diverticulosis of intestine, part unspecified, without perforation or abscess without bleeding; Z91.81 History of falling; W19.XXXD Unspecified fall, subsequent encounter; Y92.009 Unspecified place in unspecified non-institutional (private) residence as the place of occurrence of the external cause; T40.605A Adverse effect of unspecified narcotics, initial encounter
CPT/HCPCS: 36415; 80053; 85025; 94664

== ENCOUNTER 2019-09-28 14:05 | Outpatient (RCR) | payer MEDICARE ==
[~2019-09-28 14:05] MED LIST changes: +ACHD5005 PO; +CHOL5000 PO; +LEVO88TA54 PO; +RIVA10T PO; +RIVA10TA PO
== END 2019-12-27 | disposition home or self-care (01) ==
LOC: CARD 14:05
PROVIDERS: ATTEND Internal Medicine
DX: R55 Syncope and collapse (principal)
CPT/HCPCS: 93225; 93226

== ENCOUNTER 2019-10-05 13:39 | Outpatient (RCR) | payer MEDICARE | END 2020-01-03 | disposition home or self-care (01) | LOC: CARD 13:39 | PROVIDERS: ATTEND Internal Medicine | DX: R55 Syncope and collapse (principal) ==

== ENCOUNTER 2019-11-13 13:34 | Outpatient (RCR) | payer MEDICARE | END 2020-01-30 | disposition home or self-care (01) | DX: M81.0 Age-related osteoporosis without current pathological fracture (principal); R26.89 Other abnormalities of gait and mobility; Z86.73 Personal history of transient ischemic attack (TIA), and cerebral infarction without residual deficits; Z87.81 Personal history of (healed) traumatic fracture; Z96.641 Presence of right artificial hip joint ==